=== PATIENT | female | born 1950 | race Caucasian/White ===

== ENCOUNTER 2019-05-02 14:04 | Outpatient (RCR) | payer MEDICARE, OTHER, SELFPAY | END 2019-05-19 23:59 | disposition home or self-care (01) | LOC: AOT 14:04 | PROVIDERS: Family Provider Family Medicine; PCP Family Medicine; Referring Provider Orthopaedic Surgery; Visit Provider Orthopaedic Surgery | DX: M25.532 Pain in left wrist (principal) | CPT/HCPCS: 97110; 97166; 97530 ==

== ENCOUNTER 2019-05-20 06:00 | Outpatient (RCR) | payer MEDICARE, OTHER, SELFPAY | END 2019-06-01 23:00 | disposition home or self-care (01) | LOC: AOT 06:00 | PROVIDERS: Family Provider Family Medicine; PCP Family Medicine; Referring Provider Orthopaedic Surgery; Visit Provider Orthopaedic Surgery | DX: M25.532 Pain in left wrist (principal) | CPT/HCPCS: 97530 ==

== ENCOUNTER → 2019-12-24 09:59 | Outpatient (BNVA) | payer MEDICARE, OTHER, SELFPAY | PROVIDERS: Family Provider Family Medicine; PCP Family Medicine; Visit Provider Internal Medicine | DX: R53.83 Other fatigue (principal); Z79.899 Other long term (current) drug therapy; Z11.59 Encounter for screening for other viral diseases; Z11.1 Encounter for screening for respiratory tuberculosis; M32.9 Systemic lupus erythematosus, unspecified; R76.8 Other specified abnormal immunological findings in serum; D86.9 Sarcoidosis, unspecified; N18.9 Chronic kidney disease, unspecified; M25.50 Pain in unspecified joint | CPT/HCPCS: 36415; 99204 ==

== ENCOUNTER 2019-12-24 12:00 | Outpatient (CLI) | payer MEDICARE, OTHER, SELFPAY ==
--- NOTE | 2019-12-24 12:22 | XR_ITS ---
WS: [id number] Right elbow, 2 views, 12/24/2019 Clinical Data: elbow pain Comparison: None. Findings: No fractures or dislocations are seen. The radial head is normal. The soft tissues are unremarkable. No bone destruction or erosion is present. There is no periarticular demineralization or calcificatio n seen. XR/XR elbow RT 2V [id number] Impression: Negative right elbow.
--- NOTE | 2019-12-24 12:22 | XR_ITS ---
WS: [id number] Right hand, 2 views, 12/24/2019 Clinical Data: hand pain Comparison: None. Findings: No fractures or dislocations are seen. The soft tissues are unremarkable. The joint space s are normal Mild periarticular demineralization of the IP joints is present. XR/XR hand RT 2V [id number] Impression: Mild periarticular demineralization of the IP joints.
--- NOTE | 2019-12-24 12:22 | XR_ITS ---
WS: [id number] Left hand, 2 views, 12/24/2019 Clinical Data: hand pain Comparison: None. Findings: No fractures or dislocations are seen. The soft tissues are unremarkable. The joint spaces are normal Mild periarticular demineralization of the IP joints is noted. XR/XR hand LT 2V [id number] Impression: Mild periarticular demineralization of the IP joints.
== END 2019-12-24 12:01 | disposition home or self-care (01) ==
LOC: RADWPI 12:07
PROVIDERS: Family Provider Family Medicine; PCP Family Medicine; Visit Provider Internal Medicine
DX: M25.521 Pain in right elbow (principal); M79.642 Pain in left hand; M79.641 Pain in right hand; M81.0 Age-related osteoporosis without current pathological fracture; R76.8 Other specified abnormal immunological findings in serum; D86.9 Sarcoidosis, unspecified
CPT/HCPCS: 73070; 73120; 80053; 81003; 82306; 82550; 82955; 83540; 84550; 85025; 86140; 86431; 86480; 86704; 86803; 86812; 87340

== ENCOUNTER → 2020-02-28 10:46 | Outpatient (BNVA) | payer MEDICARE, OTHER, SELFPAY | PROVIDERS: Family Provider Family Medicine; PCP Family Medicine; Visit Provider Internal Medicine | DX: R76.8 Other specified abnormal immunological findings in serum (principal); M06.9 Rheumatoid arthritis, unspecified; M32.9 Systemic lupus erythematosus, unspecified; N18.9 Chronic kidney disease, unspecified | CPT/HCPCS: 99214 ==

== ENCOUNTER 2020-03-07 13:59 | Outpatient (CLI) | payer MEDICARE, OTHER, SELFPAY ==
--- NOTE | 2020-03-07 14:03 | US_ITS ---
WS: [id number] RENAL ULTRASOUND REASON FOR EXAM: CHRONIC KIDNEY DZ, STAGE 3 TECHNIQUE: Grayscale and Doppler ultrasound examination of the kidneys. FINDINGS: Right kidney: Right kidney measures 9.7 cm x 4.9 cm x 5.0 cm. Large amount of sinus fibrolipomatosis. No mass, calculus, or hydronephrosis. Left kidney: Left kidney measures 9.9 cm x 4.4 cm x 6.2 cm. Large amount of sinus fibrolipomatosis. N o mass, calculus, or hydronephrosis. No mass or calculus is seen in the urinary bladder. US/US renal BI* [id number] IMPRESSION: Small kidneys with significant renal parenchymal loss.
== END 2020-03-07 14:00 | disposition home or self-care (01) ==
PROVIDERS: PCP Family Medicine; Visit Provider Internal Medicine Nephrology
DX: N18.31 Chronic kidney disease, stage 3a (principal)
CPT/HCPCS: 76770

== ENCOUNTER → 2020-05-21 12:40 | Outpatient (BNVA) | payer MEDICARE, OTHER, SELFPAY | PROVIDERS: PCP Family Medicine; Visit Provider Internal Medicine | DX: M06.9 Rheumatoid arthritis, unspecified (principal); N18.9 Chronic kidney disease, unspecified; R76.8 Other specified abnormal immunological findings in serum | CPT/HCPCS: 99214 ==

== ENCOUNTER 2020-07-01 09:06 | Outpatient (CLI) | payer MEDICARE, OTHER, SELFPAY ==
--- NOTE | 2020-07-01 09:12 | MM_ITS ---
WS: [id number] BILATERAL DIGITAL DIAGNOSTIC MAMMOGRAM MAMMOGRAPHY WITH CAD CLINICAL INFORMATION: BREAST LESION HISTORY: COMPARISON: None. TECHNIQUE: Bilateral CC, MLO, and ML views. FINDINGS: Scattered fibroglandular densities bilaterally. Palpable marker inner left breast. No mammographic ab normalities in this area. Ultrasound is pending. Vascular calcification. A few punctate calcifications. Right breast is unremarkable. ULTRASOUND BREAST LEFT TECHNIQUE: Ultrasound left breast focused area of concern. CLINICAL INFORMATION: BREAST LESION COMPARISON: None. FINDINGS: Ultrasound left breast at the 9 to 10:00 position 6 cm from the nipple in the area of concern. Normal underlying breast tissue. No cystic or solid lesions. No lesions to target for biopsy. Recommend ret urn to annual screening mammography. MM/[place] [id number] IMPRESSION: BI-RADS: 2-Benign FOLLOW UP: 1 Year Follow-up Recommend return to annual screening mammography.
--- NOTE | 2020-07-01 10:07 | US_ITS ---
WS: [id number] BILATERAL DIGITAL DIAGNOSTIC MAMMOGRAM MAMMOGRAPHY WITH CAD CLINICAL INFORMATION: BREAST LESION HISTORY: COMPARISON: None. TECHNIQUE: Bilateral CC, MLO, and ML views. FINDINGS: Scattered fibroglandular densities bilaterally. Palpable marker inner left breast. No mammographic ab normalities in this area. Ultrasound is pending. Vascular calcification. A few punctate calcifications. Right breast is unremarkable. ULTRASOUND BREAST LEFT TECHNIQUE: Ultrasound left breast focused area of concern. CLINICAL INFORMATION: BREAST LESION COMPARISON: None. FINDINGS: Ultrasound left breast at the 9 to 10:00 position 6 cm from the nipple in the area of concern. Normal underlying breast tissue. No cystic or solid lesions. No lesions to target for biopsy. Recommend ret urn to annual screening mammography. US/US breast LT limited* [id number] IMPRESSION: BI-RADS: 2-Benign FOLLOW UP: 1 Year Follow-up Recommend return to annual screening mammography.
== END 2020-07-01 09:07 | disposition home or self-care (01) ==
LOC: RADSHAW 09:09
PROVIDERS: PCP Family Medicine; Visit Provider Family Medicine
DX: N64.89 Other specified disorders of breast (principal)
CPT/HCPCS: 76642; 77066

== ENCOUNTER 2020-08-21 09:14 | Outpatient (CLI) | payer MEDICARE, OTHER, SELFPAY ==
--- NOTE | 2020-08-21 09:24 | USCV_ITS ---
Rebecca Olivera Age: 69 Gender: F : 1950 Exam Date: 08/21/2020 09:47 Ordering Phys: Chip Savage MD Technologist: Ann Rabago Exam Location: [facility] [place] Indication: Systolic heart murmur BP: 150 / 64 HR: 69 Rhythm: Sinus Technical Quality: Suboptimal MEASUREMENTS (Male / Female) Normal Values 2D ECHO LV Diastolic Diameter PLAX 4.8 cm 4.2 - 5.9 / 3.9 - 5.3 cm LV Systolic Diameter PLAX 3.8 cm LV Chamber Size 3.7 cm IVS Diastolic Thickness 1.2 cm 0.6 - 1.0 / 0.6 - 0.9 cm IVS Systolic Thickness 1.7 cm LVPW Diastolic Thickness 1.1 cm 0.6 - 1.0 / 0.6 - 0.9 cm LVPW Systolic Thickness 1.3 cm RV Chamber Size 2.8 cm LVOT Diameter 2.1 cm LV Ejection Fraction 2D Teich 40.6 % LV Ejection Fraction MOD 2C 49.9 % LV Ejection Fraction 2C AL 49.2 % LA Diameter 3.1 cm LA Width 3.3 cm LA Height 5.4 cm RA Width 2.7 cm RA Height 5.1 cm Aorta at Sinotubular Diameter 2.6 cm M-MODE LV Diastolic Diameter MM 5.9 cm 4.2 - 5.9 / 3.9 - 5.3 cm LV Systolic Diameter MM 4.1 cm LV Ejection Fraction MM Teich 58.4 % IVS Diastolic Thickness MM 1.1 cm 0.6 - 1.0 / 0.6 - 0.9 cm IVS Systolic Thickness MM 1.6 cm LVPW Diastolic Thickness MM 1.2 cm 0.6 - 1.0 / 0.6 - 0.9 cm LVPW Systolic Thickness MM 1.7 cm RV Diastolic Diameter MM 1.3 cm Aortic Annulus Diameter 3.1 cm LA Ao Ratio MM 1.2 MV E Point Septal Separation 0.7 cm DOPPLER AV Peak Velocity 176.0 cm/s LVOT Peak Velocity 93.0 cm/s AV Area Cont Eq vti 2.3 cm squared AV Area Cont Eq pk 1.8 cm squared MV Area PHT 3.9 cm squared Mitral E to A Ratio 1.1 MV E' Velocity 60.0 cm/s Mitral E to MV E' Ratio 10.6 Mitral E to LV E' Lateral Ratio 10.2 Mitral E to LV E' Septal Ratio 11.2 TR Peak Velocity 209.0 cm/s TR Peak Gradient 17.5 mmHg TV Peak E Velocity 62.0 cm/s Right Atrial Pressure 3.0 mmHg Pulmonary Artery Systolic Pressu 20.5 mmHg PV Peak Velocity 80.0 cm/s RV Acceleration Time 0.1 s RV Ejection Time 0.3 s RV AcT/ET 0.2 FINDINGS Left Ventricle Normal left ventricular cavity size. Normal left ventricular systolic function. No regional wall motion abnormalities. Left ventricular ejection fraction is estimated at 58 %. Grade I/IV diastolic dysfunction (abnormal relaxation filling pattern), normal to mildly elevated filling pressures. Right Ventricle The right ventricle is normal in size and function. Right Atrium The right atrium is normal in size. Left Atrium The left atrium is normal in size. Mitral Valve Moderately thickened mitral valve. No mitral valve stenosis. Mild mitral valve regurgitation. Aortic Valve Moderate aortic valve calcification. Mild aortic valve stenosis, mean gradient 7.4 mmHg, CHRIS 2.3 cm squared. Trace aortic valve regurgitation. Tricuspid Valve Structurally normal tricuspid valve without significant stenosis or regurgitation. Pulmonary artery systolic pressure is normal. Pulmonic Valve Structurally normal pulmonic valve without significant stenosis. There is no pulmonic regurgitation. Pericardium Normal pericardium without effusion. Aorta Normal ascending aorta dimension. CONCLUSIONS 1-Normal left ventricular cavity size. Normal left ventricular systolic function. No regional wall motion abnormalities. Left ventricular ejection fraction is estimated at 58 %. Grade I/IV diastolic dysfunction (abnormal relaxation filling pattern), normal to mildly elevated filling pressures. 2-Moderately thickened mitral valve. No mitral valve stenosis. Mild mitral valve regurgitation. 3-Moderate aortic valve calcification. Mild aortic valve stenosis, mean gradient 7.4 mmHg, CHRIS 2.3 cm squared. Trace aortic valve regurgitation. 4-There is no pericardial effusion. 5-Pulmonary artery systolic pressure is within normal limits. 6-Right atrial pressure is around 5 mm of mercury. 7-When compared to the prior echocardiogram dated 26 April 2017 there appeared to be no significant difference Nell Yates MD (Electronically Signed) Final Date: 22 August 2020 21:59 S
== END 2020-08-21 09:15 | disposition home or self-care (01) ==
LOC: RAD 09:17
PROVIDERS: PCP Family Medicine; Visit Provider Family Medicine
DX: R01.1 Cardiac murmur, unspecified (principal); I08.0 Rheumatic disorders of both mitral and aortic valves
CPT/HCPCS: 93306

== ENCOUNTER → 2020-11-20 13:27 | Outpatient (BNVA) | payer MEDICARE, OTHER, SELFPAY | PROVIDERS: PCP Family Medicine; Visit Provider Internal Medicine | DX: N18.9 Chronic kidney disease, unspecified (principal); R76.8 Other specified abnormal immunological findings in serum; Z79.899 Other long term (current) drug therapy | CPT/HCPCS: 36415; 80053; 85025; 85651; 86140 ==

== ENCOUNTER → 2020-11-25 12:44 | Outpatient (BNVA) | payer MEDICARE, OTHER, SELFPAY | PROVIDERS: PCP Family Medicine; Visit Provider Internal Medicine | DX: R76.8 Other specified abnormal immunological findings in serum (principal); N18.9 Chronic kidney disease, unspecified; R21 Rash and other nonspecific skin eruption; M25.569 Pain in unspecified knee | CPT/HCPCS: 99214 ==

== ENCOUNTER 2020-12-09 16:19 | Inpatient (IN) | payer MEDICARE, OTHER, SELFPAY ==
[2020-12-09] VITALS (11 sets, daily range): BP systolic 114–147; BP diastolic 75–89; PULSE 79–96; RESP 16–24; TEMP 36.9–37.1; O2SAT 86–95
--- NOTE | 2020-12-09 16:46 | XRR_ITS ---
PROCEDURE INFORMATION: Exam: XR Chest Exam date and time: 12/09/2020 4:46 PM Age: 70 years old Clinical indication: Shortness of breath; Additional info: Dyspnea TECHNIQUE: Imaging protocol: XR of the chest. Views: 1 view. COMPARISON: CR Chest 2 views* [id number] 04/28/2018 5:03 AM FINDINGS: Lungs: There is patchy ill-defined opacity in the lower lungs bilaterally. Pleural spaces: There is no pleural effusion or pneumothorax. Heart/Mediastinum: There is mild enlargement of the cardiac silhouette. Bones/joints: Bones are unremarkable. XR/XR chest 1V portable [id number] IMPRESSION: Bilateral lower lung opacities suggest infection or pulmonary edema.
--- NOTE | 2020-12-09 16:46 | ECG_ITS ---
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 Measurements Intervals [place] Rate: 84 P: 37 ND: 175 QRS: 20 QRSD: 90 T: 29 QT: 388 QTc: 459 Interpretive Statements SINUS RHYTHM WITH OCCASIONAL SUPRAVENTRICULAR PREMATURE COMPLEXES Compared to ECG 04/25/2018 21:21:16 No significant changes Electronically Signed On 12-10-2020 23:25:56 CDT by Alina Campos M.D. [email or web address]
--- NOTE | 2020-12-09 16:55 | ED_ITS ---
HPI - SOB/Dyspnea General: Chief Complaint: Shortness of Breath/Dyspnea Stated Complaint: LOW 02 Time Seen by Provider: 12/09/20 16:44 History of Present Illness: HPI Narrative: 70-year-old female with a history of asthma presents with 2 to 3 days of worsening wheezing and cough. Cough is nonproductive she denies any fever no diarrhea no nausea sets of some mild myalgias. She was placed on a prednisone taper by her primary care doc she has been using albuterol nebs per last one was earlier this morning. She has had myalgias as well as low-grade fever. MD elicited complaint: shortness of breath and cough Pertinent past history: asthma Onset (ago): day(s) Severity: moderate Exacerbating factors: exertion, movement and coughing Relieving factors: oxygen and rest Known history of: asthma Associated symptoms: Reports chest congestion and cough; Deny abdominal pain, chest pain, diaphoresis, dizziness, extremity pain, fever(s), hemoptysis, lightheadedness, myalgias, nausea, orthopnea, palpitations, paresthesias, polydipsia, polyuria, rash, sense of impending doom, syncope or vomiting Treatment prior to arrival: none Review of Systems Const: Denies: fever(s) or diaphoresis Card: Denies: chest pain, palpitations, lightheadedness, syncope or orthopnea Resp: Reports: chest congestion; Denies: hemoptysis GI: Denies: abdominal pain, nausea or vomiting Musc: Denies: extremity pain Neuro: Denies: dizziness Endo: Denies: polyuria or polydipsia PFS ED PFSH: Medical History (Updated 12/11/20 @ 06:29 by Gerry House DO) Arthritis CKD (chronic kidney disease) Gout Hypertension Hypothyroidism Lupus Surgical History H/O abdominal surgery (~2004) H/O tubal ligation (~1971) Hx of bilateral oophorectomy (~2003) Hx of eye surgery (~2014) Hx of hysterectomy (~1983) Family History Grandfather CAD (coronary artery disease) Social History Smoking and tobacco status: never smoked Alcohol intake: never History of recent travel: No Physical Exam Const: COMMON NORMALS: no acute distress GENERAL APPEARANCE: cooperative and comfortable ORIENTATION/CONSCIOUSNESS: Yes awake, Yes oriented to person, Yes oriented to place and Yes oriented to time Resp: AUSCULTATION: crackles and wheezes Cardio: COMMON NORMALS: regular rate, regular rhythm and No murmurs present (Cardio) RATE: regular rate RHYTHM: regular rhythm GI: COMMON NORMALS: Soft to palpation and No hepatosplenomegaly present AUSCULTATION: Yes normoactive bowel sounds PALPATION: Yes Soft to palpation, No Tenderness to palpation present (GI), No Guarding due to palpation present (GI) and Yes No hepatosplenomegaly present Extremity: COMMON NORMALS: normal to inspection, capillary refill normal, no clubbing, cyanosis or edema, no calf tenderness and no pedal edema Neuro: SENSORIUM/ORIENTATION: Yes oriented to person, Yes oriented to place and Yes oriented to time Skin: COMMON NORMALS: no rashes or lesions noted GENERAL SKIN EXAM: no rashes or lesions noted Course Vital Signs: Vital signs: Vital Signs Temperature 97.5 F L 12/11/20 04:00 Pulse Rate 74 12/11/20 04:00 Respiratory Rate 15 12/11/20 04:00 Blood Pressure 126/55 12/11/20 04:00 Pulse Oximetry 93 12/11/20 04:00 MDM - SOB/Dyspnea MDM Narrative: Medical decision making narrative: Labs, EKG and imaging reviewed as on the chart.. Patient has Covid pneumonitis complicated by her asthma. Her oxygen needs are not significant however given her age and progress of her symptoms as well as her underlying asthma and her physical exam at this time which demonstrates significant expiratory wheezes I am concerned about progression of the disease process in her and I think she will require further supportive care. Discussed with hospitalist will admit to the hospital. Lab Data: Labs: Lab Results 12/09/20 12/09/20 12/09/20 16:50 16:50 16:50 WBC 5.1 10^3/uL 10^3/ uL (4.0-10.0) RBC 3.88 10^6/uL L 10 ^6/uL (4.1-5.3) Hgb 11.7 g/dL g/dL (11.5-15.3) Hct 35.6 % L % (37.0-47.0) MCV 91.8 fl fl (81-99) MCH 30.2 pg pg (28.0-34.0) MCHC 32.9 g/dL g/dL (30.0-36.0) RDW 15.4 % H % (12.1-15.1) Plt Count 207 10^3/cmm 10^3 /cmm (130-400) MPV 9.9 fL fL (7.4-10.4) Neut % (Auto) 81.1 % % Lymph % (Auto) 12.0 % % [place] % (Auto) 6.1 % % Eos % (Auto) 0.0 % % Baso % (Auto) 0.4 % % Neut # (Auto) 4.14 10^3/uL 10^3 /uL (1.8-7.7) Lymph # (Auto) 0.6 10^3/uL L 10^ 3/uL (0.8-4.8) [place] # (Auto) 0.3 10^3/uL 10^3/ uL (0.2-0.9) Eos # (Auto) 0.0 10^3/uL 10^3/ uL (0.0-0.8) Baso # (Auto) 0.0 10^3/uL 10^3/ uL (0.0-0.1) Nucleated RBC % (a uto) 0 % % Nucleated RBCs # 0.0 /100WBC /100W BC D-Dimer 0.95 ug/mIFEU H u g/mIFEU (0-0.59) Specimen Type Sample Site ABG pH ABG pCO2 ABG pO2 ABG HCO3 ABG Base Excess Jacques Test Hematocrit O2 Delivery Device O2 Liters/Min FiO2 Software Maintenance Engineer ID Sodium 140 mmol/L mmol/L (136-145) Potassium 4.3 mmol/L mmol/L (3.5-5.1) Chloride 100 mmol/L mmol/L (98-107) Carbon Dioxide 28 mmol/L mmol/L (22-29) Anion Gap 16.3 (5-19) BUN 22 mg/dL mg/dL (8-23) Creatinine 1.4 mg/dL H mg/dL (0.5-0.9) GFR Calculation Not Reportable Glucose 119 mg/dL H mg/dL (65-115) Calculated Osmolal ity 294 mOsm/kg mOsm/ kg (285-295) Lactic Acid Calcium 8.1 mg/dL L mg/dL (8.5-10.5) Total Bilirubin 0.3 mg/dL mg/dL (0.15-1.2) AST 18 U/L U/L (0-32) ALT 17 U/L U/L (0-33) Alkaline Phosphata se 98 IU/L IU/L (35-105) Troponin T Baselin e C-Reactive Protein 42.4 mg/L H mg/L (0.0-4.9) Total Protein 6.9 g/dL g/dL (6.6-8.7) Albumin 3.7 g/dL g/dL (3.5-5.2) Globulin 3.2 g/dL g/dL (1.3-4.6) Nasal/Oral COVID-1 9 PCR SARS-CoV-2 Ag (Rap id) 12/09/20 12/09/20 12/09/20 16:50 16:50 17:00 WBC RBC Hgb Hct MCV MCH MCHC RDW Plt Count MPV Neut % (Auto) Lymph % (Auto) [place] % (Auto) Eos % (Auto) Baso % (Auto) Neut # (Auto) Lymph # (Auto) [place] # (Auto) Eos # (Auto) Baso # (Auto) Nucleated RBC % (a uto) Nucleated RBCs # D-Dimer Specimen Type Sample Site ABG pH ABG pCO2 ABG pO2 ABG HCO3 ABG Base Excess Jacques Test Hematocrit O2 Delivery Device O2 Liters/Min FiO2 Software Maintenance Engineer ID Sodium Potassium Chloride Carbon Dioxide Anion Gap BUN Creatinine GFR Calculation Glucose Calculated Osmolal ity Lactic Acid 0.7 mmol/L mmol/L (0.5-2.2) Calcium Total Bilirubin AST ALT Alkaline Phosphata se Troponin T Baselin e 17 ng/L H ng/L (0-10) C-Reactive Protein Total Protein Albumin Globulin Nasal/Oral COVID-1 9 PCR SARS-CoV-2 Ag (Rap id) Positive H (Negative) 12/09/20 12/09/20 17:00 17:15 WBC RBC Hgb Hct MCV MCH MCHC RDW Plt Count MPV Neut % (Auto) Lymph % (Auto) [place] % (Auto) Eos % (Auto) Baso % (Auto) Neut # (Auto) Lymph # (Auto) [place] # (Auto) Eos # (Auto) Baso # (Auto) Nucleated RBC % (a uto) Nucleated RBCs # D-Dimer Specimen Type Arterial Sample Site Brachial, left ABG pH 7.45 (7.35-7.45) ABG pCO2 40.9 mmHg mmHg (35-45) ABG pO2 72.7 mmHg L mmHg (80.0-100.0) ABG HCO3 28.6 mmol/L H mmo l/L (22-26) ABG Base Excess 4.3 mmol/L H mmol /L (-2.0-2.0) Jacques Test N/a Hematocrit 35.4 % L % (37-47) O2 Delivery Device Nc O2 Liters/Min 3.0 % % FiO2 32.0 % % Software Maintenance Engineer ID Ed Sodium Potassium Chloride Carbon Dioxide Anion Gap BUN Creatinine GFR Calculation Glucose Calculated Osmolal ity Lactic Acid Calcium Total Bilirubin AST ALT Alkaline Phosphata se Troponin T Baselin e C-Reactive Protein Total Protein Albumin Globulin Nasal/Oral COVID-1 9 PCR Detected H SARS-CoV-2 Ag (Rap id) Discharge Plan Discharge Admit Provider: Kee Dewitt Clinical Impression: Pneumonia due to COVID-19 virus, Asthma exacerbation, FOUZIA (acute kidney injury) Condition: Stable Coding Level of Care Code ED Fusion Operator for Chg Fwd Exam Detailed
[2020-12-09 17:07] LABS: Basophils % 0.4 %; Nucleated Red Blood Cells % 0 %; White Blood Count 5.1 10^3/uL (4.0-10.0)
[2020-12-09 17:09] LABS: Hematocrit 35.6 % (37.0-47.0); Hemoglobin 11.7 g/dL (11.5-15.3); Lymphocytes # 0.6 10^3/uL (0.8-4.8); Mean Corpuscular HGB Conc 32.9 g/dL (30.0-36.0); Mean Corpuscular Hemoglobin 30.2 pg (28.0-34.0); Mean Corpuscular Volume 91.8 fl (81-99); Mean Platelet Volume 9.9 fL (7.4-10.4); Monocytes # 0.3 10^3/uL (0.2-0.9); Monocytes % 6.1 %; Neutrophils # 4.14 10^3/uL (1.8-7.7); Neutrophils % 81.1 %; Platelet Count 207 10^3/cmm (130-400); Red Blood Count 3.88 10^6/uL (4.1-5.3); Red Cell Distribution Width 15.4 % (12.1-15.1)
[2020-12-09] MEDS: dexamethasone 10 mg/mL INJ 6 MG IVP (17:19)
[2020-12-09] MEDS: terbutaline 1 mg/mL INJ 0.25 MG SUBCUT (17:19)
[2020-12-09 17:23] LABS: D Dimer 0.95 ug/mIFEU (0-0.59)
[2020-12-09 17:25] LABS: ABG PCO2 40.9 mmHg (35-45); ABG PH Result 7.45 (7.35-7.45); Arterial Blood Gas Hematocrit 35.4 % (37-47); Base Excess ABG 4.3 mmol/L (-2.0-2.0); Blood Gas Operator Identificat ED; Blood Gas Sample Site Brachial, left; Blood Gas Sample Type Arterial; HCO3 ABG 28.6 mmol/L (22-26); Oxygen Device NC; PO2 ABG 72.7 mmHg (80.0-100.0)
[2020-12-09 17:28] LABS: SARS Covid-2 Antigen Positive (Negative)
[2020-12-09 17:34] LABS: Lactic Sepsis W/Reflex 0.7 mmol/L (0.5-2.2)
[2020-12-09 17:35] LABS: Alanine Aminotransferase 17 U/L (0-33); Albumin Level 3.7 g/dL (3.5-5.2); Alkaline Phosphatase 98 IU/L (35-105); Anion Gap 16.3 (5-19); Aspartate Amino Transferase 18 U/L (0-32); Blood Urea Nitrogen 22 mg/dL (8-23); C Reactive Protein 42.4 mg/L (0.0-4.9); Calcium 8.1 mg/dL (8.5-10.5); Carbon Dioxide 28 mmol/L (22-29); Chloride 100 mmol/L (98-107); Globulin 3.2 g/dL (1.3-4.6); Glucose 119 mg/dL (65-115); Osmolality Calculated 294 mOsm/kg (285-295); Potassium 4.3 mmol/L (3.5-5.1); Sodium 140 mmol/L (136-145); Total Bilirubin 0.3 mg/dL (0.15-1.2); Total Protein 6.9 g/dL (6.6-8.7)
--- NOTE | 2020-12-09 19:03 | PM.HP ---
Providers/Chief Complaint Admitting Physician: Kee Dewitt MD Primary Care Provider: Chip Savage MD Chief Complaint: LOW 02 History of Present Illness Rebecca Olivera is a 70 year old female with a past medical history of moderate asthma, no history of ICU admissions, intubation, no history of exacerbation in the last year, her medical screener is in [place], history of mixed connective tissue disease on hydroxychloroquine, chronic kidney disease, gout, lupus, hypertension, insomnia, who presents to [facility] due to 3-week history of wheezing and shortness of breath. Patient tells me that she was recently up in [place] seeing her medical screener, she was having wheezing, shortness of breath, intermittent fevers, nonproductive cough, she thought she was having her regular asthma exacerbation, so she was given a long prednisone taper, no steroids. However she is finished the prednisone stay for acute and continues to have active wheezing, shortness of breath, intermittent fevers. She has not received the Covid vaccination. Denies a cardiovascular history. Denies history of smoking. Denies history of strokes. No history of diabetes. In the emergency room, she was found to have an asthma exacerbation, COVID-19 positive, hospitalist team was called for admission. During my examination is actively wheezing, airway sound tight, she has not received a breathing treatment, she is on 4 L, saturating in the high 90s, she is sitting forward, slightly tripod breathing, no intracostal no substernal retractions, does have nasal flaring, no evidence of respiratory distress, able to speakhalf sentences. Review of Systems Const: Denies: fever(s), chills, fatigue or malaise Eyes: Denies: change in vision or blurry vision ENMT: Denies: nasal congestion Card: Denies: chest pain, palpitations, irregular heart rhythm or lightheadedness Resp: Reports: dyspnea, non-productive cough and wheezing; Denies: productive cough GI: Denies: abdominal pain, nausea, vomiting, hematemesis, diarrhea, constipation, hematochezia or melena : Denies: flank pain, dysuria or urinary frequency Musc: Denies: neck pain or back pain Skin/Breast: Denies: rash Neuro: Denies: headache(s), dizziness or vertigo Medications/Allergies Home Medications Medication Instructions Recorded Confirmed Last Taken Type albuterol sulfate 90 mcg/actuation 1 inh INHALATION ONCE 03/29/19 11/25/20 Unknown History breath activated powder inhaler atorvastatin 20 mg tablet 20 mg PO ONCE 03/29/19 11/25/20 Unknown History azelastine 0.05 % eye drops 1 drop OPHTHALMIC (EYE) BID 03/29/19 11/25/20 Unknown History azelastine 137 mcg (0.1 %) nasal 1 spray INTRANASAL BID 03/29/19 11/25/20 Unknown History spray aerosol beclomethasone dipropionate 40 1 inh INHALATION BID 03/29/19 11/25/20 Unknown History mcg/actuation HFA breath activated aerosol cetirizine 10 mg capsule PO 03/29/19 11/25/20 Unknown History diltiazem HCl 180 mg 180 mg PO QAM 03/29/19 11/25/20 Unknown History capsule,extended release 24 hr fluticasone propionate 50 1 spray INTRANASAL BID 03/29/19 11/25/20 Unknown History mcg/actuation nasal spray,suspension furosemide 20 mg tablet 10 mg PO QAM 03/29/19 11/25/20 Unknown History omeprazole 20 mg capsule,delayed 20 mg PO BID 03/29/19 11/25/20 Unknown History release albuterol sulfate 90 mcg/actuation 2 puff INHALATION Q6H PRN 12/24/19 11/25/20 Unknown History aerosol inhaler allopurinol 100 mg tablet 100 mg PO DAILY 12/24/19 11/25/20 Unknown History calcium carbonate 600 mg (1,500 cap PO 12/24/19 11/25/20 Unknown History mg)-vitamin D3 500 unit capsule cyclobenzaprine 5 mg tablet 5 mg PO DAILY PRN tab 12/24/19 11/25/20 Unknown History diltiazem HCl 240 mg capsule,24 240 mg PO DAILY 12/24/19 11/25/20 Unknown History hr,extended release gabapentin 100 mg capsule 100 mg PO TID 12/24/19 11/25/20 Unknown History ipratropium bromide 21 mcg (0.03 2 spray INTRANASAL BID 12/24/19 11/25/20 Unknown History %) nasal spray levothyroxine 112 mcg tablet 112 mcg PO DAILY 12/24/19 11/25/20 Unknown History losartan 50 mg tablet 50 mg PO DAILY 12/24/19 11/25/20 Unknown History meloxicam 7.5 mg tablet 7.5 mg PO DAILY 12/24/19 11/25/20 Unknown History ropinirole 1 mg tablet 1 mg PO DAILY 12/24/19 11/25/20 Unknown History tiotropium bromide 18 mcg capsule 1 cap INHALATION DAILY 12/24/19 11/25/20 Unknown History with inhalation device tramadol 50 mg tablet 50 mg PO BID PRN 12/24/19 11/25/20 Unknown History triamcinolone acetonide 0.1 % 1 applic TOPICAL TID 12/24/19 11/25/20 Unknown History topical cream zolpidem 10 mg tablet 10 mg PO DAILY tab 12/24/19 11/25/20 Unknown History ascorbate calcium (vitamin C) 500 500 mg PO DAILY 11/25/20 11/25/20 Unknown History mg tablet bepotastine besilate 1.5 % eye 1 drp OPHTHALMIC (EYE) BID 11/25/20 11/25/20 Unknown History drops ferrous sulfate 325 mg (65 mg 325 mg PO DAILY 11/25/20 11/25/20 Unknown History iron) tablet bqbznapbngm-djh-hsbhviuu-vit cap PO 11/25/20 11/25/20 Unknown History C-Mn-hrb21 500 mg-333 mg-5 mg capsule montelukast 10 mg tablet 10 mg PO DAILY 11/25/20 11/25/20 Unknown History multivit with min-folic 1 tab PO DAILY 11/25/20 11/25/20 Unknown History acid-lutein 400 mcg-250 mcg chewable tablet nbafqpdo-wzt-WF 200 mcg-vit K 15 2 tab PO DAILY 11/25/20 11/25/20 Unknown History mcg-lycope 150 lht-vbaoss-eadn tablet multivitamin with minerals 1 tab PO DAILY 11/25/20 11/25/20 Unknown History neomycin-polymyxin B-dexameth eye drp OPHTHALMIC (EYE) 11/25/20 11/25/20 Unknown History drops,suspension nystatin 100,000 unit/gram topical 1 applic TOPICAL DAILY 11/25/20 11/25/20 Unknown History powder olopatadine 0.7 % eye drops 1 drp OPHTHALMIC (EYE) DAILY 11/25/20 11/25/20 Unknown History potassium chloride 10 mEq 10 meq PO DAILY 11/25/20 11/25/20 Unknown History capsule,extended release urea 40 % topical cream 1 applic TOPICAL BID 11/25/20 11/25/20 Unknown History vitamin B complex 1 tab PO DAILY 11/25/20 11/25/20 Unknown History hydroxychloroquine 200 mg tablet 200 mg PO BID #180 tab 12/09/20 Unknown Rx Allergies Allergy/AdvReac Type Severity Reaction Status Date / Time No Known Allergies Allergy Verified 11/25/20 13:28 PFSH Acute PFSH: Medical History (Updated 12/09/20 @ 19:14 by Kee Dewitt MD) Arthritis CKD (chronic kidney disease) Gout Hypertension Hypothyroidism Lupus Surgical History H/O abdominal surgery (~2004) H/O tubal ligation (~1971) Hx of bilateral oophorectomy (~2003) Hx of eye surgery (~2014) Hx of hysterectomy (~1983) Family History Grandfather CAD (coronary artery disease) Social History Smoking and tobacco status: never smoked Alcohol intake: never History of recent travel: No Vitals/I&O/Wt Last Vital Signs Temp 98.7 F 12/09/20 16:29 Pulse 79 12/09/20 18:26 Resp 22 H 12/09/20 18:26 BP 121/84 12/09/20 18:26 Pulse Ox 95 12/09/20 18:26 Weight last 48 hrs Weight 136.078 kg Physical Exam Const: COMMON NORMALS: no acute distress and patient oriented x3 HENMT: HEAD & SCALP: normocephalic Eye: COMMON NORMALS: Equal, round and reactive pupils present and EOMs intact bilaterally GENERAL EYE: appearance normal, both eyes and all related structures PUPIL: Yes Equal, round and reactive pupils present Neck/C-Spine: COMMON NORMALS: full ROM THYROID: Thyroid normal Lymph: LYMPHATIC: no lymphadenopathy noted Resp: COMMON NORMALS: normal respiratory effort, No retractions and No use of accessory muscles EFFORT & INSPECTION: Yes symmetric chest movement, Yes tachypneic, No retractions, No segmental paradoxical chest wall movement and Yes audible wheezes AUSCULTATION: wheezes OTHER: slight tripod breathing Cardio: COMMON NORMALS: regular rate, regular rhythm, S1 normal heart sound present, S2 normal heart sound present, No gallops present (Cardio), No clicks present (Cardio) and No murmurs present (Cardio) RATE: regular rate RHYTHM: regular rhythm HEART SOUNDS: S1 normal heart sound present and S2 normal heart sound present GI: COMMON NORMALS: Normal to inspection, nondistended, normoactive bowel sounds present, Soft to palpation, non-tender and No hepatosplenomegaly present Extremity: COMMON NORMALS: full ROM and no pedal edema Neuro: COMMON NORMALS: patient oriented x3, CN's II-XII intact bilaterally, moves all extremities and no focal motor deficits Psych: COMMON NORMALS: mental status grossly normal, Normal thought process present and cooperative THOUGHT PROCESS: Normal thought process present Data : 12/09/20 16:50 12/09/20 16:50 Micro: Microbiology 12/09/20 18:43 Blood Culture - Preliminary Blood SPECIMEN COLLECTED 12/09/20 17:00 Blood Culture - Preliminary Blood SPECIMEN COLLECTED A&P Assessment and plan (1) Pneumonia due to COVID-19 virus: -Asthma exacerbation secondary COVID-19 pneumonia -Currently with audible wheezing, tachypneic, can speak half sentences, slightly tripod breathing, has slight evidence of respiratory distress Plan: -Start Solu-Medrol 40 every 6 hours -DuoNebs every 4 hours -Budesonide every 12 hours -Vancomycin, cefepime -Vitamin C, zinc, vitamin D - incentive spirometer, flutter valve -Remdesivir -We will give 1 dose of magnesium -Given elevated BMI, she is a high risk of intubation in the next 2448 hrs. -We will consider Actemra based on clinical progress -Patient tells me she wants chest compressions, but is unsure if she wants intubation, for now I told her I will note that she is a full code, until I get a answer from her CKD, creatinine 1.4, continue to monitor Mixed connective tissue disease, hold hydroxychloroquine given risk of QT prolongation with remdesivir Status: Acute (2) Asthma: Status: Acute (3) Anti-BUSINESS SERVICES OFFICER antibodies present: Status: Acute (4) CKD (chronic kidney disease): Status: Acute (5) MARCELLO positive: Status: Acute (6) Asthma exacerbation: Status: Acute (7) FOUZIA (acute kidney injury): Status: Acute Attestations Medical Necessity Statement*: Patient requires hospitalization due to asthma exacerbation sec to COVID-19, inpatient greater than 2 midnights Coding Level of Care Code Acute Health And Wellness Advisor for g [facility] Diagnoses Pneumonia due to COVID-19 virus U07.1; J12.82 Asthma J45.909 Anti-BUSINESS SERVICES OFFICER antibodies present R76.8 CKD (chronic kidney disease) N18.9 MARCELLO positive R76.8 Asthma exacerbation J45.901 FOUZIA (acute kidney injury) N17.9
[2020-12-09] MEDS: ipratropium-albuterol 3 mL Neb INHALATION ×3 (19:23→23:45)
--- NOTE | 2020-12-09 19:24 | ECG_ITS ---
[facility] Test Date: 2020-12-09 Pat Name: Rebecca Olivera Department: Room: 269 Gender: Female Insurance Counselor: : 1950 Requested By: Kee Dewitt Order Number: [id number] Dalton MD: Alina Campos M.D. Measurements Intervals [place] Rate: 78 P: 57 PA: 181 QRS: 25 QRSD: 88 T: 45 QT: 386 QTc: 441 Interpretive Statements SINUS RHYTHM NONSPECIFIC T-WAVE ABNORMALITY Compared to ECG 12/09/2020 17:28:20 T-wave abnormality now present Electronically Signed On 12-10-2020 23:26:05 CDT by Alina Campos M.D. [id number]
--- NOTE | 2020-12-09 19:30 | PC.NURSE ---
Attempted to call report At 1900 this nurse attempted to contact the [facility] 2N floor and was informed that a call back in a few minutes would be needed as they were unable to take report. At 1929 this nurse attempted to call report once more and was informed that the nurse was unable to be located and would be contact the ED for report once located.
[2020-12-09 19:43] LABS: Troponin(5th) Baseline 17 ng/L (0-10)
[2020-12-09 21:41] LABS: Troponin 5 2HR 14.83 ng/L (0-10)
[2020-12-09 21:45] LABS: Troponin 5 2HR Delta -2.17 ABS# (0-10)
[2020-12-09] MEDS: remdesivir 200 MG in sodium chloride 0.9% (100 ml) 60 ML 100 MG IV (22:35)
[2020-12-09] MEDS: zolpidem 5 mg Tablet 10 MG PO (22:36)
[2020-12-09] MEDS: enoxaparin 40 mg/0.4 mL Syringe SUBCUT (22:36)
[2020-12-09] MEDS: gabapentin 100 mg Capsule PO (22:37)
[2020-12-09] MEDS: TRAMadol 50 mg Tablet PO (22:51)
--- NOTE | 2020-12-09 23:09 | PC.PHAR ---
Pharmacokinetic dosing service Date: 12/09/20 Time: 2299 Objective: Patient: Rebecca Olivera Floor: 269-1 Age: 70 yo Serum creatinine: 1.4 mg/dL Height: 61.0 Inches Weight (kg): 136.078 Diagnosis: Relevant medical/social history: Cultures and sensitivities: Other labs: Assessment: IBW (kg): 47.80 Dosing wt(kg): 83.1 Estimated Creatinine clearance (ml/min): 27.4 CRCL method: Cockcroft and Gault using ibw(default). Drug selected: Vancomycin Loading dose (mg): 0 Vd (liters): 74.8 (factor used: 0.9 L/kg) Rafael (hr-1): 0.027 Half life (hrs): 25.67 Recommended dose: 1500 mg Interval: 36 hrs Infusion time (hrs): 1.5 Predicted peak (mcg/mL): 31.6 Predicted trough (mcg/mL): 12.45 Adjusted body weight was selected for vancomycin dosing. To switch back, select the total body weight option above. Renal function is stable [ ] /unstable [ ] Recommendations: Give Vancomycin 1500 mg q 36 hrs with an expected Cpeak of 31.6 mcg/ml and an expected Ctrough of 12.45 mcg/ml Renal dosing of other antibiotics (review renal dosing of other medications and list guidelines here): Thank you for the consult, will continue to follow. Signature: Maria L Be[facility]
[2020-12-09] MEDS: cefepime 2,000 MG in sodium chloride 0.9% (plus) 50 ML 100 MG IV (23:21)
[2020-12-10] VITALS (14 sets, daily range): BP systolic 110–166; BP diastolic 62–91; PULSE 62–80; RESP 16–20; TEMP 36.4–37.1; O2SAT 94–98
--- NOTE | 2020-12-10 01:24 | ECG_ITS ---
[facility] Test Date: 2020-12-10 Pat Name: Rebecca Olivera Department: Room: 269 Gender: Female Certified Histologic Technician: : 1950 Requested By: Kee Dewitt Order Number: [id number] Dalton MD: Alina Campos M.D. Measurements Intervals [place] Rate: 65 P: 57 MI: 184 QRS: 44 QRSD: 94 T: 43 QT: 413 QTc: 432 Interpretive Statements SINUS RHYTHM NONSPECIFIC T-WAVE ABNORMALITY Compared to ECG 12/09/2020 22:00:07 No significant changes Electronically Signed On 12-10-2020 23:47:54 CDT by Alina Campos M.D. [email or web address] county memorial hospitalTiltan [email or web address]/[id number]
[2020-12-10 01:40] LABS: Hematocrit 31.3 % (37.0-47.0); Hemoglobin 10.3 g/dL (11.5-15.3); Lymphocytes # 0.4 10^3/uL (0.8-4.8); Lymphocytes % 9.6 %; Mean Corpuscular HGB Conc 32.9 g/dL (30.0-36.0); Mean Corpuscular Hemoglobin 30.7 pg (28.0-34.0); Mean Corpuscular Volume 93.4 fl (81-99); Mean Platelet Volume 9.3 fL (7.4-10.4); Monocytes # 0.1 10^3/uL (0.2-0.9); Neutrophils # 3.71 10^3/uL (1.8-7.7); Neutrophils % 86.9 %; Nucleated Red Blood Cells % 0 %; Platelet Count 179 10^3/cmm (130-400); Red Blood Count 3.35 10^6/uL (4.1-5.3); Red Cell Distribution Width 15.4 % (12.1-15.1); White Blood Count 4.3 10^3/uL (4.0-10.0)
[2020-12-10 02:12] LABS: Alanine Aminotransferase 15 U/L (0-33); Albumin Level 3.4 g/dL (3.5-5.2); Alkaline Phosphatase 80 IU/L (35-105); Anion Gap 16.2 (5-19); Aspartate Amino Transferase 17 U/L (0-32); Blood Urea Nitrogen 30 mg/dL (8-23); Calcium 7.7 mg/dL (8.5-10.5); Carbon Dioxide 26 mmol/L (22-29); Chloride 97 mmol/L (98-107); Globulin 2.8 g/dL (1.3-4.6); Glucose 199 mg/dL (65-115); Magnesium 2.2 mg/dL (1.7-2.3); Osmolality Calculated 292 mOsm/kg (285-295); Phosphorus 4.5 mg/dL (2.5-4.5); Potassium 4.2 mmol/L (3.5-5.1); Sodium 135 mmol/L (136-145); Thyroid Stimulating Hormone 2.03 uIU/mL (0.27-4.20); Total Bilirubin 0.2 mg/dL (0.15-1.2); Total Protein 6.2 g/dL (6.6-8.7)
[2020-12-10 02:14] LABS: NT Pro B Type Natriuretic Pept 1821 pg/mL (0-125); Procalcitonin 0.07 ng/mL (0-0.5); Troponin 5 6HR Delta -2.23 ng/L (0-12)
[2020-12-10] MEDS: magnesium sulfate premix 2 GM/50 ML PIGGYBACK IV (02:23)
[2020-12-10 02:25] LABS: Chol HDL Ratio 1.91 mg/dL (0.0-4.40); Cholesterol 107 mg/dL (0-200); HDL Cholesterol 56 mg/dL (60-100); LDL Cholesterol Calculated 41 mg/dL (50-129); LDL HDL Ratio 0.73 RATIO (0.00-3.22); Triglycerides 52 mg/dL (0-150)
[2020-12-10] MEDS: ipratropium-albuterol 3 mL Neb INHALATION ×6 (03:15→23:24)
[2020-12-10] MEDS: vancomycin 1,500 MG/300 ML PIGGYBACK 200 MG IV (03:23)
[2020-12-10] MEDS: zinc gluconate 50 mg Tablet PO (08:17)
[2020-12-10] MEDS: ascorbic acid 500 mg Tablet PO ×2 (08:17→17:03)
[2020-12-10] MEDS: pantoprazole DR 40 mg Tablet PO ×2 (08:17→17:03)
[2020-12-10] MEDS: cholecalciferol (vitamin D3) 1,000 unit Tablet 1000 UNIT PO (08:17)
[2020-12-10] MEDS: levothyroxine 112 mcg Tablet PO (08:23)
[2020-12-10] MEDS: docusate sodium 100 mg Capsule PO ×2 (08:23→17:03)
[2020-12-10] MEDS: losartan 50 mg Tablet PO (08:23)
[2020-12-10] MEDS: montelukast sodium 10 mg Tablet PO (08:23)
[2020-12-10] MEDS: ferrous sulfate EC 325 mg Tablet PO (08:23)
[2020-12-10] MEDS: ropinirole 1 mg Tablet PO (08:23)
[2020-12-10] MEDS: gabapentin 100 mg Capsule PO ×3 (08:23→20:33)
[2020-12-10] MEDS: TRAMadol 50 mg Tablet PO ×2 (09:55→20:33)
--- NOTE | 2020-12-10 10:26 | PC.PHAR ---
PT STATES SHE TAKES CARE OF HER OWN MEDICATIONS-PT STATES SHE TAKES THE MEDICATIONS ENTERED-PT STATES SHE IS ON THE 3 TABS A DAY DOSE ON THE PREDNISONE-PT STATES SHE STOP TAKING HER IRON LAST WEEK-NOTES ARE MADE IN SOME OF THE PHARMACY COMMENTS
[2020-12-10] MEDS: cefepime 2,000 MG in sodium chloride 0.9% (plus) 50 ML 100 MG IV ×2 (10:34→23:33)
[2020-12-10 14:01] LABS: Coronavirus Test Green County Detected
--- NOTE | 2020-12-10 15:35 | P.PN_ITS ---
Subjective Subjective: Interval history: Patient was seen this morning, her wheezing has improved, but continues to have expiratory wheezing, she feels a lot better, less shortness of breath with exertion, no nausea, no vomiting, no chest pain, is on 4.5 L, no fevers overnight, I clarified her CODE STATUS again, she still wants chest compressions, but she has not made a decision about intubation, again I clarified with her that for now she will be kept a full code until she makes her decision which can be done at any time Vitals/I&O/Wt Last Vital Signs Temp 98.0 F 12/10/20 15:15 Pulse 80 12/10/20 15:30 Resp 18 12/10/20 15:30 BP 166/91 12/10/20 15:15 Pulse Ox 97 12/10/20 15:30 12/10/20 12/10/20 12/10/20 06:59 14:59 22:59 Intake Total 580 / 580 530 / 530 Balance 580 / 580 530 / 530 Weight last 48 hrs Weight 136.078 kg Physical Exam Const: COMMON NORMALS: no acute distress and patient oriented x3 Neck/C-Spine: COMMON NORMALS: no JVD Resp: COMMON NORMALS: normal respiratory effort, No retractions and No use of accessory muscles AUSCULTATION: wheezes Cardio: COMMON NORMALS: no JVD, regular rate, regular rhythm, S1 normal heart sound present and S2 normal heart sound present RATE: regular rate RHYTHM: regular rhythm HEART SOUNDS: S1 normal heart sound present and S2 normal heart sound present GI: COMMON NORMALS: Normal to inspection, nondistended, normoactive bowel sounds present, Soft to palpation, non-tender, No hepatosplenomegaly present, no masses and no bruits PALPATION: Yes Soft to palpation and Yes No hepatosplenomegaly present Extremity: COMMON NORMALS: capillary refill normal, no clubbing, cyanosis or edema and no calf tenderness NARRATIVE EXTREMITY EXAM: Nonpitting edema Neuro: COMMON NORMALS: patient oriented x3 Psych: COMMON NORMALS: mental status grossly normal Data : 12/10/20 01:33 12/10/20 01:33 Micro: Microbiology 12/09/20 18:43 Blood Culture - Preliminary Blood SPECIMEN COLLECTED 12/09/20 17:00 Blood Culture - Preliminary Blood SPECIMEN COLLECTED A&P Assessment and plan (1) Pneumonia due to COVID-19 virus: -Asthma exacerbation secondary COVID-19 pneumonia -Currently with expiratory wheezing, can speak full sentences, no evidence of respiratory distress Plan: -Start Solu-Medrol 40 every 6 hours -DuoNebs every 4 hours -Budesonide every 12 hours -Vancomycin, cefepime -Vitamin C, zinc, vitamin D - incentive spirometer, flutter valve -Remdesivir -Given elevated BMI, she is a high risk of intubation in the next 48 hrs. -We will consider Actemra based on clinical progress -Follow blood cultures, sputum cultures, urine bacterial antigens -Patient tells me she wants chest compressions, but is unsure if she wants intubation, is still undecided, for now I told her I will note that she is a full code, until I get a answer from her -Lovenox for DVT prophylaxis Elevated BNP, with nonpitting edema, will do 1 trial of 40 mg of Lasix Elevated blood sugar, 199, A1c, monitor blood sugars closely CKD, creatinine 1.3, continue to monitor Non-ST elevation DC, no clinically significant troponin, no significant delta troponin, no chest pain complaints, no acute ST-T wave changes, likely from acute respiratory failure as above Mixed connective tissue disease, hold hydroxychloroquine given risk of QT prolongation with remdesivir Status: Acute (2) Asthma: Status: Acute (3) Anti-FURNACE CHECKER antibodies present: Status: Acute (4) CKD (chronic kidney disease): Status: Acute (5) MARCELLO positive: Status: Acute (6) Asthma exacerbation: Status: Acute (7) FOUZIA (acute kidney injury): Status: Acute Attestations Medical Necessity Statement*: Requires hospitalization due to pneumonia secondary COVID-19, with asthma exacerbation Coding Level of Care Code Acute Pipe Bending Machine Operator for [facility] Diagnoses Pneumonia due to COVID-19 virus U07.1; J12.82 Asthma J45.909 Anti-FURNACE CHECKER antibodies present R76.8 CKD (chronic kidney disease) N18.9 MARCELLO positive R76.8 Asthma exacerbation J45.901 FOUZIA (acute kidney injury) N17.9
[2020-12-10] MEDS: FUROsemide 10 mg/mL SDV 4mL 40 MG IVP (15:55)
[2020-12-10 16:19] LABS: Estmated Average Glucose 123; Hemoglobin A1C 5.9 % (4.0-6.0)
[2020-12-10 16:31] LABS: Glucose Point of Care 209 mg/dL (70-110)
[2020-12-10] MEDS: remdesivir 100 MG in sodium chloride 0.9% (100 ml) 80 ML IV (17:03)
[2020-12-10] MEDS: dilTIAZem ER (24HR) 180 mg Capsule PO (20:32)
[2020-12-10] MEDS: zolpidem 5 mg Tablet 10 MG PO (20:33)
[2020-12-10] MEDS: enoxaparin 40 mg/0.4 mL Syringe SUBCUT (20:34)
[2020-12-10 21:22] LABS: Glucose Point of Care 173 mg/dL (70-110)
[2020-12-11] VITALS (16 sets, daily range): BP systolic 107–166; BP diastolic 55–87; PULSE 64–82; RESP 15–24; TEMP 35.9–36.9; O2SAT 93–97
[2020-12-11 03:20] LABS: Basophils % 0.1 %; Hematocrit 36.2 % (37.0-47.0); Hemoglobin 11.6 g/dL (11.5-15.3); Lymphocytes # 0.8 10^3/uL (0.8-4.8); Lymphocytes % 7.6 %; Mean Corpuscular Hemoglobin 30.4 pg (28.0-34.0); Mean Corpuscular Volume 94.8 fl (81-99); Mean Platelet Volume 9.9 fL (7.4-10.4); Monocytes # 0.3 10^3/uL (0.2-0.9); Monocytes % 2.9 %; Neutrophils # 9.21 10^3/uL (1.8-7.7); Neutrophils % 88.8 %; Nucleated Red Blood Cells % 0 %; Platelet Count 236 10^3/cmm (130-400); Red Blood Count 3.82 10^6/uL (4.1-5.3); Red Cell Distribution Width 15.2 % (12.1-15.1); White Blood Count 10.4 10^3/uL (4.0-10.0)
[2020-12-11] MEDS: ipratropium-albuterol 3 mL Neb INHALATION ×5 (03:22→21:45)
[2020-12-11 03:42] LABS: Alanine Aminotransferase 18 U/L (0-33); Albumin Level 3.5 g/dL (3.5-5.2); Alkaline Phosphatase 85 IU/L (35-105); Anion Gap 17.7 (5-19); Aspartate Amino Transferase 24 U/L (0-32); Blood Urea Nitrogen 34 mg/dL (8-23); Calcium 8.4 mg/dL (8.5-10.5); Carbon Dioxide 24 mmol/L (22-29); Chloride 100 mmol/L (98-107); Globulin 3.8 g/dL (1.3-4.6); Glucose 190 mg/dL (65-115); Magnesium 2.6 mg/dL (1.7-2.3); Osmolality Calculated 299 mOsm/kg (285-295); Phosphorus 4.5 mg/dL (2.5-4.5); Potassium 3.7 mmol/L (3.5-5.1); Sodium 138 mmol/L (136-145); Total Bilirubin 0.2 mg/dL (0.15-1.2); Total Protein 7.3 g/dL (6.6-8.7)
[2020-12-11 03:48] LABS: Procalcitonin 0.08 ng/mL (0-0.5)
[2020-12-11 06:37] LABS: Glucose Point of Care 225 mg/dL (70-110)
[2020-12-11] MEDS: pantoprazole DR 40 mg Tablet PO ×2 (08:30→17:39)
[2020-12-11] MEDS: docusate sodium 100 mg Capsule PO ×2 (08:30→17:39)
[2020-12-11] MEDS: ropinirole 1 mg Tablet PO ×2 (08:30→23:14)
[2020-12-11] MEDS: montelukast sodium 10 mg Tablet PO (08:30)
[2020-12-11] MEDS: levothyroxine 112 mcg Tablet PO (08:30)
[2020-12-11] MEDS: losartan 50 mg Tablet PO (08:30)
[2020-12-11] MEDS: ascorbic acid 500 mg Tablet PO ×2 (08:30→17:39)
[2020-12-11] MEDS: ferrous sulfate EC 325 mg Tablet PO (08:30)
[2020-12-11] MEDS: cholecalciferol (vitamin D3) 1,000 unit Tablet 1000 UNIT PO (08:30)
[2020-12-11] MEDS: zinc gluconate 50 mg Tablet PO (08:30)
[2020-12-11] MEDS: TRAMadol 50 mg Tablet PO ×2 (08:32→20:41)
[2020-12-11] MEDS: gabapentin 100 mg Capsule PO ×3 (08:32→20:21)
[2020-12-11] MEDS: cefepime 2,000 MG in sodium chloride 0.9% (plus) 50 ML 100 MG IV ×2 (10:14→22:42)
[2020-12-11] MEDS: vancomycin 1,500 MG/300 ML PIGGYBACK 200 MG IV (11:08)
[2020-12-11 12:05] LABS: Glucose Point of Care 185 mg/dL (70-110)
--- NOTE | 2020-12-11 17:04 | P.PN_ITS ---
Subjective Subjective: Interval history: Patient was seen this morning, she still having wheezing, but her oxygen requirements have decreased to 3 L, she is ambulating without significant symptomatology, no nausea, no vomiting, no chest pain, palpitations Vitals/I&O/Wt Last Vital Signs Temp 96.6 F L 12/11/20 15:29 Pulse 67 12/11/20 16:26 Resp 18 12/11/20 16:17 BP 145/85 12/11/20 15:29 Pulse Ox 96 12/11/20 16:17 12/11/20 12/11/20 12/11/20 06:59 14:59 22:59 Intake Total 530 / 1620 830 / 830 Balance 530 / 1620 830 / 830 Physical Exam Const: COMMON NORMALS: no acute distress and patient oriented x3 Resp: COMMON NORMALS: normal respiratory effort, No retractions and No use of accessory muscles AUSCULTATION: wheezes expiratory wheezes Cardio: COMMON NORMALS: regular rate, regular rhythm, S1 normal heart sound present and S2 normal heart sound present RATE: regular rate RHYTHM: regular rhythm HEART SOUNDS: S1 normal heart sound present and S2 normal heart sound present GI: COMMON NORMALS: Normal to inspection, nondistended, normoactive bowel sounds present, Soft to palpation and non-tender PALPATION: Yes Soft to palpation Extremity: COMMON NORMALS: no pedal edema Neuro: COMMON NORMALS: patient oriented x3 Psych: COMMON NORMALS: mental status grossly normal Data : 12/11/20 02:45 12/11/20 02:45 Micro: Microbiology 12/09/20 18:36 Gram Stain - Final Sputum - Expectorated Sputum Sputum Culture - Preliminary 12/09/20 18:43 Blood Culture - Preliminary Blood NEGATIVE TO DATE 12/09/20 17:00 Blood Culture - Preliminary Blood NEGATIVE TO DATE 12/10/20 04:30 MRSA Culture - Final Nose A&P Assessment and plan (1) Pneumonia due to COVID-19 virus: -Asthma exacerbation secondary COVID-19 pneumonia -Currently with expiratory wheezing persists, can speak full sentences, no sly dence of respiratory distress Plan: -Continue Solu-Medrol 40 every 6 hours -DuoNebs every 4 hours -Budesonide every 12 hours -Vancomycin, cefepime -Vitamin C, zinc, vitamin D - incentive spirometer, flutter valve -Remdesivir -We will consider Actemra based on clinical progress -Follow blood cultures, sputum cultures, urine bacterial antigens -Patient tells me she wants chest compressions, but is unsure if she wants intubation, is still undecided, for now I told her I will note that she is a full code, until I get a answer from her -Lovenox for DVT prophylaxis Elevated BNP, with nonpitting edema, monitor for now Elevated blood sugar, 199, A1c 5.9, monitor blood sugars closely CKD, creatinine 1.4, continue to monitor Non-ST elevation MD, no clinically significant troponin, no significant delta troponin, no chest pain complaints, no acute ST-T wave changes, likely from acute respiratory failure as above Mixed connective tissue disease, hold hydroxychloroquine given risk of QT prolongation with remdesivir Status: Acute (2) Asthma: Status: Acute (3) Anti-EXCHANGE ARCHITECT antibodies present: Status: Acute (4) CKD (chronic kidney disease): Status: Acute (5) MARCELLO positive: Status: Acute (6) Asthma exacerbation: Status: Acute (7) FOUZIA (acute kidney injury): Status: Acute Attestations Medical Necessity Statement*: Requires hospitalization for asthma exacerbation, pneumonia secondary COVID-19 Coding Level of Care Code Acute Counterintelligence Specialist for [facility] Diagnoses Pneumonia due to COVID-19 virus U07.1; J12.82 Asthma J45.909 Anti-EXCHANGE ARCHITECT antibodies present R76.8 CKD (chronic kidney disease) N18.9 MARCELLO positive R76.8 Asthma exacerbation J45.901 FOUZIA (acute kidney injury) N17.9
[2020-12-11 17:12] LABS: Glucose Point of Care 216 mg/dL (70-110)
[2020-12-11] MEDS: remdesivir 100 MG in sodium chloride 0.9% (100 ml) 80 ML IV (17:39)
[2020-12-11] MEDS: zolpidem 5 mg Tablet 10 MG PO (20:21)
[2020-12-11] MEDS: dilTIAZem ER (24HR) 180 mg Capsule PO (20:21)
[2020-12-11] MEDS: enoxaparin 40 mg/0.4 mL Syringe SUBCUT (20:31)
[2020-12-11 20:49] LABS: Glucose Point of Care 167 mg/dL (70-110)
[2020-12-12] VITALS (19 sets, daily range): BP systolic 100–144; BP diastolic 61–83; PULSE 67–82; RESP 16–24; TEMP 36.4–37.1; O2SAT 92–95
[2020-12-12] MEDS: ipratropium-albuterol 3 mL Neb INHALATION ×7 (00:19→21:14)
[2020-12-12 05:33] LABS: Hematocrit 31.7 % (37.0-47.0); Hemoglobin 10.2 g/dL (11.5-15.3); Lymphocytes # 0.7 10^3/uL (0.8-4.8); Lymphocytes % 7.2 %; Mean Corpuscular HGB Conc 32.2 g/dL (30.0-36.0); Mean Corpuscular Volume 93.2 fl (81-99); Mean Platelet Volume 10.2 fL (7.4-10.4); Monocytes # 0.3 10^3/uL (0.2-0.9); Monocytes % 3.5 %; Neutrophils # 8.07 10^3/uL (1.8-7.7); Neutrophils % 88.4 %; Nucleated Red Blood Cells % 0 %; Platelet Count 240 10^3/cmm (130-400); Red Cell Distribution Width 15.3 % (12.1-15.1); White Blood Count 9.1 10^3/uL (4.0-10.0)
[2020-12-12 05:59] LABS: Alanine Aminotransferase 14 U/L (0-33); Albumin Level 3.1 g/dL (3.5-5.2); Alkaline Phosphatase 67 IU/L (35-105); Anion Gap 13.8 (5-19); Aspartate Amino Transferase 21 U/L (0-32); Blood Urea Nitrogen 32 mg/dL (8-23); Calcium 8.1 mg/dL (8.5-10.5); Carbon Dioxide 24 mmol/L (22-29); Chloride 103 mmol/L (98-107); Globulin 2.9 g/dL (1.3-4.6); Glucose 273 mg/dL (65-115); Magnesium 2.4 mg/dL (1.7-2.3); Osmolality Calculated 301 mOsm/kg (285-295); Phosphorus 3.1 mg/dL (2.5-4.5); Potassium 3.8 mmol/L (3.5-5.1); Sodium 137 mmol/L (136-145); Total Bilirubin 0.2 mg/dL (0.15-1.2)
[2020-12-12 06:04] LABS: Procalcitonin 0.06 ng/mL (0-0.5)
[2020-12-12 06:42] LABS: Glucose Point of Care 262 mg/dL (70-110)
[2020-12-12] MEDS: levothyroxine 112 mcg Tablet PO (07:37)
[2020-12-12] MEDS: TRAMadol 50 mg Tablet PO ×2 (07:37→20:06)
[2020-12-12] MEDS: docusate sodium 100 mg Capsule PO ×2 (07:37→16:35)
[2020-12-12] MEDS: gabapentin 100 mg Capsule PO ×3 (07:37→20:06)
[2020-12-12] MEDS: zinc gluconate 50 mg Tablet PO (07:38)
[2020-12-12] MEDS: pantoprazole DR 40 mg Tablet PO ×2 (07:38→16:35)
[2020-12-12] MEDS: ascorbic acid 500 mg Tablet PO ×2 (07:38→16:35)
[2020-12-12] MEDS: ferrous sulfate EC 325 mg Tablet PO (07:38)
[2020-12-12] MEDS: montelukast sodium 10 mg Tablet PO (07:39)
[2020-12-12] MEDS: cholecalciferol (vitamin D3) 1,000 unit Tablet 1000 UNIT PO (07:39)
[2020-12-12] MEDS: losartan 50 mg Tablet PO (07:39)
[2020-12-12 09:03] LABS: ABG PCO2 39.9 mmHg (35-45); ABG PH Result 7.39 (7.35-7.45); Alveolar-Arterial Oxygen Gradi 13.9 mmHg (5-10); Arterial Blood Gas Hematocrit 36.9 % (37-47); Base Excess ABG -0.9 mmol/L (-2.0-2.0); Blood Gas Allen Test Pos; Blood Gas Operator Identificat MONRO; Blood Gas Sample Site Radial, right; Blood Gas Sample Type Arterial; Carboxyhemoglobin 0.4 %THgb (0.4-20.1); HCO3 ABG 24.1 mmol/L (22-26); Ionized Calcium Level - ABG 1.2 mmol/L (1.1-1.4); Methemoglobin 0.7 % (0.4-1.5); Oxygen Device NC; PO2 ABG 72.7 mmHg (80.0-100.0); Potassium Level - ABG 4.1 mmol/L (3.5-5.0)
--- NOTE | 2020-12-12 09:39 | PC.NUTR ---
Nutrition note: Pt reports allergy to fish, and also states she cannot eat nuts to this RD. Will add to dietary information. Recommend add to allergies in EMR as well.
[2020-12-12] MEDS: budesonide 0.5 mg/2 mL Neb INHALATION ×2 (10:14→21:14)
[2020-12-12] MEDS: cefepime 2,000 MG in sodium chloride 0.9% (plus) 50 ML 100 MG IV ×2 (10:24→22:02)
--- NOTE | 2020-12-12 10:47 | PM.PN ---
Subjective Subjective: Interval history: Patient was seen this morning she still actively wheezing, she tells me that when she got up to use the bathroom she felt quite short of breath, she is still on 3 L, no chest pain, no palpitations, she is asking if theophylline is an option for her Vitals/I&O/Wt Last Vital Signs Temp 98.8 F 12/12/20 08:00 Pulse 77 12/12/20 10:15 Resp 24 H 12/12/20 10:08 BP 128/77 12/12/20 08:00 Pulse Ox 92 12/12/20 10:08 12/11/20 12/12/20 12/12/20 22:59 06:59 14:59 Intake Total 320 / 1150 940 / 2090 Output Total 400 / 400 Balance 320 / 1150 540 / 1690 Physical Exam Const: COMMON NORMALS: no acute distress and patient oriented x3 Resp: COMMON NORMALS: normal respiratory effort, No retractions and No use of accessory muscles AUSCULTATION: wheezes Cardio: COMMON NORMALS: regular rate, regular rhythm, S1 normal heart sound present and S2 normal heart sound present RATE: regular rate RHYTHM: regular rhythm HEART SOUNDS: S1 normal heart sound present and S2 normal heart sound present GI: COMMON NORMALS: Normal to inspection, nondistended, normoactive bowel sounds present, Soft to palpation and non-tender PALPATION: Yes Soft to palpation Extremity: COMMON NORMALS: no pedal edema Neuro: COMMON NORMALS: patient oriented x3 Psych: COMMON NORMALS: mental status grossly normal Data : 12/12/20 04:59 12/12/20 04:59 Micro: Microbiology 12/09/20 18:36 Gram Stain - Final Sputum - Expectorated Sputum Sputum Culture - Final A&P Assessment and plan (1) Pneumonia due to COVID-19 virus: -Asthma exacerbation secondary COVID-19 pneumonia -Currently with expiratory wheezing persists, can speak full sentences, no evidence of respiratory distress, did have episode of shortness of breath with Plan: -Continue Solu-Medrol 40 every 8 hours -DuoNebs every 4 hours -Budesonide every 12 hours -Cefepime, discontinue vancomycin as MRSA nares negative -Vitamin C, zinc, vitamin D - incentive spirometer, flutter valve -Remdesivir -We will consider Actemra based on clinical progress -Follow blood cultures, sputum cultures, urine bacterial antigens -Patient tells me she wants chest compressions, but is unsure if she wants intubation, is still undecided, for now I told her I will note that she is a full code, until I get a answer from her -Lovenox for DVT prophylaxis Elevated BNP, with nonpitting edema, given Lasix Elevated blood sugar, 199, A1c 5.9, monitor blood sugars closely CKD, creatinine 1.4, continue to monitor Non-ST elevation HI, no clinically significant troponin, no significant delta troponin, no chest pain complaints, no acute ST-T wave changes, likely from acute respiratory failure as above Mixed connective tissue disease, hold hydroxychloroquine given risk of QT prolongation with remdesivir Status: Acute (2) Asthma: Status: Acute (3) Anti-PARACHUTIST/COMBATANT DIVER QUALIFIED antibodies present: Status: Acute (4) CKD (chronic kidney disease): Status: Acute (5) MARCELLO positive: Status: Acute (6) Asthma exacerbation: Status: Acute (7) FOUZIA (acute kidney injury): Status: Acute Attestations Medical Necessity Statement*: Patient course hospitalization due to asthma exacerbation, secondary COVID-19,, COVID-19 pneumonia Coding Level of Care Code Acute [facility] Diagnoses Pneumonia due to COVID-19 virus U07.1; J12.82 Asthma J45.909 Anti-PARACHUTIST/COMBATANT DIVER QUALIFIED antibodies present R76.8 CKD (chronic kidney disease) N18.9 MARCELLO positive R76.8 Asthma exacerbation J45.901 FOUZIA (acute kidney injury) N17.9
--- NOTE | 2020-12-12 10:59 | P.CONIM_ITS ---
Providers/Reason For Consult Consulting Physician/Specialty*: Gigi Bermeo MD/Pulmonary Critical Care Reason for Consult*: Asthma exacerbation patient with COVID-19 pneumonia Requesting Physician: Kee Dewitt MD Attending Physician: Kee Dewitt MD Primary Care Provider: Chip Savage MD History of Present Illness History of Present Illness Rebecca Olivera is a 70 year old female with PMH asthma (no history of ICU admissions, intubations, no history of exacerbation in last 1 year), next connective tissue disease and lupus on hydroxychloroquine, CKD, gout, hypertension presented to [facility] due to 3-week history of wheezing and shortness of breath. Patient reported seeing her victim witness administrator in [place] recently and was given a tapering dose of steroids. However her symptoms did not improve and still has wheezing, shortness of breath with intermittent fevers. She has extensive history of allergies to several grasses food products and anaphylactic reaction to some of the triggers. And that is the reason she never took Covid vaccination. She denied any history of smoking. In the emergency room she was found to have asthma exacerbation, COVID-19 test positive saturating 95% on 4 L. She was admitted to medical floor. Pulmonary critical care consult requested for persistent wheezing and this episode of exacerbation since admission on 12/09/2020. -Patient seen at bedside saturating 95% on 3 L nasal cannula -Able to complete sentences and have meaningful conversation with intact mentation -Did not appear to be in respiratory distress but has persistent wheeze -Reported it has never been so bad; and states he uses ProAir, albuterol inhaler, Qvar inhaler, Advair inhaler and takes Singulair -Other labs and imaging reviewed Review of Systems General: Reports: 10 or more systems reviewed and unremarkable except in HPI and below Meds/Allergies Home Medications and Allergies Home Medications Medication Instructions Recorded Confirmed Last Taken Type azelastine 137 mcg (0.1 %) nasal 1 spray INTRANASAL BID 03/29/19 12/10/20 Unknown History spray aerosol fluticasone propionate 50 1 spray INTRANASAL BID 03/29/19 12/10/20 Unknown History mcg/actuation nasal spray,suspension omeprazole 20 mg capsule,delayed 20 mg PO BEDTIME 03/29/19 12/10/20 Unknown History release albuterol sulfate 90 mcg/actuation 2 puff INHALATION Q6H PRN 12/24/19 12/10/20 Unknown History aerosol inhaler allopurinol 100 mg tablet 100 mg PO QAM 12/24/19 12/10/20 12/09/20 History cyclobenzaprine 5 mg tablet 5 mg PO . DIRECTED PRN tab 12/24/19 12/10/20 Unknown History diltiazem HCl 240 mg capsule,24 240 mg PO QAM 12/24/19 12/10/20 12/09/20 History hr,extended release gabapentin 100 mg capsule See Rx Instructions .ROUTE .COMPLEX 12/24/19 12/10/20 Unknown History ipratropium bromide 21 mcg (0.03 2 spray INTRANASAL BID 12/24/19 12/10/20 Unknown History %) nasal spray levothyroxine 112 mcg tablet 112 mcg PO QAM 12/24/19 12/10/20 12/09/20 History losartan 50 mg tablet 50 mg PO DAILY 12/24/19 12/10/20 Unknown History ropinirole 1 mg tablet 1 mg PO BEDTIME 12/24/19 12/10/20 Unknown History tiotropium bromide 18 mcg capsule 1 cap INHALATION DAILY 12/24/19 12/10/20 Unknown History with inhalation device tramadol 50 mg tablet 50 mg PO BID 12/24/19 12/10/20 Unknown History triamcinolone acetonide 0.1 % 1 applic TOPICAL TID 12/24/19 12/10/20 Unknown History topical cream zolpidem 10 mg tablet 10 mg PO BEDTIME PRN tab 12/24/19 12/10/20 Unknown History bepotastine besilate 1.5 % eye 1 drp OPHTHALMIC (EYE) BID PRN 11/25/20 12/10/20 Unknown History drops ferrous sulfate 325 mg (65 mg 325 mg PO DAILY 11/25/20 12/10/20 Unknown History iron) tablet dmjbchpfsmq-rqz-dczzwyka-vit 2 cap PO DAILY 11/25/20 12/10/20 Unknown History C-Mn-hrb21 500 mg-333 mg-5 mg capsule montelukast 10 mg tablet 10 mg PO BEDTIME 11/25/20 12/10/20 Unknown History ewwqrlmh-cth-CZ 200 mcg-vit K 15 2 tab PO DAILY 11/25/20 12/10/20 Unknown History mcg-lycope 150 uov-qnbkcf-chzl tablet multivitamin with minerals 1 tab PO DAILY 11/25/20 12/10/20 Unknown History neomycin-polymyxin B-dexameth eye 1 drp OPHTHALMIC (EYE) . 11/25/20 12/10/20 Unknown History drops,suspension DIRECTED PRN potassium chloride 10 mEq 10 meq PO BID 11/25/20 12/10/20 Unknown History capsule,extended release hydroxychloroquine 200 mg tablet 200 mg PO BID #180 tab 12/09/20 12/10/20 Unknown Rx albuterol sulfate 2.5 mg INHALATION Q6H PRN 12/10/20 12/10/20 Unknown History atorvastatin 40 mg PO DAILY 12/10/20 12/10/20 12/09/20 History beclomethasone dipropionate [Qvar 1 inh INHALATION BID 12/10/20 12/10/20 Unknown History RediHaler] cetirizine [Zyrtec] 10 mg PO DAILY 12/10/20 12/10/20 Unknown History diltiazem HCl [Tiadylt ER] 180 mg PO BEDTIME 12/10/20 12/10/20 Unknown History erythromycin 1 applic OPHTHALMIC (EYE) BEDTIME 12/10/20 12/10/20 Unknown History furosemide 40 mg PO BID 12/10/20 12/10/20 Unknown History prednisone See Rx Instructions .ROUTE .COMPLEX 12/10/20 12/10/20 12/09/20 History 3 TABS triamcinolone acetonide 1 applic TOPICAL DAILY 12/10/20 12/10/20 Unknown History Allergies Allergy/AdvReac Type Severity Reaction Status Date / Time No Known Allergies Allergy Verified 12/10/20 10:26 Current Medications Current Medications Generic Name Dose Route Start Last Admin Trade Name Freq PRN Reason Stop Dose Admin Albuterol/Ipratropium 3 ml 12/09/20 20:00 12/12/20 09:23 Ipratropium-Albuterol 3 Ml Neb INHALATION 3 ml Q4H.RESPIRATORY FERNANDA Administration Albuterol/Ipratropium 3 ml 12/09/20 20:49 12/12/20 10:14 Ipratropium-Albuterol 3 Ml Neb INHALATION 3 ml Q6H PRN Administration SHORTNESS OF BREATH Ascorbic Acid 500 mg 12/10/20 09:00 12/12/20 07:38 Ascorbic Acid 500 Mg Tablet PO 500 mg BID FERNANDA Administration Budesonide 0.5 mg 12/12/20 09:10 12/12/20 10:14 Budesonide 0.5 Mg/2 Ml Neb INHALATION 0.5 mg BID.RESPIRATORY FERNANDA Administration Diltiazem HCl 180 mg 12/10/20 21:00 12/11/20 20:21 Diltiazem Er (24hr) 180 Mg Capsule PO 180 mg BEDTIME FERNANDA Administration Docusate Sodium 100 mg 12/10/20 09:00 12/12/20 07:37 Docusate Sodium 100 Mg Capsule PO 100 mg BID FERNANDA Administration Enoxaparin Sodium 40 mg 12/09/20 21:30 12/11/20 20:31 Enoxaparin 40 Mg/0.4 Ml Syringe SUBCUT 40 mg Q24H FERNANDA Administration Ferrous Sulfate 325 mg 12/10/20 09:00 12/12/20 07:38 Ferrous Sulfate Ec 325 Mg Tablet PO 325 mg DAILY FERNANDA Administration Gabapentin 100 mg 12/09/20 21:00 12/12/20 07:37 Gabapentin 100 Mg Capsule PO 100 mg TID FERNANDA Administration Cefepime HCl 2,000 mg/ Sodium 50 mls @ 100 mls/hr 12/09/20 22:00 12/12/20 10:57 Chloride IV Infused Q12H FERNANDA Infusion Protocol Remdesivir 100 mg/ Sodium 80 mls @ 100 mls/hr 12/10/20 18:00 12/11/20 18:40 Chloride IV 12/13/20 18:47 Infused Q24H FERNANDA Infusion Levothyroxine Sodium 112 mcg 12/10/20 09:00 12/12/20 07:37 Levothyroxine 112 Mcg Tablet PO 112 mcg DAILY FERNANDA Administration Losartan Potassium 50 mg 12/10/20 09:00 12/12/20 07:39 Losartan 50 Mg Tablet PO 50 mg DAILY FERNANDA Administration Montelukast Sodium 10 mg 12/10/20 09:00 12/12/20 07:39 Montelukast Sodium 10 Mg Tablet PO 10 mg DAILY FERNANDA Administration Pantoprazole Sodium 40 mg 12/10/20 09:00 12/12/20 07:[address] 40 Mg Tablet PO 40 mg BID FERNANDA Administration Ropinirole HCl 1 mg 12/11/20 22:45 12/11/20 23:14 Ropinirole 1 Mg Tablet PO 1 mg BEDTIME FERNANDA Administration Tramadol HCl 50 mg 12/09/20 20:49 12/12/20 07:37 Tramadol 50 Mg Tablet PO 50 mg BID PRN Administration PAIN Vitamin D 1,000 unit 12/10/20 09:00 12/12/20 07:39 Cholecalciferol (Vitamin D3) 1,000 Unit Tablet PO 1,000 unit DAILY FERNANDA Administration Zinc Gluconate 50 mg 12/10/20 09:00 12/12/20 07:38 Zinc Gluconate 50 Mg Tablet PO 50 mg DAILY FERNANDA Administration Zolpidem Tartrate 10 mg 12/09/20 21:00 12/11/20 20:21 Zolpidem 5 Mg Tablet PO 10 mg BEDTIME FERNANDA Administration PFSH Acute PFSH: Medical History (Updated 12/13/20 @ 10:39 by Gigi Bermeo MD) Arthritis CKD (chronic kidney disease) Gout Hypertension Hypothyroidism Lupus Surgical History H/O abdominal surgery (~2004) H/O tubal ligation (~1971) Hx of bilateral oophorectomy (~2003) Hx of eye surgery (~2014) Hx of hysterectomy (~1983) Family History Grandfather CAD (coronary artery disease) Social History Smoking and tobacco status: never smoked Alcohol intake: never History of recent travel: No Vitals/I&O/Wt Last Vital Signs Temp 98.8 F 12/12/20 08:00 Pulse 77 12/12/20 10:15 Resp 24 H 12/12/20 10:08 BP 128/77 12/12/20 08:00 Pulse Ox 92 12/12/20 10:08 12/11/20 12/12/20 12/12/20 22:59 06:59 14:59 Intake Total 320 / 1150 940 / 2090 50 / 50 Output Total 400 / 400 Balance 320 / 1150 540 / 1690 50 / 50 Physical Exam Narrative: EXAM NARRATIVE: General: alert, NAD HEENT: conj clear, EOMI, PERRL, mmm, Neck: supple, no meningismus Heme: no cervical LAP Pulmonary: Bilateral air entry bilateral diffuse wheeze, no subcostal or intercostal retractions noted Cardiovascular: rrr, nl s1s2, no mrg Abdomen: soft, nt, nd, no r/g, bs+ Extremities: pulses +, no edema, no c/c : no CVA tenderness Skin: intact, no rash MSK: no back or neck pain Neurologic: grossly intact Data Labs: Other Labs: Laboratory Results WBC 9.1 10^3/uL (4.0- 10.0) 12/12/20 04:59 RBC 3.40 10^6/uL (4.1 -5.3) L 12/12/20 04:59 Hgb 10.2 g/dL (11.5-1 5.3) L 12/12/20 04:59 Hct 31.7 % (37.0-47.0 ) L 12/12/20 04:59 MCV 93.2 fl (81-99) 12/12/20 04:59 MCH 30.0 pg (28.0-34. 0) 12/12/20 04:59 MCHC 32.2 g/dL (30.0-3 6.0) 12/12/20 04:59 RDW 15.3 % (12.1-15.1 ) H 12/12/20 04:59 Plt Count 240 10^3/cmm (130 -400) 12/12/20 04:59 MPV 10.2 fL (7.4-10.4 ) 12/12/20 04:59 Neut % (Auto) 88.4 % 12/12/20 04:59 Lymph % (Auto) 7.2 % 12/12/20 04:59 [place]igo % (Auto) 3.5 % 12/12/20 04:59 Eos % (Auto) 0.0 % 12/12/20 04:59 Baso % (Auto) 0.0 % 12/12/20 04:59 Neut # (Auto) 8.07 10^3/uL (1.8 -7.7) H 12/12/20 04:59 Lymph # (Auto) 0.7 10^3/uL (0.8- 4.8) L 12/12/20 04:59 [place]igo # (Auto) 0.3 10^3/uL (0.2- 0.9) 12/12/20 04:59 Eos # (Auto) 0.0 10^3/uL (0.0- 0.8) 12/12/20 04:59 Baso # (Auto) 0.0 10^3/uL (0.0- 0.1) 12/12/20 04:59 Nucleated RBC % (a uto) 0 % 12/12/20 04:59 Nucleated RBCs # 0.0 /100WBC 12/12/20 04:59 D-Dimer 0.95 ug/mIFEU (0- 0.59) H 12/09/20 16:50 Specimen Type Arterial 12/12/20 08:55 Sample Site Radial, right 12/12/20 08:55 ABG pH 7.39 (7.35-7.45) 12/12/20 08:55 ABG pCO2 39.9 mmHg (35-45) 12/12/20 08:55 ABG pO2 72.7 mmHg (80.0-1 00.0) L 12/12/20 08:55 ABG HCO3 24.1 mmol/L (22-2 6) 12/12/20 08:55 ABG O2 Saturation 95.0 12/12/20 08:55 ABG Base Excess -0.9 mmol/L (-2.0 -2.0) 12/12/20 08:55 Jacques Test Pos 12/12/20 08:55 A-a O2 Gradient 13.9 mmHg (5-10) H 12/12/20 08:55 Hematocrit 36.9 % (37-47) L 12/12/20 08:55 Hgb O2 Saturation 94.0 % (95-100) L 12/12/20 08:55 Carboxyhemoglobin 0.4 %THgb (0.4-20 .1) 12/12/20 08:55 Methemoglobin 0.7 % (0.4-1.5) 12/12/20 08:55 Total Hemoglobin 12.0 g/dL (12-16) 12/12/20 08:55 Sodium 141.0 mmol/L (131 -143) 12/12/20 08:55 Potassium 4.1 mmol/L (3.5-5 .0) 12/12/20 08:55 Glucose 206.0 mg/dL (70-1 15) H 12/12/20 08:55 Ionized Calcium 1.2 mmol/L (1.1-1 .4) 12/12/20 08:55 O2 Delivery Device Nc 12/12/20 08:55 O2 Liters/Min 3.0 % 12/12/20 08:55 FiO2 32.0 % 12/12/20 08:55 Bonded Strand Operator ID Veronique 12/12/20 08:55 Sodium 137 mmol/L (136-1 45) 12/12/20 04:59 Potassium 3.8 mmol/L (3.5-5 .1) 12/12/20 04:59 Chloride 103 mmol/L (98-10 7) 12/12/20 04:59 Carbon Dioxide 24 mmol/L (22-29) 12/12/20 04:59 Anion Gap 13.8 (5-19) 12/12/20 04:59 BUN 32 mg/dL (8-23) H 12/12/20 04:59 Creatinine 1.2 mg/dL (0.5-0. 9) H 12/12/20 04:59 GFR Calculation Not Reportable 12/12/20 04:59 Glucose 273 mg/dL (65-115 ) H 12/12/20 04:59 POC Glucose 207 mg/dL (70-110 ) H 12/12/20 20:58 Estimat Average Gl ucose 123 12/10/20 01:33 Hemoglobin A1c 5.9 % (4.0-6.0) 12/10/20 01:33 Calculated Osmolal ity 301 mOsm/kg (285- 295) H 12/12/20 04:59 Lactic Acid 0.7 mmol/L (0.5-2 .2) 12/09/20 16:50 Calcium 8.1 mg/dL (8.5-10 .5) L 12/12/20 04:59 Phosphorus 3.1 mg/dL (2.5-4. 5) 12/12/20 04:59 Magnesium 2.4 mg/dL (1.7-2. 3) H 12/12/20 04:59 Total Bilirubin 0.2 mg/dL (0.15-1 .2) 12/12/20 04:59 AST 21 U/L (0-32) 12/12/20 04:59 ALT 14 U/L (0-33) 12/12/20 04:59 Alkaline Phosphata se 67 IU/L (35-105) 12/12/20 04:59 Troponin T Baselin e 17 ng/L (0-10) H 12/09/20 16:50 Troponin T 120 Min qagan tayag[place] 14.83 ng/L (0-10) H 12/09/20 21:16 Delta Troponin T -2.17 ABS# (0-10) L 12/09/20 21:16 Troponin T Hi Sens 6Hr 12.60 ng/L (0-10) H 12/10/20 01:33 Troponin T Hi Sens 6Hr Delta -2.23 ng/L (0-12) L 12/10/20 01:33 C-Reactive Protein 42.4 mg/L (0.0-4. 9) H 12/09/20 16:50 NT-Pro-B Natriuret Pep 1821 pg/mL (0-125 ) H 12/10/20 01:33 Total Protein 6.0 g/dL (6.6-8.7 ) L 12/12/20 04:59 Albumin 3.1 g/dL (3.5-5.2 ) L 12/12/20 04:59 Globulin 2.9 g/dL (1.3-4.6 ) 12/12/20 04:59 Triglycerides 52 mg/dL (0-150) 12/10/20 01:33 Cholesterol 107 mg/dL (0-200) 12/10/20 01:33 LDL Cholesterol, C alc 41 mg/dL (50-129) L 12/10/20 01:33 HDL Cholesterol 56 mg/dL (60-100) L 12/10/20 01:33 LDL/HDL Ratio 0.73 RATIO (0.00- 3.22) 12/10/20 01:33 Cholesterol/HDL Ra ricardo 1.91 mg/dL (0.0-4 .40) 12/10/20 01:33 Procalcitonin 0.06 ng/mL (0-0.5 ) 12/12/20 04:59 TSH 2.03 uIU/mL (0.27 -4.20) 12/10/20 01:33 Nasal/Oral COVID-1 9 PCR Detected H 12/09/20 17:00 SARS-CoV-2 Ag (Rap id) Positive (Negati ve) H 12/09/20 17:00 Impressions Chest X-Ray 12/09/20 16:46 IMPRESSION: Bilateral lower lung opacities suggest infection or pulmonary edema. Micro: Micro: Microbiology 12/09/20 18:36 Gram Stain - Final Sputum - Expector ated Sputum Sputum Culture - F inal A&P Assessment and plan (1) Asthma exacerbation: Status: Acute Qualifiers: Asthma severity: severe Asthma persistence: persistent Qualified Code(s): J45.51 - Severe persistent asthma with (acute) exacerbation (2) Pneumonia due to COVID-19 virus: Status: Acute (3) MCTD (mixed connective tissue disease): Status: Acute (4) OFUZIA (acute kidney injury): Status: Acute (5) CKD (chronic kidney disease): Status: Acute Qualifiers: Chronic kidney disease stage: unspecified stage Qualified Code(s): N18.9 - Chronic kidney disease, unspecified (6) Lupus: Status: Acute (7) Hypothyroidism: Status: Acute Qualifiers: Hypothyroidism type: unspecified Qualified Code(s): E03.9 - Hypothyroidism, unspecified #COVID-19 + 12/09/2020 #Asthma exacerbation in patient with history of asthma #Reported allergies to several environmental triggers including grasses, animals, foods #History of MCTD and lupus-on hydroxychloroquine #FOUZIA on CKD #Hypothyroidism -Examination reveals significant diffuse wheeze-but patient is able to communicate without difficulty and is not using her accessory muscles -Maintaining saturations greater than 93% on 3 L nasal cannula -Continue Solu-Medrol 40 every 8 and taper based on clinical response -Continue DuoNeb nebulization every 4 hours and Pulmicort twice daily and Singulair 10 mg daily -Recommended to give IV magnesium sulfate -MRSA nares negative-discontinue vancomycin; Also discontinue cefepime and start on Levaquin QTC is normal or doxycycline -Continue incentive spirometer and flutter valve -Continue remdesivir 5-day protocol -If patient were to clinically deteriorate with increasing CRP-can give 1 dose Actemra -BNP 1943, please obtain echo-Lasix 40 mg as needed to keep fluid balance net negative - Cardizem 180 p.o. at bedtime/losartan 50 mg p.o. daily -Start Precedex if patient is anxious -Continue Lovenox for DVT prophylaxis -Creatinine 1.1 patient with CKD-continue to monitor NICKI and electrolytes closely -Moderately controlled sugars secondary to steroids, A1c 5.9-monitor blood sugars closely -Levothyroxine 112 MCG p.o. daily for hypothyroidism -Hypothermic -Continue regular diet - GI prophylaxis on PPI -Currently full code' -Patient indecisive about intubation -Patient needs continuous IV steroid, scheduled nebulizations for few more days to recover from asthma triggered by COVID-19 pneumonia, she looks like a slow responder. Meanwhile please make sure patient is not fluid overloaded and obtain a CV echo to assess her LV function and cardiac monitoring. Also patient is at risk for rapid clinical deterioration given her advanced age and multiple comorbidities-needs close respiratory monitoring and possible intubation. Medical condition updated to the patient. Recommendations conveyed to hospitalist, RN, RT taking care of the patient Consult Attestations Medical Necessity Statement: Severe asthma exacerbation currently on IV steroids, scheduled nebulizations and COVID-19 +3 L nasal cannula saturating 93% Time Spent in Patient Care: Greater than 35 minutes (>than 50% of time spent in counselling and/or direct pt care on unit) . Critical Care Time: The high probability of a clinically significant, sudden or life threatening deterioration of the patient's [pulmonary, cardiac, endocrine] system(s) required my full and direct attention, intervention and personal management. The critical care time is as shown. This time is in addition to time spent performing any reported procedures but includes the following: [x] Data and vital sign review and interpretation [x] Patient assessment, examination and intervention [x] Documentation [x] Medication orders and management Critical Care Time (min): 45 Coding Level of Care Code New Pt Acute Director Of Automation for Chg Fwd Patient Type New History Comprehensive Exam Comprehensive Medical Decision Making High Complexity Diagnoses Asthma exacerbation J45.51 Asthma severity: severe Asthma persistence: persistent Pneumonia due to COVID-19 virus U07.1; J12.82 MCTD (mixed connective tissue disease) M35.1 FOUZIA (acute kidney injury) N17.9 CKD (chronic kidney disease) N18.9 Chronic kidney disease stage: unspecified stage Lupus M32.9 Hypothyroidism E03.9 Hypothyroidism type: unspecified Time Spent (min) 45
[2020-12-12 12:13] LABS: Glucose Point of Care 199 mg/dL (70-110)
--- NOTE | 2020-12-12 14:24 | PC.CHAP ---
Pastoral Care Encounter/Spiritual Assessment Type of Contact [] Declined metal furniture repairer visit [] Patient/Family/Request visit [] Outpatient visit [xx] Follow-up visit [] Physician referral [] Code/Alert [] Routine visit [] Staff referral [] Actively dying [] Patient sleeping [] Family support [] [] Out of room [] Palliative care [] [] Receiving care in room [] Pre-surgical visit [] Trauma [] Long length of stay [] ICU visit [xx] Other: ISOLATION Relational/Emotional Strength [] Patient feels connected with others/family/visitors/staff [] Distress [] Loneliness/isolation [] Abandonment Spirituality of Patient [] Person of Namita [] Attends Congregational of their Namita [] Believes in Prayer [] Reads Bible or Sabianism materials [] There are Spiritual issues to be addressed [employer] Interventions [] Prayer [] Active listening [] Non-anxious presence [] Spiritual/emotional support [] Crisis/trauma care [] Spiritual counseling [] Bereavement support [] Provided bereavement packet [] Provided Bible/devotional materials [] Provided toy/stuffed animal, coloring book to patient or family member [] Provided Communion [] Anointing/Lancing [] Salvation [] Completed spiritual assessment [] Other: Impact on Illness or Injury [] Angry [] Fearful [] Anxious [] Often cries [] Exhaustion [] Unable to work [] Unable to attend yazidi [] Unable to walk/stand [] Unable to read [] Unable to drive [] Unable to eat/drink [] Unable to sleep [] Unable to be with family [] Patient intubated [] Other: Summary Patient has been placed in isolation Time spent with patient
--- NOTE | 2020-12-12 15:21 | PC.SOCIAL ---
IMM Update Page 2 IMM updated and reviewed. Initialed, timed and dated and copy placed in chart.
[2020-12-12] MEDS: magnesium sulfate premix 2 GM/50 ML PIGGYBACK IV (15:23)
[2020-12-12] MEDS: remdesivir 100 MG in sodium chloride 0.9% (100 ml) 80 ML IV (16:36)
[2020-12-12 17:41] LABS: Glucose Point of Care 235 mg/dL (70-110)
[2020-12-12] MEDS: zolpidem 5 mg Tablet 10 MG PO (20:06)
[2020-12-12] MEDS: ropinirole 1 mg Tablet PO (20:07)
[2020-12-12] MEDS: enoxaparin 40 mg/0.4 mL Syringe SUBCUT (20:07)
[2020-12-12] MEDS: dilTIAZem ER (24HR) 180 mg Capsule PO (20:07)
[2020-12-12 21:10] LABS: Glucose Point of Care 207 mg/dL (70-110)
[2020-12-12 23:11] LABS: Vancomycin Trough 9.4 ug/mL (10-15)
[2020-12-13] VITALS (21 sets, daily range): BP systolic 131–149; BP diastolic 67–82; PULSE 75–88; RESP 16–24; TEMP 36.6–37.1; O2SAT 92–95
[2020-12-13] MEDS: ipratropium-albuterol 3 mL Neb INHALATION ×7 (00:35→23:43)
[2020-12-13 06:26] LABS: Glucose Point of Care 260 mg/dL (70-110)
[2020-12-13 06:29] LABS: Hematocrit 33.3 % (37.0-47.0); Hemoglobin 10.5 g/dL (11.5-15.3); Lymphocytes # 0.7 10^3/uL (0.8-4.8); Lymphocytes % 9.2 %; Mean Corpuscular HGB Conc 31.5 g/dL (30.0-36.0); Mean Corpuscular Hemoglobin 29.7 pg (28.0-34.0); Mean Corpuscular Volume 94.1 fl (81-99); Mean Platelet Volume 10.1 fL (7.4-10.4); Monocytes # 0.4 10^3/uL (0.2-0.9); Monocytes % 5.4 %; Neutrophils # 6.09 10^3/uL (1.8-7.7); Neutrophils % 83.6 %; Nucleated Red Blood Cells % 0 %; Platelet Count 273 10^3/cmm (130-400); Red Blood Count 3.54 10^6/uL (4.1-5.3); Red Cell Distribution Width 15.4 % (12.1-15.1); White Blood Count 7.3 10^3/uL (4.0-10.0)
[2020-12-13 06:52] LABS: Procalcitonin 0.05 ng/mL (0-0.5)
[2020-12-13 06:57] LABS: Alanine Aminotransferase 16 U/L (0-33); Albumin Level 3.3 g/dL (3.5-5.2); Alkaline Phosphatase 67 IU/L (35-105); Anion Gap 10.6 (5-19); Aspartate Amino Transferase 20 U/L (0-32); Blood Urea Nitrogen 32 mg/dL (8-23); C Reactive Protein 16.1 mg/L (0.0-4.9); Calcium 8.2 mg/dL (8.5-10.5); Carbon Dioxide 26 mmol/L (22-29); Chloride 102 mmol/L (98-107); Globulin 2.4 g/dL (1.3-4.6); Glucose 270 mg/dL (65-115); Magnesium 2.8 mg/dL (1.7-2.3); NT Pro B Type Natriuretic Pept 1943 pg/mL (0-125); Osmolality Calculated 294 mOsm/kg (285-295); Phosphorus 2.9 mg/dL (2.5-4.5); Potassium 4.6 mmol/L (3.5-5.1); Sodium 134 mmol/L (136-145); Total Bilirubin 0.2 mg/dL (0.15-1.2); Total Protein 5.7 g/dL (6.6-8.7)
--- NOTE | 2020-12-13 07:00 | XRR_ITS ---
PROCEDURE INFORMATION: Exam: XR Chest Exam date and time: 12/13/2020 7:00 AM Age: 70 years old Clinical indication: Shortness of breath; Additional info: SOB TECHNIQUE: Imaging protocol: XR of the chest. Views: 1 view. COMPARISON: CR (CHEST, ) 12/09/2020 5:02 PM FINDINGS: Lungs: Bilateral interstitial pulmonary infiltrates have become more prominent than on previous study which are consistent with worsening interstitial viral pneumonia. Pleural spaces: Unremarkable. No pleural effusion. No pneumothorax. Heart/Mediastinum: Unremarkable. No cardiomegaly. Bones/joints: Unremarkable. XR/XR chest 1V portable [id number] IMPRESSION: Worsening bilateral interstitial pneumonia.
[2020-12-13] MEDS: budesonide 0.5 mg/2 mL Neb INHALATION ×2 (08:02→19:54)
[2020-12-13] MEDS: pantoprazole DR 40 mg Tablet PO ×2 (08:44→17:08)
[2020-12-13] MEDS: gabapentin 100 mg Capsule PO ×3 (08:45→20:39)
[2020-12-13] MEDS: ferrous sulfate EC 325 mg Tablet PO (08:45)
[2020-12-13] MEDS: zinc gluconate 50 mg Tablet PO (08:45)
[2020-12-13] MEDS: levothyroxine 112 mcg Tablet PO (08:45)
[2020-12-13] MEDS: cholecalciferol (vitamin D3) 1,000 unit Tablet 1000 UNIT PO (08:45)
[2020-12-13] MEDS: montelukast sodium 10 mg Tablet PO (08:45)
[2020-12-13] MEDS: docusate sodium 100 mg Capsule PO ×2 (08:45→17:08)
[2020-12-13] MEDS: ascorbic acid 500 mg Tablet PO ×2 (08:45→17:08)
[2020-12-13] MEDS: losartan 50 mg Tablet PO (08:53)
[2020-12-13] MEDS: TRAMadol 50 mg Tablet PO ×2 (10:04→20:40)
[2020-12-13] MEDS: cefepime 2,000 MG in sodium chloride 0.9% (plus) 50 ML 100 MG IV (10:08)
[2020-12-13 11:20] LABS: Glucose Point of Care 253 mg/dL (70-110)
--- NOTE | 2020-12-13 11:41 | USCV_ITS ---
Joselin Rebecca Age: 70 Gender: F : 1950 Exam Date: 12/13/2020 13:05 Ordering Phys: Kee Dewitt MD Technologist: Ann Rabago Exam Location: [facility] – [place] Indication: SOB BP: 142 / 67 HR: 84 Rhythm: Sinus Technical Quality: Technically difficult study MEASUREMENTS (Male / Female) Normal Values 2D ECHO LV Diastolic Diameter PLAX 4.8 cm 4.2 - 5.9 / 3.9 - 5.3 cm LV Systolic Diameter PLAX 3.4 cm LV Chamber Size 4.8 cm IVS Diastolic Thickness 1.4 cm 0.6 - 1.0 / 0.6 - 0.9 cm IVS Systolic Thickness 1.8 cm LVPW Diastolic Thickness 1.0 cm 0.6 - 1.0 / 0.6 - 0.9 cm LVPW Systolic Thickness 1.5 cm RV Chamber Size 3.0 cm LVOT Diameter 2.0 cm LV Ejection Fraction 2D Teich 58.2 % LV Ejection Fraction MOD 2C 53.9 % LV Ejection Fraction 2C AL 59.0 % LA Diameter 3.5 cm LA Width 3.1 cm LA Height 5.6 cm RA Width 2.6 cm RA Height 4.2 cm Aorta at Sinotubular Diameter 2.6 cm M-MODE LV Diastolic Diameter MM 5.8 cm 4.2 - 5.9 / 3.9 - 5.3 cm LV Systolic Diameter MM 4.2 cm LV Ejection Fraction MM Teich 52.5 % IVS Diastolic Thickness MM 1.3 cm 0.6 - 1.0 / 0.6 - 0.9 cm IVS Systolic Thickness MM 1.6 cm LVPW Diastolic Thickness MM 1.4 cm 0.6 - 1.0 / 0.6 - 0.9 cm LVPW Systolic Thickness MM 1.8 cm RV Diastolic Diameter MM 0.8 cm Aortic Annulus Diameter 3.0 cm LA Ao Ratio MM 1.3 MV E Point Septal Separation 1.1 cm DOPPLER AV Peak Velocity 252.0 cm/s LVOT Peak Velocity 108.0 cm/s AV Area Cont Eq vti 1.6 cm squared AV Area Cont Eq pk 1.4 cm squared MV Area PHT 3.9 cm squared Mitral E to A Ratio 0.9 MV E' Velocity 70.4 cm/s Mitral E to MV E' Ratio 10.0 Mitral E to LV E' Lateral Ratio 9.9 Mitral E to LV E' Septal Ratio 10.3 TR Peak Velocity 190.3 cm/s TR Peak Gradient 14.5 mmHg Right Atrial Pressure 3.0 mmHg Pulmonary Artery Systolic Pressu 17.5 mmHg FINDINGS Left Ventricle Normal left ventricular size. LV systolic function is normal with EF of 55-60%. No regional wall motion abnormalities. Grade 1 diastolic dysfunction. Right Ventricle The right ventricle is normal in size and function. Right Atrium The right atrium is normal in size. Left Atrium The left atrium is normal in size. Mitral Valve Structurally normal mitral valve without significant stenosis or prolapse. There is trace mitral regurgitation. Aortic Valve Not well visualized. Mild aortic stenosis is noted with mean gradient across the valve of 12mmHg and aortic valve area 1.6 cm squared. There is no aortic regurgitation. Tricuspid Valve Structurally normal tricuspid valve without significant stenosis or regurgitation. Insufficient TR jet to calculate RVSP. Pulmonic Valve Structurally normal pulmonic valve without significant stenosis. There is no pulmonic regurgitation. Pericardium Normal pericardium without effusion. Aorta Normal ascending aorta dimension. CONCLUSIONS LV systolic function is normal with EF 55 to 60%. Grade 1 diastolic dysfunction. Trace mitral regurgitation. Mild aortic stenosis is noted with mean gradient across the valve of 12 mmHg and aortic valve area of 1.6 cm squared. Compared to echocardiogram from 09/17/2020, no significant changes are seen. Luciano Jensen MD (Electronically Signed) Final Date: 14 December 2020 11:35 S
[2020-12-13] MEDS: FUROsemide 10 mg/mL SDV 2mL 20 MG IVP (11:58)
--- NOTE | 2020-12-13 13:39 | P.PN_ITS ---
Subjective Subjective: Interval history: Patient was seen this morning, her wheezing has improved, but persist to some degree, she tells me that she does have shortness of breath with exertion but she feels that she is getting better overall, she is really worried about her , he continues to have fever and feels weak, he is at home by himself also has Covid, and they don't have any family or friends nearby, [place], but he continually checks up on her Vitals/I&O/Wt Last Vital Signs Temp 98.0 F 12/13/20 11:46 Pulse 80 12/13/20 11:46 Resp 24 H 12/13/20 11:46 BP 140/82 12/13/20 11:46 Pulse Ox 94 12/13/20 11:46 12/12/20 12/13/20 12/13/20 22:59 06:59 14:59 Intake Total 540 / 950 600 / 1550 290 / 290 Balance 540 / 950 600 / 1550 290 / 290 Physical Exam Const: COMMON NORMALS: no acute distress and patient oriented x3 Resp: COMMON NORMALS: normal respiratory effort, No retractions and No use of accessory muscles AUSCULTATION: wheezes expiratory wheezes Cardio: COMMON NORMALS: regular rate, regular rhythm, S1 normal heart sound present and S2 normal heart sound present RATE: regular rate RHYTHM: regular rhythm HEART SOUNDS: S1 normal heart sound present and S2 normal heart sound present GI: COMMON NORMALS: Normal to inspection, nondistended, normoactive bowel sounds present, Soft to palpation and No hepatosplenomegaly present PALPATION: Yes Soft to palpation and Yes No hepatosplenomegaly present Extremity: COMMON NORMALS: no pedal edema NARRATIVE EXTREMITY EXAM: Nonpitting edema Neuro: COMMON NORMALS: patient oriented x3 Psych: COMMON NORMALS: mental status grossly normal Data : 12/13/20 05:52 12/13/20 05:52 Micro: Microbiology 12/09/20 18:36 Gram Stain - Final Sputum - Expectorated Sputum Sputum Culture - Final A&P Assessment and plan (1) Pneumonia due to COVID-19 virus: -Asthma exacerbation secondary COVID-19 pneumonia -Currently with expiratory wheezing persists, can speak full sentences, no evidence of respiratory distress, did have episode of shortness of breath with Plan: -Continue Solu-Medrol 40 every 8 hours -DuoNebs every 4 hours -Budesonide every 12 hours -De-escalate to doxycycline -Vitamin C, zinc, vitamin D - incentive spirometer, flutter valve -Remdesivir -Did not clinically respond to doses of mag sulfate -Elevated BNP, will do a trial of Lasix, cardiac echo -We will consider Actemra based on clinical progress -Follow blood cultures, sputum cultures, urine bacterial antigens -Full code -Lovenox for DVT prophylaxis Elevated blood sugar, A1c 5.9, monitor blood sugars closely CKD, creatinine 1.1, continue to monitor Non-ST elevation [place], no clinically significant troponin, no significant delta troponin, no chest pain complaints, no acute ST-T wave changes, likely from acute respiratory failure as above Mixed connective tissue disease, hold hydroxychloroquine given risk of QT prolongation with remdesivir Status: Acute (2) Asthma: Status: Acute (3) Anti-PERSONAL LINES ADVISOR antibodies present: Status: Acute (4) CKD (chronic kidney disease): Status: Acute Qualifiers: Chronic kidney disease stage: unspecified stage Qualified Code(s): N18.9 - Chronic kidney disease, unspecified (5) MARCELLO positive: Status: Acute (6) Asthma exacerbation: Status: Acute Qualifiers: Asthma persistence: persistent Asthma severity: severe Qualified Code(s): J45.51 - Severe persistent asthma with (acute) exacerbation (7) FOUZIA (acute kidney injury): Status: Acute Attestations Medical Necessity Statement*: Patient requires hospitalization due to pneumonia secondary COVID-19, asthma exacerbation Coding Level of Care Code 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
[2020-12-13] MEDS: doxycycline 100 mg Tablet PO (17:08)
[2020-12-13] MEDS: acetaminophen 325 mg Tablet 650 MG PO (17:08)
[2020-12-13] MEDS: remdesivir 100 MG in sodium chloride 0.9% (100 ml) 80 ML IV (18:19)
--- NOTE | 2020-12-13 18:23 | PC.NURSE ---
Shift Note Frequent safety and comfort rounds continue. Orders and/or nursing care completed as indicated. Patient monitored for response to intervention and treatment(s). Patient sat up in chair during each meal today. Patient is currently resting comfortably in bed. Will continue to monitor.
[2020-12-13] MEDS: ropinirole 1 mg Tablet PO (20:39)
[2020-12-13] MEDS: zolpidem 5 mg Tablet 10 MG PO (20:39)
[2020-12-13] MEDS: dilTIAZem ER (24HR) 180 mg Capsule PO (20:39)
[2020-12-13] MEDS: enoxaparin 40 mg/0.4 mL Syringe SUBCUT (20:40)
[2020-12-13 20:46] LABS: Glucose Point of Care 353 mg/dL (70-110)
[2020-12-14] VITALS (17 sets, daily range): BP systolic 127–150; BP diastolic 55–83; PULSE 74–96; RESP 17–23; TEMP 36.5–36.8; O2SAT 90–96
[2020-12-14] MEDS: ipratropium-albuterol 3 mL Neb INHALATION ×5 (03:17→20:10)
[2020-12-14 06:05] LABS: Basophils % 0.2 %; Hematocrit 32.6 % (37.0-47.0); Hemoglobin 10.4 g/dL (11.5-15.3); Lymphocytes # 0.7 10^3/uL (0.8-4.8); Lymphocytes % 10.5 %; Mean Corpuscular HGB Conc 31.9 g/dL (30.0-36.0); Mean Corpuscular Hemoglobin 29.7 pg (28.0-34.0); Mean Corpuscular Volume 93.1 fl (81-99); Mean Platelet Volume 10.1 fL (7.4-10.4); Monocytes # 0.4 10^3/uL (0.2-0.9); Monocytes % 5.9 %; Neutrophils # 5.11 10^3/uL (1.8-7.7); Neutrophils % 78.6 %; Nucleated Red Blood Cells % 0 %; Platelet Count 290 10^3/cmm (130-400); Red Cell Distribution Width 15.7 % (12.1-15.1); White Blood Count 6.5 10^3/uL (4.0-10.0)
[2020-12-14 06:31] LABS: Alanine Aminotransferase 20 U/L (0-33); Albumin Level 3.2 g/dL (3.5-5.2); Alkaline Phosphatase 69 IU/L (35-105); Anion Gap 14.1 (5-19); Aspartate Amino Transferase 17 U/L (0-32); Blood Urea Nitrogen 29 mg/dL (8-23); C Reactive Protein 10.6 mg/L (0.0-4.9); Calcium 8.3 mg/dL (8.5-10.5); Carbon Dioxide 25 mmol/L (22-29); Chloride 105 mmol/L (98-107); Globulin 2.8 g/dL (1.3-4.6); Glucose 274 mg/dL (65-115); Magnesium 2.5 mg/dL (1.7-2.3); Osmolality Calculated 306 mOsm/kg (285-295); Phosphorus 2.6 mg/dL (2.5-4.5); Potassium 4.1 mmol/L (3.5-5.1); Sodium 140 mmol/L (136-145); Total Bilirubin 0.2 mg/dL (0.15-1.2)
[2020-12-14 06:33] LABS: Glucose Point of Care 257 mg/dL (70-110)
[2020-12-14 06:37] LABS: NT Pro B Type Natriuretic Pept 3131 pg/mL (0-125); Procalcitonin 0.05 ng/mL (0-0.5)
[2020-12-14] MEDS: budesonide 0.5 mg/2 mL Neb INHALATION ×2 (08:08→20:10)
[2020-12-14] MEDS: pantoprazole DR 40 mg Tablet PO ×2 (08:59→17:33)
[2020-12-14] MEDS: ferrous sulfate EC 325 mg Tablet PO (08:59)
[2020-12-14] MEDS: ascorbic acid 500 mg Tablet PO ×2 (08:59→17:33)
[2020-12-14] MEDS: levothyroxine 112 mcg Tablet PO (08:59)
[2020-12-14] MEDS: losartan 50 mg Tablet PO (08:59)
[2020-12-14] MEDS: zinc gluconate 50 mg Tablet PO (08:59)
[2020-12-14] MEDS: docusate sodium 100 mg Capsule PO ×2 (08:59→17:33)
[2020-12-14] MEDS: cholecalciferol (vitamin D3) 1,000 unit Tablet 1000 UNIT PO (08:59)
[2020-12-14] MEDS: doxycycline 100 mg Tablet PO ×2 (08:59→17:33)
[2020-12-14] MEDS: gabapentin 100 mg Capsule PO ×3 (08:59→20:55)
[2020-12-14] MEDS: montelukast sodium 10 mg Tablet PO (08:59)
[2020-12-14] MEDS: TRAMadol 50 mg Tablet PO ×2 (09:04→22:02)
[2020-12-14] MEDS: FUROsemide 10 mg/mL SDV 2mL 20 MG IVP (09:35)
--- NOTE | 2020-12-14 09:52 | PC.SOCIAL ---
IMM Update Page 2 IMM updated and reviewed. Initialed, timed and dated and copy placed in chart.
--- NOTE | 2020-12-14 11:49 | PM.PN ---
Subjective Subjective: Interval history: Patient was seen this morning, her wheezing has improved, but persists on expiration, afebrile overnight, no fevers, chills, no nausea, no vomiting, has some swelling in her legs Vitals/I&O/Wt Last Vital Signs Temp 97.9 F 12/14/20 08:20 Pulse 85 12/14/20 08:20 Resp 20 H 12/14/20 08:20 BP 136/78 12/14/20 08:59 Pulse Ox 93 12/14/20 08:20 12/13/20 12/14/20 12/14/20 22:59 06:59 14:59 Intake Total 560 / 850 Output Total 550 / 550 Balance 560 / 850 -550 / -550 Physical Exam Const: COMMON NORMALS: no acute distress and patient oriented x3 Resp: COMMON NORMALS: normal respiratory effort, No retractions and No use of accessory muscles AUSCULTATION: wheezes Cardio: COMMON NORMALS: regular rate, regular rhythm, S1 normal heart sound present and S2 normal heart sound present RATE: regular rate RHYTHM: regular rhythm HEART SOUNDS: S1 normal heart sound present and S2 normal heart sound present GI: COMMON NORMALS: Normal to inspection, nondistended, normoactive bowel sounds present, Soft to palpation and non-tender PALPATION: Yes Soft to palpation Extremity: NARRATIVE EXTREMITY EXAM: Bilateral 1+ pitting edema Neuro: COMMON NORMALS: patient oriented x3 Psych: COMMON NORMALS: mental status grossly normal Data : 12/14/20 05:21 12/14/20 05:21 A&P Assessment and plan (1) Pneumonia due to COVID-19 virus: -Asthma exacerbation secondary COVID-19 pneumonia -Currently with minimal expiratory wheezing, clinically improved Plan: -Continue Solu-Medrol 40 every 8 hours -DuoNebs every 4 hours -Budesonide every 12 hours -On doxycycline -Vitamin C, zinc, vitamin D - incentive spirometer, flutter valve -Remdesivir -Did not clinically respond to doses of mag sulfate -Elevated BNP, cardiac echocardiogram shows an EF of 55 to 60%, grade 1 diastolic dysfunction, mild aortic stenosis, will give 1 dose of Lasix -Follow blood cultures, sputum cultures, urine bacterial antigens, so far negative -Full code -Lovenox for DVT prophylaxis Elevated blood sugar, A1c 5.9, elevated blood sugars, start insulin sliding scale CKD, creatinine 1.0, continue to monitor Non-ST elevation [place], no clinically significant troponin, no significant delta troponin, no chest pain complaints, no acute ST-T wave changes, likely from acute respiratory failure as above Mixed connective tissue disease, hold hydroxychloroquine given risk of QT prolongation with remdesivir Status: Acute (2) Asthma: Status: Acute (3) Anti-HAIR SALON MANAGER antibodies present: Status: Acute (4) CKD (chronic kidney disease): Status: Acute Qualifiers: Chronic kidney disease stage: unspecified stage Qualified Code(s): N18.9 - Chronic kidney disease, unspecified (5) MARCELLO positive: Status: Acute (6) Asthma exacerbation: Status: Acute Qualifiers: Asthma persistence: persistent Asthma severity: severe Qualified Code(s): J45.51 - Severe persistent asthma with (acute) exacerbation (7) FOUZIA (acute kidney injury): Status: Acute Attestations Medical Necessity Statement*: Patient requires hospitalization due to asthma exacerbation, pneumonia secondary COVID-19, Coding Level of Care Code 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
[2020-12-14 12:24] LABS: Glucose Point of Care 260 mg/dL (70-110)
[2020-12-14 17:03] LABS: Glucose Point of Care 285 mg/dL (70-110)
[2020-12-14 20:26] LABS: Glucose Point of Care 198 mg/dL (70-110)
[2020-12-14] MEDS: enoxaparin 40 mg/0.4 mL Syringe SUBCUT (20:55)
[2020-12-14] MEDS: zolpidem 5 mg Tablet 10 MG PO (20:56)
[2020-12-14] MEDS: dilTIAZem ER (24HR) 180 mg Capsule PO (20:56)
[2020-12-14] MEDS: ropinirole 1 mg Tablet PO (20:56)
[2020-12-15] VITALS (18 sets, daily range): BP systolic 136–156; BP diastolic 73–84; PULSE 75–103; RESP 16–24; TEMP 36.6–36.9; O2SAT 89–93
[2020-12-15] MEDS: ipratropium-albuterol 3 mL Neb INHALATION ×6 (00:10→19:55)
[2020-12-15] MEDS: acetaminophen 325 mg Tablet 650 MG PO ×2 (03:05→21:03)
[2020-12-15 06:07] LABS: Basophils % 0.2 %; Hematocrit 33.2 % (37.0-47.0); Hemoglobin 10.7 g/dL (11.5-15.3); Lymphocytes # 0.7 10^3/uL (0.8-4.8); Lymphocytes % 7.1 %; Mean Corpuscular HGB Conc 32.2 g/dL (30.0-36.0); Mean Corpuscular Hemoglobin 29.8 pg (28.0-34.0); Mean Corpuscular Volume 92.5 fl (81-99); Mean Platelet Volume 10.1 fL (7.4-10.4); Monocytes # 0.4 10^3/uL (0.2-0.9); Monocytes % 3.7 %; Neutrophils # 8.47 10^3/uL (1.8-7.7); Neutrophils % 84.5 %; Nucleated Red Blood Cells % 0 %; Platelet Count 302 10^3/cmm (130-400); Red Blood Count 3.59 10^6/uL (4.1-5.3); Red Cell Distribution Width 15.4 % (12.1-15.1)
[2020-12-15 06:31] LABS: Alanine Aminotransferase 19 U/L (0-33); Albumin Level 3.2 g/dL (3.5-5.2); Alkaline Phosphatase 62 IU/L (35-105); Anion Gap 13.4 (5-19); Aspartate Amino Transferase 16 U/L (0-32); Blood Urea Nitrogen 29 mg/dL (8-23); C Reactive Protein 5.7 mg/L (0.0-4.9); Calcium 8.2 mg/dL (8.5-10.5); Carbon Dioxide 26 mmol/L (22-29); Chloride 104 mmol/L (98-107); Globulin 2.9 g/dL (1.3-4.6); Glucose 243 mg/dL (65-115); Magnesium 2.4 mg/dL (1.7-2.3); Osmolality Calculated 302 mOsm/kg (285-295); Phosphorus 2.6 mg/dL (2.5-4.5); Potassium 4.4 mmol/L (3.5-5.1); Sodium 139 mmol/L (136-145); Total Bilirubin 0.3 mg/dL (0.15-1.2); Total Protein 6.1 g/dL (6.6-8.7)
[2020-12-15 06:37] LABS: Glucose Point of Care 224 mg/dL (70-110)
[2020-12-15 06:41] LABS: NT Pro B Type Natriuretic Pept 3366 pg/mL (0-125); Procalcitonin 0.05 ng/mL (0-0.5)
[2020-12-15] MEDS: budesonide 0.5 mg/2 mL Neb INHALATION ×2 (07:45→19:55)
[2020-12-15] MEDS: gabapentin 100 mg Capsule PO ×3 (08:18→21:05)
[2020-12-15] MEDS: doxycycline 100 mg Tablet PO ×2 (08:18→18:24)
[2020-12-15] MEDS: ascorbic acid 500 mg Tablet PO ×2 (08:18→18:24)
[2020-12-15] MEDS: ferrous sulfate EC 325 mg Tablet PO (08:19)
[2020-12-15] MEDS: levothyroxine 112 mcg Tablet PO (08:19)
[2020-12-15] MEDS: zinc gluconate 50 mg Tablet PO (08:19)
[2020-12-15] MEDS: cholecalciferol (vitamin D3) 1,000 unit Tablet 1000 UNIT PO (08:19)
[2020-12-15] MEDS: pantoprazole DR 40 mg Tablet PO ×2 (08:19→18:24)
[2020-12-15] MEDS: montelukast sodium 10 mg Tablet PO (08:19)
[2020-12-15] MEDS: docusate sodium 100 mg Capsule PO ×2 (08:19→18:24)
[2020-12-15] MEDS: losartan 50 mg Tablet PO (08:19)
[2020-12-15] MEDS: TRAMadol 50 mg Tablet PO ×2 (08:27→21:22)
[2020-12-15 12:03] LABS: Glucose Point of Care 199 mg/dL (70-110)
--- NOTE | 2020-12-15 12:15 | PM.PN ---
Subjective Subjective: Interval history: Patient was seen this morning, her wheezing has improved, but persists on expiration, afebrile overnight, no fevers, chills, no nausea, no vomiting, has some swelling in her legs Vitals/I&O/Wt Last Vital Signs Temp 98.2 F 12/15/20 11:47 Pulse 86 12/15/20 11:47 Resp 17 12/15/20 11:47 BP 136/73 12/15/20 11:47 Pulse Ox 90 12/15/20 11:47 12/14/20 12/15/20 12/15/20 22:59 06:59 14:59 Intake Total 240 / 480 100 / 100 Output Total 300 / 850 Balance -60 / -370 100 / 100 Physical Exam Const: COMMON NORMALS: patient oriented x3 HENMT: COMMON NORMALS: normocephalic and atraumatic HEAD & SCALP: normocephalic and atraumatic Resp: OTHER: B/L Wheezing present in both lungs ventura Cardio: COMMON NORMALS: regular rate, regular rhythm, S1 normal heart sound present, S2 normal heart sound present, No gallops present (Cardio), No murmurs present (Cardio), No rub (Cardio) and Peripheral pulses 2+ throughout RATE: regular rate RHYTHM: regular rhythm HEART SOUNDS: S1 normal heart sound present and S2 normal heart sound present PERIPHERAL PULSES: Peripheral pulses 2+ throughout GI: COMMON NORMALS: Normal to inspection, nondistended, normoactive bowel sounds present, Soft to palpation, non-tender, No hepatosplenomegaly present and no masses AUSCULTATION: Yes normoactive bowel sounds PALPATION: Yes Soft to palpation and Yes No hepatosplenomegaly present RECTAL EXAM: deferred Extremity: COMMON NORMALS: no clubbing, cyanosis or edema and no pedal edema Neuro: COMMON NORMALS: patient oriented x3 Data : 12/15/20 05:44 12/15/20 05:44 Micro: Microbiology 12/09/20 18:43 Blood Culture - Final Blood NO GROWTH AFTER 5 DAYS 12/09/20 17:00 Blood Culture - Final Blood NO GROWTH AFTER 5 DAYS 12/14/20 11:08 Bacterial Antigens - Final Urine,Clean Catch A&P Assessment and plan (1) Pneumonia due to COVID-19 virus: -Asthma exacerbation secondary COVID-19 pneumonia -Currently with minimal expiratory wheezing, clinically improved Plan: -Continue Solu-Medrol 40 every 8 hours -DuoNebs every 4 hours -Budesonide every 12 hours -On doxycycline -Vitamin C, zinc, vitamin D - incentive spirometer, flutter valve -Remdesivir -Did not clinically respond to doses of mag sulfate -Elevated BNP, cardiac echocardiogram shows an EF of 55 to 60%, grade 1 diastolic dysfunction, mild aortic stenosis, will give 1 dose of Lasix -Follow blood cultures, sputum cultures, urine bacterial antigens, so far negative -Full code -Lovenox for DVT prophylaxis Elevated blood sugar, A1c 5.9, elevated blood sugars, start insulin sliding scale CKD, creatinine 1.0, continue to monitor Non-ST elevation [place], no clinically significant troponin, no significant delta troponin, no chest pain complaints, no acute ST-T wave changes, likely from acute respiratory failure as above Mixed connective tissue disease, hold hydroxychloroquine given risk of QT prolongation with remdesivir Status: Acute (2) Asthma: Status: Acute (3) Anti-SOFTWARE TEST ANALYST antibodies present: Status: Acute (4) CKD (chronic kidney disease): Status: Acute Qualifiers: Chronic kidney disease stage: unspecified stage Qualified Code(s): N18.9 - Chronic kidney disease, unspecified (5) MARCELLO positive: Status: Acute (6) Asthma exacerbation: Status: Acute Qualifiers: Asthma persistence: persistent Asthma severity: severe Qualified Code(s): J45.51 - Severe persistent asthma with (acute) exacerbation (7) FOUZIA (acute kidney injury): Status: Acute Attestations Medical Necessity Statement*: Patient needs to be in hospital for the management of PNA Coding Level of Care Code 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
[2020-12-15 16:56] LABS: Glucose Point of Care 247 mg/dL (70-110)
--- NOTE | 2020-12-15 19:10 | PC.NURSE ---
Report to Mike DUPREE at this time.
[2020-12-15] MEDS: zolpidem 5 mg Tablet 10 MG PO (21:02)
[2020-12-15] MEDS: enoxaparin 40 mg/0.4 mL Syringe SUBCUT (21:02)
[2020-12-15] MEDS: ropinirole 1 mg Tablet PO (21:03)
[2020-12-15] MEDS: dilTIAZem ER (24HR) 180 mg Capsule PO (21:03)
[2020-12-15 21:07] LABS: Glucose Point of Care 266 mg/dL (70-110)
[2020-12-16] VITALS (14 sets, daily range): BP systolic 124–151; BP diastolic 68–80; PULSE 81–101; RESP 16–26; TEMP 36.6–36.9; O2SAT 87–95
[2020-12-16] MEDS: ipratropium-albuterol 3 mL Neb INHALATION ×3 (03:29→11:47)
[2020-12-16 05:34] LABS: Basophils % 0.2 %; Hematocrit 32.7 % (37.0-47.0); Hemoglobin 10.4 g/dL (11.5-15.3); Lymphocytes # 0.6 10^3/uL (0.8-4.8); Lymphocytes % 7.7 %; Mean Corpuscular HGB Conc 31.8 g/dL (30.0-36.0); Mean Corpuscular Hemoglobin 29.9 pg (28.0-34.0); Mean Platelet Volume 10.2 fL (7.4-10.4); Monocytes # 0.4 10^3/uL (0.2-0.9); Monocytes % 4.5 %; Neutrophils # 6.68 10^3/uL (1.8-7.7); Neutrophils % 82.6 %; Nucleated Red Blood Cells % 0 %; Platelet Count 307 10^3/cmm (130-400); Red Blood Count 3.48 10^6/uL (4.1-5.3); Red Cell Distribution Width 15.9 % (12.1-15.1); White Blood Count 8.1 10^3/uL (4.0-10.0)
[2020-12-16 06:01] LABS: Anion Gap 13.7 (5-19); Blood Urea Nitrogen 31 mg/dL (8-23); Calcium 8.1 mg/dL (8.5-10.5); Carbon Dioxide 23 mmol/L (22-29); Chloride 105 mmol/L (98-107); Glucose 274 mg/dL (65-115); Osmolality Calculated 300 mOsm/kg (285-295); Potassium 4.7 mmol/L (3.5-5.1); Sodium 137 mmol/L (136-145)
[2020-12-16 06:42] LABS: Glucose Point of Care 270 mg/dL (70-110)
[2020-12-16] MEDS: budesonide 0.5 mg/2 mL Neb INHALATION (08:05)
[2020-12-16] MEDS: doxycycline 100 mg Tablet PO (09:08)
[2020-12-16] MEDS: cholecalciferol (vitamin D3) 1,000 unit Tablet 1000 UNIT PO (09:08)
[2020-12-16] MEDS: montelukast sodium 10 mg Tablet PO (09:08)
[2020-12-16] MEDS: losartan 50 mg Tablet PO (09:08)
[2020-12-16] MEDS: ascorbic acid 500 mg Tablet PO (09:08)
[2020-12-16] MEDS: levothyroxine 112 mcg Tablet PO (09:08)
[2020-12-16] MEDS: zinc gluconate 50 mg Tablet PO (09:08)
[2020-12-16] MEDS: docusate sodium 100 mg Capsule PO (09:09)
[2020-12-16] MEDS: gabapentin 100 mg Capsule PO (09:09)
[2020-12-16] MEDS: TRAMadol 50 mg Tablet PO (09:09)
[2020-12-16] MEDS: ferrous sulfate EC 325 mg Tablet PO (09:09)
[2020-12-16] MEDS: pantoprazole DR 40 mg Tablet PO (09:09)
--- NOTE | 2020-12-16 09:41 | PM.DCS ---
Discharge Providers Date of Admission: 12/09/20 17:55 Date of Discharge: December 16, 2020 Attending Provider at Admission: Kee Dewitt MD Attending Provider at Discharge: Stuart Srivastava MD Primary Care Provider: Chip Savage MD Diagnoses at Discharge Discharge Diagnosis (1) Pneumonia due to COVID-19 virus: Status: Acute (2) Asthma: Status: Acute (3) Anti-HISTOLOGY TECHNICIAN antibodies present: Status: Acute (4) CKD (chronic kidney disease): Status: Acute Qualifiers: Chronic kidney disease stage: unspecified stage Qualified Code(s): N18.9 - Chronic kidney disease, unspecified (5) MARCELLO positive: Status: Acute (6) Asthma exacerbation: Status: Acute Qualifiers: Asthma persistence: persistent Asthma severity: severe Qualified Code(s): J45.51 - Severe persistent asthma with (acute) exacerbation (7) FOUZIA (acute kidney injury): Status: Acute Reason for Visit Reason for Visit: LOW 02 Hospital Course Hospital Course 70 year old female with a past medical history of moderate asthma, no history of ICU admissions, intubation, no history of exacerbation in the last year, 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 Further work-up during the hospital stay revealed Covid pneumonia. She was kept on Covid protocol completed 5-day course of remdesivir, was on IV steroid, duo nebs, and other conservative respiratory support measures. She was also empirically kept on broad-spectrum antibiotic, blood cultures were negative, sputum culture negative, bacterial antigen panel was negative. She responded well to the above medical management, at the time of discharge she was requiring 5 L oxygen on ambulation. Patient was also managed for asthma exacerbation secondary to Covid patient was discharged on additional 7-days of prednisone 40 p.o. daily as she was still having some active wheezing. She will follow Dr. Bermeo as outpatient. Physical Exam Const: COMMON NORMALS: patient oriented x3 HENMT: COMMON NORMALS: normocephalic and atraumatic HEAD & SCALP: normocephalic and atraumatic Resp: OTHER: B/L Wheezing present in both lungs ventura Cardio: COMMON NORMALS: regular rate, regular rhythm, S1 normal heart sound present, S2 normal heart sound present, No gallops present (Cardio), No murmurs present (Cardio), No rub (Cardio) and Peripheral pulses 2+ throughout RATE: regular rate RHYTHM: regular rhythm HEART SOUNDS: S1 normal heart sound present and S2 normal heart sound present PERIPHERAL PULSES: Peripheral pulses 2+ throughout GI: COMMON NORMALS: Normal to inspection, nondistended, normoactive bowel sounds present, Soft to palpation, non-tender, No hepatosplenomegaly present and no masses AUSCULTATION: Yes normoactive bowel sounds PALPATION: Yes Soft to palpation and Yes No hepatosplenomegaly present RECTAL EXAM: deferred Extremity: COMMON NORMALS: no clubbing, cyanosis or edema and no pedal edema Neuro: COMMON NORMALS: patient oriented x3 Discharge Data Data Completed and Pending: Completed Studies During Hospitalization Category Date Time Status XR chest 1V cristopher ble [id number] Routine Exams 12/13/20 07:00 Completed XR chest 1V cristopher ble [id number] Stat Exams 12/09/20 16:46 Completed CV. echo complete * [id number] Routine Ultrasound 12/13/20 11:41 Completed Labs from last 24 hours 12/16/20 12/16/20 12/16/20 06:32 05:04 05:04 WBC 8.1 RBC 3.48 L Hgb 10.4 L Hct 32.7 L MCV 94.0 MCH 29.9 MCHC 31.8 RDW 15.9 H Plt Count 307 MPV 10.2 Neut % (Auto) 82.6 Lymph % (Auto) 7.7 Sanborn % (Auto) 4.5 Eos % (Auto) 0.0 Baso % (Auto) 0.2 Neut # (Auto) 6.68 Lymph # (Auto) 0.6 L Sanborn # (Auto) 0.4 Eos # (Auto) 0.0 Baso # (Auto) 0.0 Nucleated RBC % (a uto) 0 Nucleated RBCs # 0.0 Sodium 137 Potassium 4.7 Chloride 105 Carbon Dioxide 23 Anion Gap 13.7 BUN 31 H Creatinine 0.9 GFR Calculation Not Reportable Glucose 274 H POC Glucose 270 H Calculated Osmolal ity 300 H Calcium 8.1 L 12/15/20 12/15/20 12/15/20 20:59 16:50 11:43 WBC RBC Hgb Hct MCV MCH MCHC RDW Plt Count MPV Neut % (Auto) Lymph % (Auto) Sanborn % (Auto) Eos % (Auto) Baso % (Auto) Neut # (Auto) Lymph # (Auto) Sanborn # (Auto) Eos # (Auto) Baso # (Auto) Nucleated RBC % (a uto) Nucleated RBCs # Sodium Potassium Chloride Carbon Dioxide Anion Gap BUN Creatinine GFR Calculation Glucose POC Glucose 266 H 247 H 199 H Calculated Osmolal ity Calcium Vitals: Last Vital Signs Temp 98.4 F 12/16/20 08:00 Pulse 81 12/16/20 08:22 Resp 18 12/16/20 08:08 BP 151/77 12/16/20 09:08 Pulse Ox 90 12/16/20 08:08 Discharge Plan Discharge Patient Disposition: Home Condition: Stable Prescriptions: New prednisone 50 mg tablet 40 mg PO DAILY 7 Days Qty: 7 RF: 0 Continued omeprazole 20 mg capsule,delayed release(DR/EC) 20 mg PO BEDTIME RF: 0 azelastine 137 mcg (0.1 %) aerosol,spray 1 spray INTRANASAL BID RF: 0 fluticasone propionate [Flonase Allergy Relief] 50 mcg/actuation spray,suspension 1 spray INTRANASAL BID RF: 0 Spiriva with HandiHaler 18 mcg capsule, w/inhalation device 1 cap INHALATION DAILY RF: 0 albuterol sulfate [ProAir HFA] 90 mcg/actuation HFA aerosol inhaler 2 puff INHALATION Q6H PRN (Reason: Shortness Of Breath) RF: 0 ipratropium bromide 0.03 % spray,non-aerosol 2 spray INTRANASAL BID RF: 0 triamcinolone acetonide 0.1 % cream 1 applic TOPICAL TID RF: 0 diltiazem HCl 240 mg capsule,extended release 24 hr 240 mg PO QAM RF: 0 losartan 50 mg tablet 50 mg PO DAILY RF: 0 levothyroxine [Levoxyl] 112 mcg tablet 112 mcg PO QAM RF: 0 ropinirole 1 mg tablet 1 mg PO BEDTIME RF: 0 cyclobenzaprine 5 mg tablet 5 mg PO . DIRECTED PRN (Reason: Muscle Spasm) RF: 0 tramadol 50 mg tablet 50 mg PO BID RF: 0 gabapentin 100 mg capsule See Rx Instructions .ROUTE .COMPLEX RF: 0 zolpidem [Ambien] 10 mg tablet 10 mg PO BEDTIME PRN (Reason: Sleep) RF: 0 allopurinol 100 mg tablet 100 mg PO QAM RF: 0 yhkbwj-qmi-eumfgfgs-C-Mn-hrb21 500-333-5 mg capsule 2 cap PO DAILY RF: 0 multivitamin with minerals [Hair,Skin and Nails] Tablet 1 tab PO DAILY RF: 0 ferrous sulfate [iron] 325 mg (65 mg iron) tablet 325 mg PO DAILY RF: 0 montelukast [Singulair] 10 mg tablet 10 mg PO BEDTIME RF: 0 neomycin-polymyxin B-dexameth Drops,Suspension 1 drp ophthalmic (eye) . DIRECTED PRN (Reason: UNKNOWN) RF: 0 Ocuvite Eye Plus Multi 200-15-150 mcg tablet 2 tab PO DAILY RF: 0 bepotastine besilate [Bepreve] 1.5 % drops 1 drp ophthalmic (eye) BID PRN (Reason: UNKNOWN) RF: 0 potassium chloride 10 mEq capsule, extended release 10 meq PO BID RF: 0 hydroxychloroquine 200 mg tablet 200 mg PO BID Qty: 180 RF: 3 furosemide 40 mg tablet 40 mg PO BID RF: 0 atorvastatin 40 mg tablet 40 mg PO DAILY RF: 0 Tiadylt ER 180 mg capsule,extended release 24 hr 180 mg PO BEDTIME RF: 0 albuterol sulfate 2.5 mg /3 mL (0.083 %) solution for nebulization 2.5 mg inhalation Q6H PRN (Reason: Wheezing) RF: 0 Zyrtec 10 mg Tablet 10 mg PO DAILY RF: 0 erythromycin 5 mg/gram (0.5 %) ointment 1 applic ophthalmic (eye) BEDTIME RF: 0 triamcinolone acetonide 0.1 % ointment 1 applic TOPICAL DAILY RF: 0 Qvar RediHaler 80 mcg/actuation HFA aerosol breath activated 1 inh INHALATION BID RF: 0 Discontinued prednisone 10 mg tablet See Rx Instructions .ROUTE .COMPLEX RF: 0 Discharge Orders: Discharge Order (Routine); Ordered 12/16/20 Ordered By: Stuart Srivastava Other Ambulatory Orders: DME: Oxygen (Order) Location: None Selected Ordered By: Stuart Srivastava DME: Oxygen (Order) Location: None Selected Ordered By: Stuart Srivastava Referrals: [facility] [place]] Datar,Gigi Loyola MD [Physician] - 12/31/20 10:15 am hCip Savage MD [Primary Care Provider] - 12/30/20 12:30 pm Discharge Diet: Regular Discharge Activity: Resume usual activity Patient Instructions: Prednisone (By mouth), Hypoxia (GEN), Opioid Safety Discharge Attestations Time Spent in Discharge Care*: less than 30 min Specific Discharge Activities: educating patient, educating and/or supporting family/caregiver, discussing with pcp/other providers, discussing with family independence case manager/social workers/dc planners, documenting/other paperwork and evaluating patient/reviewing data Status at Discharge: Cognitive status at discharge: cognitively intact, Behavioral status at discharge: cooperative, Functional status at discharge: independent ambulation Overall status at discharge: patient is progressing back to baseline Quality Metrics Clinical Quality Measures During this hospital stay, did patient experience: None Coding Level of Care Code Acute Chg DC note Diagnoses Pneumonia due to COVID-19 virus U07.1; J12.82 Asthma J45.909 Anti-HISTOLOGY TECHNICIAN antibodies present R76.8 CKD (chronic kidney disease) N18.9 Chronic kidney disease stage: unspecified stage MARCELLO positive R76.8 Asthma exacerbation J45.51 Asthma persistence: persistent Asthma severity: severe FOUZIA (acute kidney injury) N17.9
--- NOTE | 2020-12-16 11:09 | PC.SOCIAL ---
IMM Updated Updated pt via phone on IMM. No questions voiced. Provided pt a copy. Initialed, dated, & timed copy in chart.
[2020-12-16 12:28] LABS: Glucose Point of Care 205 mg/dL (70-110)
--- NOTE | 2020-12-16 15:24 | PC.NURSE ---
IV removed at this time. Patient tolerated well. Patient is A&Ox3. Respirations even and non-labored on NC @ 2 liters. Reviewed patient's discharge with patient at this time. Patient verbalized understanding of discharge instructions including her medications and follow up appointments. Patient wheel chaired to the van to take her home. Patient has oxygen provided by HOME that was sent with her.
--- NOTE | 2020-12-17 11:10 | PC.SOCIAL ---
unable to call patient for discharge follow up call. number listed has a busy signal when chart writer attempts to dial. only number listed for contact.
== END 2020-12-16 15:15 | disposition home or self-care (01) | DRG 177 ==
LOC: ER 16:44 → MEDSURG 18:34
PROVIDERS: Admitting Provider Family Medicine; Emergency Provider Family Medicine; PCP Family Medicine; Visit Provider Internal Medicine
DX: U07.1 COVID-19 (principal); J12.82 Pneumonia due to coronavirus disease 2019; I21.4 Non-ST elevation (NSTEMI) myocardial infarction; J45.51 Severe persistent asthma with (acute) exacerbation; N17.9 Acute kidney failure, unspecified; Z68.43 Body mass index [BMI] 50.0-59.9, adult; M19.90 Unspecified osteoarthritis, unspecified site; N18.9 Chronic kidney disease, unspecified; I12.9 Hypertensive chronic kidney disease with stage 1 through stage 4 chronic kidney disease, or unspecified chronic kidney disease; M10.9 Gout, unspecified; E03.9 Hypothyroidism, unspecified; M32.9 Systemic lupus erythematosus, unspecified; Z79.51 Long term (current) use of inhaled steroids; Z79.891 Long term (current) use of opiate analgesic
CPT/HCPCS: 36415; 36416; 36600; 71045; 80048; 80051; 80053; 80061; 80202; 82330; 82803; 82805; 82962; 83036; 83605; 83735; 83880; 84100; 84145; 84443; 84484; 85025; 85378; 86140; 86403; 87040; 87070; 87205; 87426; 87635; 87641; 93005; 93306; 94640; 94664; 94762; 96372; 96374; 99285; J0692; J1100; J1650; J1815; J1940; J2920; J3105; J3370; J3475; J7611; J7626

== ENCOUNTER 2021-02-25 11:42 | Outpatient (CLI) | payer MEDICARE, OTHER, SELFPAY ==
[2021-02-25 12:15] LABS: Basophils # 0.1 10^3/uL (0.0-0.1); Basophils % 1.6 %; Eosinophils # 0.3 10^3/uL (0.0-0.8); Eosinophils % 7.5 %; Hematocrit 37.1 % (37.0-47.0); Hemoglobin 11.7 g/dL (11.5-15.3); Lymphocytes # 1.7 10^3/uL (0.8-4.8); Lymphocytes % 38.2 %; Mean Corpuscular HGB Conc 31.5 g/dL (30.0-36.0); Mean Corpuscular Hemoglobin 30.2 pg (28.0-34.0); Mean Corpuscular Volume 95.6 fl (81-99); Mean Platelet Volume 9.4 fL (7.4-10.4); Monocytes # 0.3 10^3/uL (0.2-0.9); Monocytes % 6.6 %; Neutrophils # 2.03 10^3/uL (1.8-7.7); Neutrophils % 46.1 %; Nucleated Red Blood Cells % 0 %; Platelet Count 325 10^3/cmm (130-400); Red Blood Count 3.88 10^6/uL (4.1-5.3); White Blood Count 4.4 10^3/uL (4.0-10.0)
[2021-02-26 17:41] LABS: Immunoglobulin E 681 kU/L (<OR=114)
== END 2021-02-25 11:43 | disposition home or self-care (01) ==
LOC: LAB 11:44
PROVIDERS: PCP Family Medicine; Visit Provider Internal Medicine Pulmonary Disease
DX: J45.41 Moderate persistent asthma with (acute) exacerbation (principal)
CPT/HCPCS: 82785; 85025

== ENCOUNTER 2021-03-06 06:00 | Outpatient (RCR) | payer MEDICARE, OTHER, SELFPAY | END 2021-03-20 23:59 | disposition home or self-care (01) | LOC: APT 06:00 | PROVIDERS: PCP Family Medicine; Referring Provider Family Medicine; Visit Provider Family Medicine | DX: R26.81 Unsteadiness on feet (principal) | CPT/HCPCS: 97110; 97162 ==

== ENCOUNTER 2021-03-21 06:00 | Outpatient (RCR) | payer MEDICARE, OTHER, SELFPAY | END 2021-04-20 23:59 | disposition home or self-care (01) | LOC: APT 06:00 | PROVIDERS: PCP Family Medicine; Referring Provider Family Medicine; Visit Provider Family Medicine | DX: R26.81 Unsteadiness on feet (principal) | CPT/HCPCS: 97110 ==

== ENCOUNTER 2021-04-21 06:00 | Outpatient (RCR) | payer MEDICARE, OTHER, SELFPAY | END 2021-05-18 23:59 | disposition home or self-care (01) | LOC: APT 06:00 | PROVIDERS: PCP Family Medicine; Referring Provider Family Medicine; Visit Provider Family Medicine | DX: R26.81 Unsteadiness on feet (principal) | CPT/HCPCS: 97110; 97164 ==

== ENCOUNTER → 2021-04-27 10:30 | Outpatient (BNVA) | payer MEDICARE, OTHER, SELFPAY | PROVIDERS: PCP Family Medicine; Visit Provider Internal Medicine Pulmonary Disease | DX: J45.909 Unspecified asthma, uncomplicated (principal); T78.40XA Allergy, unspecified, initial encounter | CPT/HCPCS: 87635 ==

== ENCOUNTER 2021-04-30 10:29 | Outpatient (CLI) | payer MEDICARE, OTHER, SELFPAY ==
--- NOTE | 2021-04-30 13:32 | PFTS_ITS ---
Date of Study:04/30/21 Date of Dictation: 04/30/2021 MECHANICS: Postbronchodilator forced vital capacity (FVC) is normal. Postbronchodilator forced expiratory volume in one second (FEV1) is moderately reduced 68 %. FEV1/FVC is reduced. -There is no significant bronchodilator response FLOW VOLUME LOOP: Scooping of expiratory limb suggestive of airway obstruction LUNG VOLUMES: Total lung capacity (TLC) is normal. Residual volume (RV) is normal. DIFFUSING CAPACITY FOR CARBON MONOXIDE: Normal . INTERPRETATION: The post bronchodilator spirometry consistent with moderate obstruction. There is no significant bronchodilator response. Lung volumes are normal. Normal gas transfer. Clinical correlation recommended. MTDD
== END 2021-04-30 10:30 | disposition home or self-care (01) ==
PROVIDERS: PCP Family Medicine; Visit Provider Internal Medicine Pulmonary Disease
DX: U09.9 Post COVID-19 condition, unspecified (principal)
CPT/HCPCS: 94060; 94726; 94729; J7611

== ENCOUNTER 2021-05-19 06:00 | Outpatient (RCR) | payer MEDICARE, OTHER, SELFPAY | END 2021-06-18 23:59 | disposition home or self-care (01) | LOC: APT 06:00 | PROVIDERS: PCP Family Medicine; Referring Provider Family Medicine; Visit Provider Family Medicine | DX: R26.81 Unsteadiness on feet (principal) | CPT/HCPCS: 97110 ==

== ENCOUNTER → 2021-05-28 10:47 | Outpatient (BNVA) | payer MEDICARE, OTHER, SELFPAY | PROVIDERS: PCP Family Medicine; Visit Provider Internal Medicine | DX: M19.90 Unspecified osteoarthritis, unspecified site (principal); R53.83 Other fatigue; Z79.899 Other long term (current) drug therapy; R76.8 Other specified abnormal immunological findings in serum | CPT/HCPCS: 99214 ==

== ENCOUNTER 2021-06-04 10:31 | Outpatient (CLI) | payer MEDICARE, OTHER, SELFPAY ==
[2021-06-04 11:11] LABS: Add Urine Microscopic? NO; Charge for UA Resulting for Rev
[2021-06-04 11:12] LABS: Erythrocyte Sedimentation Rate 20 mm/hr (0-15)
[2021-06-04 11:14] LABS: Basophils # 0.1 10^3/uL (0.0-0.1); Basophils % 1.7 %; Eosinophils # 0.3 10^3/uL (0.0-0.8); Eosinophils % 5.3 %; Hematocrit 38.1 % (37.0-47.0); Hemoglobin 11.8 g/dL (11.5-15.3); Lymphocytes # 1.3 10^3/uL (0.8-4.8); Lymphocytes % 27.5 %; Mean Corpuscular Hemoglobin 29.6 pg (28.0-34.0); Mean Corpuscular Volume 95.7 fl (81-99); Mean Platelet Volume 9.2 fL (7.4-10.4); Monocytes # 0.5 10^3/uL (0.2-0.9); Monocytes % 9.6 %; Neutrophils # 2.61 10^3/uL (1.8-7.7); Neutrophils % 55.7 %; Nucleated Red Blood Cells % 0 %; Platelet Count 278 10^3/cmm (130-400); Red Blood Count 3.98 10^6/uL (4.1-5.3); Red Cell Distribution Width 14.6 % (12.1-15.1); White Blood Count 4.7 10^3/uL (4.0-10.0)
[2021-06-04 11:29] LABS: Bilirubin Urine Neg (Negative); Blood Urine Neg (Negative); Glucose Urine UA Norm (Normal); Ketones Urine 1+ (Negative); Leukocyte Esterase Urine Negative (Negative); Nitrate Urine Negative (Negative); Protein Urine Neg (Negative); Specific Gravity, Urine 1.015 (1.005-1.030); Urine Appearance Clear (CLEAR); Urine Color Yellow (Yellow); Urobilinogen Urine Norm (Negative); pH Urine 7 (5-7)
[2021-06-04 12:04] LABS: Alanine Aminotransferase 16 U/L (0-33); Albumin Level 4.1 g/dL (3.5-5.2); Alkaline Phosphatase 88 IU/L (35-105); Anion Gap 13.2 (5-19); Aspartate Amino Transferase 21 U/L (0-32); Blood Urea Nitrogen 13 mg/dL (8-23); C Reactive Protein 4.2 mg/L (0.0-4.9); Calcium 9.6 mg/dL (8.5-10.5); Carbon Dioxide 29 mmol/L (22-29); Chloride 104 mmol/L (98-107); Free T4 Free Thyroxine 1.12 ng/dL (0.82-1.77); Globulin 2.6 g/dL (1.3-4.6); Glucose 104 mg/dL (65-115); Osmolality Calculated 294 mOsm/kg (285-295); Potassium 4.2 mmol/L (3.5-5.1); Sodium 142 mmol/L (136-145); T3 Free 2.4 PG/ML (2.0-4.4); Thyroid Stimulating Hormone 7.16 uIU/mL (0.27-4.20); Total Bilirubin 0.4 mg/dL (0.15-1.2); Total Protein 6.7 g/dL (6.6-8.7)
[2021-06-04 12:19] LABS: Ferritin 34 ng/mL (15-150); Iron 61 ug/dL (37-145)
[2021-06-04 12:36] LABS: Vitamin B12 967 pg/mL (232-1245)
== END 2021-06-04 10:32 | disposition home or self-care (01) ==
LOC: LAB 10:36
PROVIDERS: PCP Family Medicine; Visit Provider Internal Medicine
DX: E03.9 Hypothyroidism, unspecified (principal); J45.909 Unspecified asthma, uncomplicated; M19.90 Unspecified osteoarthritis, unspecified site; R53.83 Other fatigue; R76.8 Other specified abnormal immunological findings in serum; T78.40XA Allergy, unspecified, initial encounter; D64.9 Anemia, unspecified
CPT/HCPCS: 80053; 81003; 82607; 82728; 83540; 84439; 84443; 84481; 85025; 85651; 86140

== ENCOUNTER 2021-06-19 06:00 | Outpatient (RCR) | payer MEDICARE, OTHER, SELFPAY | END 2021-07-01 23:59 | disposition home or self-care (01) | LOC: APT 06:00 | PROVIDERS: PCP Family Medicine; Referring Provider Family Medicine; Visit Provider Family Medicine | DX: R26.81 Unsteadiness on feet (principal) | CPT/HCPCS: 97110 ==

== ENCOUNTER → 2021-07-20 10:10 | Outpatient (BNVA) | payer MEDICARE, OTHER, SELFPAY | PROVIDERS: PCP Family Medicine; Visit Provider Internal Medicine Pulmonary Disease | DX: J45.41 Moderate persistent asthma with (acute) exacerbation (principal); U09.9 Post COVID-19 condition, unspecified; M35.1 Other overlap syndromes; M32.9 Systemic lupus erythematosus, unspecified; I10 Essential (primary) hypertension; T78.40XA Allergy, unspecified, initial encounter | CPT/HCPCS: 99214 ==

== ENCOUNTER 2021-08-21 14:31 | Outpatient (CLI) | payer MEDICARE, OTHER, SELFPAY ==
[2021-08-21 15:04] LABS: Basophils # 0.1 10^3/uL (0.0-0.1); Basophils % 1.7 %; Eosinophils # 0.3 10^3/uL (0.0-0.8); Eosinophils % 8.1 %; Hematocrit 37.8 % (37.0-47.0); Hemoglobin 11.9 g/dL (11.5-15.3); Lymphocytes # 1.6 10^3/uL (0.8-4.8); Lymphocytes % 39.9 %; Mean Corpuscular HGB Conc 31.5 g/dL (30.0-36.0); Mean Corpuscular Hemoglobin 30.3 pg (28.0-34.0); Mean Corpuscular Volume 96.2 fl (81-99); Mean Platelet Volume 9.6 fL (7.4-10.4); Monocytes # 0.4 10^3/uL (0.2-0.9); Monocytes % 10.3 %; Neutrophils # 1.64 10^3/uL (1.8-7.7); Nucleated Red Blood Cells % 0 %; Platelet Count 282 10^3/cmm (130-400); Red Blood Count 3.93 10^6/uL (4.1-5.3); Red Cell Distribution Width 15.4 % (12.1-15.1); White Blood Count 4.1 10^3/uL (4.0-10.0)
[2021-08-21 15:19] LABS: Albumin Level 3.9 g/dL (3.5-5.2); Anion Gap 12.4 (5-19); Blood Urea Nitrogen 18 mg/dL (8-23); Calcium 8.7 mg/dL (8.5-10.5); Carbon Dioxide 30 mmol/L (22-29); Chloride 105 mmol/L (98-107); Glucose 97 mg/dL (65-115); Potassium 4.4 mmol/L (3.5-5.1); Sodium 143 mmol/L (136-145)
[2021-08-21 15:54] LABS: Calcium 8.6 mg/dL (8.5-10.5); Parathyroid Hormone 124.9 pg/mL (15-65)
[2021-08-21 16:28] LABS: Creatinine Urine, Random 136 mg/dL (28-217); Microalbum Creatinine Ratio Ur 7 mg/dL (0-20); Microalbumin Random Urine 1 ug/dL (0-20)
== END 2021-08-21 14:32 | disposition home or self-care (01) ==
PROVIDERS: PCP Family Medicine; Visit Provider Internal Medicine Nephrology
DX: N18.31 Chronic kidney disease, stage 3a (principal)
CPT/HCPCS: 80069; 82044; 82310; 83970; 85025

== ENCOUNTER 2021-09-16 10:06 | Outpatient (CLI) | payer MEDICARE, OTHER, SELFPAY ==
[2021-09-16 11:10] LABS: Anion Gap 12.8 (5-19); Blood Urea Nitrogen 19 mg/dL (8-23); Calcium 8.6 mg/dL (8.5-10.5); Carbon Dioxide 31 mmol/L (22-29); Chloride 101 mmol/L (98-107); Glucose 121 mg/dL (65-115); Osmolality Calculated 296 mOsm/kg (285-295); Potassium 3.8 mmol/L (3.5-5.1); Sodium 141 mmol/L (136-145)
== END 2021-09-16 10:07 | disposition home or self-care (01) ==
PROVIDERS: PCP Family Medicine; Visit Provider Registered Nurse
DX: N13.2 Hydronephrosis with renal and ureteral calculous obstruction (principal)
CPT/HCPCS: 80048

== ENCOUNTER → 2021-11-09 11:20 | Outpatient (BNVA) | payer MEDICARE, OTHER, SELFPAY | PROVIDERS: PCP Family Medicine; Visit Provider Family Medicine | DX: Z51.81 Encounter for therapeutic drug level monitoring (principal); R73.09 Other abnormal glucose; E03.9 Hypothyroidism, unspecified; E53.8 Deficiency of other specified B group vitamins; R53.83 Other fatigue; R76.8 Other specified abnormal immunological findings in serum; M19.90 Unspecified osteoarthritis, unspecified site; L84 Corns and callosities; Z79.899 Other long term (current) drug therapy; R60.9 Edema, unspecified; G62.9 Polyneuropathy, unspecified; M10.9 Gout, unspecified | CPT/HCPCS: 80053; 82607; 83036; 84439; 84443; 85025; 85651; 86140 ==

== ENCOUNTER → 2022-03-29 07:55 | Outpatient (BNVA) | payer MEDICARE, OTHER, SELFPAY | PROVIDERS: PCP Family Medicine; Visit Provider Student in an Organized Health Care Education/Training Program | DX: S82.402A Unspecified fracture of shaft of left fibula, initial encounter for closed fracture; S82.302A Unspecified fracture of lower end of left tibia, initial encounter for closed fracture; W01.0XXA Fall on same level from slipping, tripping and stumbling without subsequent striking against object, initial encounter | CPT/HCPCS: 73590 ==

== ENCOUNTER 2022-03-29 14:26 | Outpatient (CLI) | payer MEDICARE, OTHER, SELFPAY | END 2022-03-29 14:27 | disposition home or self-care (01) | LOC: SPT 14:27 | PROVIDERS: PCP Family Medicine; Visit Provider Student in an Organized Health Care Education/Training Program | DX: Z46.89 Encounter for fitting and adjustment of other specified devices (principal); S82.202D Unspecified fracture of shaft of left tibia, subsequent encounter for closed fracture with routine healing; S82.402D Unspecified fracture of shaft of left fibula, subsequent encounter for closed fracture with routine healing; X58.XXXD Exposure to other specified factors, subsequent encounter | CPT/HCPCS: 97760; 99204; L1902 ==

== ENCOUNTER 2022-04-12 06:00 | Outpatient (RCR) | payer MEDICARE, OTHER, SELFPAY | END 2022-04-20 23:59 | disposition home or self-care (01) | LOC: APT 06:00 | PROVIDERS: PCP Family Medicine; Visit Provider Student in an Organized Health Care Education/Training Program | DX: S82.202D Unspecified fracture of shaft of left tibia, subsequent encounter for closed fracture with routine healing (principal); X58.XXXD Exposure to other specified factors, subsequent encounter | CPT/HCPCS: 97110; 97163 ==

== ENCOUNTER → 2022-04-13 09:36 | Outpatient (BNVA) | payer MEDICARE, OTHER, SELFPAY | PROVIDERS: PCP Family Medicine; Visit Provider Internal Medicine | DX: M19.90 Unspecified osteoarthritis, unspecified site (principal); R76.8 Other specified abnormal immunological findings in serum | CPT/HCPCS: 80053; 85025; 85651; 86140 ==

== ENCOUNTER → 2022-04-15 14:29 | Outpatient (BNVA) | payer MEDICARE, OTHER, SELFPAY | PROVIDERS: PCP Family Medicine; Visit Provider Internal Medicine | DX: M19.90 Unspecified osteoarthritis, unspecified site (principal); R76.8 Other specified abnormal immunological findings in serum; J45.41 Moderate persistent asthma with (acute) exacerbation | CPT/HCPCS: 99214 ==

== ENCOUNTER → 2022-04-19 09:28 | Outpatient (BNVA) | payer MEDICARE, OTHER, SELFPAY | PROVIDERS: PCP Family Medicine; Visit Provider Student in an Organized Health Care Education/Training Program | DX: S82.302A Unspecified fracture of lower end of left tibia, initial encounter for closed fracture (principal); X58.XXXA Exposure to other specified factors, initial encounter | CPT/HCPCS: 73610; 99213 ==

== ENCOUNTER 2022-04-21 06:00 | Outpatient (RCR) | payer MEDICARE, OTHER, SELFPAY | END 2022-05-18 23:59 | disposition home or self-care (01) | LOC: APT 06:00 | PROVIDERS: PCP Family Medicine; Visit Provider Student in an Organized Health Care Education/Training Program | DX: S82.202S Unspecified fracture of shaft of left tibia, sequela (principal); X58.XXXS Exposure to other specified factors, sequela | CPT/HCPCS: 97110; 97112; 97530 ==

== ENCOUNTER 2022-05-04 15:38 | Outpatient (CLI) | payer MEDICARE, OTHER, SELFPAY ==
--- NOTE | 2022-05-04 16:36 | XRR_ITS ---
PROCEDURE INFORMATION: Exam: XR Left Wrist Exam date and time: 05/04/2022 4:43 PM Age: 71 years old Clinical indication: Pain and injury or trauma; Fall; Blunt trauma (contusions or hematomas); Left; Prior surgery; Patient HX: Neck, lt hip and lt wrist pain, PT fell 6 months ago; Additional info: Left wrist pain TECHNIQUE: Imaging protocol: Radiologic exam of the Left wrist. Views: 3 or more views. COMPARISON: CR XR wrist LT min 3V* [id number] 02/12/2019 10:31 AM FINDINGS: Bones/joints: Ulnar fixation hardware noted. Joint space narrowing with sclerosis of the radiocarpal joint. Minimal sclerosis of the radioulnar joint. Joint space narrowing at the 2nd carpometacarpal joint. No fracture identified. Soft tissues: Unremarkable. XR/XR wrist LT min 3V* [id number] IMPRESSION: No fracture identified.
--- NOTE | 2022-05-04 16:36 | XRR_ITS ---
PROCEDURE INFORMATION: Exam: XR Left Hip Exam date and time: 05/04/2022 4:43 PM Age: 71 years old Clinical indication: Pain and injury or trauma; Fall; Blunt trauma (contusions or hematomas); Hip pain; Left hip; Prior surgery; Surgery type: Left femur; Patient HX: Neck, lt hip and lt wrist pain, PT fell 6 months ago; Additional info: Left hip pain TECHNIQUE: Imaging protocol: Radiologic exam of the Left hip. Views: 2 or 3 views hip with pelvis when performed. COMPARISON: CT abdomen pelvis w con* [id number] 11/18/2016 10:07 AM FINDINGS: Bones/joints: The visualized pelvis is grossly intact. The hip joint maintains normal alignment. No proximal femoral fracture identified. Soft tissues: Unremarkable. XR/XR hip LT 2-3V wo/w pel* [id number] IMPRESSION: No fracture identified.
--- NOTE | 2022-05-04 16:36 | XRR_ITS ---
PROCEDURE INFORMATION: Exam: XR Cervical Spine Exam date and time: 05/04/2022 4:43 PM Age: 71 years old Clinical indication: Pain and injury or trauma; Fall; Blunt trauma; Neck pain; Patient HX: Neck, lt hip and lt wrist pain, PT fell 6 months ago TECHNIQUE: Imaging protocol: Radiologic exam of the cervical spine. Views: 4 or 5 views. COMPARISON: CR XR cervical spine min 6V [id number] 02/12/2019 10:31 AM FINDINGS: Bones/joints: The cervical spine demonstrates a straightened lordotic curvature. No spondylolisthesis identified. The vertebral bodies maintain normal height. C1 and C2 maintain normal alignment. The base of the odontoid is unremarkable. Multilevel loss of intervertebral disc height with endplate degenerative changes. Multilevel facet arthropathy. Soft tissues: Unremarkable. XR/XR cervical spine 4-5V [id number] IMPRESSION: 1. No vertebral body height loss or traumatic malalignment identified. 2. Multilevel degenerative changes noted in the spine.
== END 2022-05-04 15:39 | disposition home or self-care (01) ==
LOC: RAD 15:42
PROVIDERS: PCP Family Medicine; Visit Provider Family Medicine
DX: M54.2 Cervicalgia (principal); M25.532 Pain in left wrist; M25.552 Pain in left hip
CPT/HCPCS: 72050; 73110; 73502

== ENCOUNTER → 2022-05-14 10:43 | Outpatient (BNVA) | payer MEDICARE, OTHER, SELFPAY | PROVIDERS: PCP Family Medicine; Visit Provider Internal Medicine Pulmonary Disease | DX: J45.41 Moderate persistent asthma with (acute) exacerbation (principal); U09.9 Post COVID-19 condition, unspecified; M35.1 Other overlap syndromes; J82.83 Eosinophilic asthma; Z99.81 Dependence on supplemental oxygen; R76.8 Other specified abnormal immunological findings in serum | CPT/HCPCS: 99214 ==

== ENCOUNTER 2022-05-19 06:00 | Outpatient (RCR) | payer MEDICARE, OTHER, SELFPAY | END 2022-06-18 23:59 | disposition home or self-care (01) | LOC: APT 06:00 | PROVIDERS: PCP Family Medicine; Visit Provider Student in an Organized Health Care Education/Training Program | DX: S82.202D Unspecified fracture of shaft of left tibia, subsequent encounter for closed fracture with routine healing (principal); X58.XXXD Exposure to other specified factors, subsequent encounter | CPT/HCPCS: 97110; 97112; 97140; 97164; 97530 ==

== ENCOUNTER → 2022-06-07 09:23 | Outpatient (BNVA) | payer MEDICARE, OTHER, SELFPAY | PROVIDERS: PCP Family Medicine; Visit Provider Student in an Organized Health Care Education/Training Program | DX: S82.302A Unspecified fracture of lower end of left tibia, initial encounter for closed fracture (principal); X58.XXXA Exposure to other specified factors, initial encounter | CPT/HCPCS: 73610; 99213 ==

== ENCOUNTER 2022-06-09 06:00 | Outpatient (RCR) | payer MEDICARE, OTHER, SELFPAY | END 2022-06-18 23:59 | disposition home or self-care (01) | LOC: APT 06:00 | PROVIDERS: PCP Family Medicine; Visit Provider Family Medicine | DX: M25.552 Pain in left hip (principal) | CPT/HCPCS: 97110; 97161 ==

== ENCOUNTER 2022-06-19 06:00 | Outpatient (RCR) | payer MEDICARE, OTHER, SELFPAY | END 2022-07-18 23:59 | disposition home or self-care (01) | LOC: APT 06:00 | PROVIDERS: PCP Family Medicine; Visit Provider Student in an Organized Health Care Education/Training Program | DX: M25.552 Pain in left hip (principal) | CPT/HCPCS: 97110; 97112; 97530 ==

== ENCOUNTER 2022-06-19 06:00 | Outpatient (RCR) | payer MEDICARE, OTHER, SELFPAY | END 2022-07-18 23:59 | disposition home or self-care (01) | LOC: APT 06:00 | PROVIDERS: PCP Family Medicine; Visit Provider Family Medicine | DX: M25.552 Pain in left hip (principal) | CPT/HCPCS: 97110; 97112 ==

== ENCOUNTER → 2022-06-28 14:48 | Outpatient (BNVA) | payer MEDICARE, OTHER, SELFPAY | PROVIDERS: PCP Family Medicine; Visit Provider Internal Medicine | DX: R76.8 Other specified abnormal immunological findings in serum (principal); M19.90 Unspecified osteoarthritis, unspecified site; M79.89 Other specified soft tissue disorders; D86.9 Sarcoidosis, unspecified | CPT/HCPCS: 80069; 82043; 82306; 82310; 83970; 85025; 99214 ==

== ENCOUNTER 2022-07-19 06:00 | Outpatient (RCR) | payer MEDICARE, OTHER, SELFPAY | END 2022-08-18 23:59 | disposition home or self-care (01) | LOC: APT 06:00 | PROVIDERS: PCP Family Medicine; Visit Provider Family Medicine | DX: M25.552 Pain in left hip (principal) | CPT/HCPCS: 97110 ==

== ENCOUNTER 2022-08-19 06:00 | Outpatient (RCR) | payer MEDICARE, OTHER, SELFPAY | END 2022-09-17 23:59 | disposition home or self-care (01) | LOC: APT 06:00 | PROVIDERS: PCP Family Medicine; Visit Provider Family Medicine | DX: M25.552 Pain in left hip (principal) | CPT/HCPCS: 97110 ==

== ENCOUNTER 2022-08-26 12:03 | Outpatient (CLI) | payer MEDICARE, OTHER, SELFPAY ==
--- NOTE | 2022-08-26 12:19 | XR_ITS ---
WS: [id number] Chest 2 views, 08/26/2022 Clinical Data: Chest pain Comparison: Portable chest, 12/13/2020 Findings: No nodules, masses or effusions are seen. The heart is normal. The pulmonary vascularity is not increased. No pneumonia or pneumothorax is seen. The aortic arch and descending thoracic aorta s how calcification and tortuosity. There are calcified granulomas in both minoo. There is an old compre ssion fracture of T12. XR/XR chest 2V* [id number] Impression: Atherosclerosis
== END 2022-08-26 12:04 | disposition home or self-care (01) ==
PROVIDERS: PCP Family Medicine; Visit Provider Family Medicine
DX: R07.9 Chest pain, unspecified (principal); E03.9 Hypothyroidism, unspecified; Z51.81 Encounter for therapeutic drug level monitoring; R73.09 Other abnormal glucose; R51.9 Headache, unspecified; E55.9 Vitamin D deficiency, unspecified; I70.0 Atherosclerosis of aorta
CPT/HCPCS: 71046; 80053; 80061; 82306; 82550; 83036; 83735; 84439; 84443; 85025; 85651; 86140; 87086

== ENCOUNTER → 2022-09-09 09:31 | Outpatient (BNVA) | payer MEDICARE, OTHER, SELFPAY | PROVIDERS: PCP Family Medicine; Visit Provider Student in an Organized Health Care Education/Training Program | DX: S82.302A Unspecified fracture of lower end of left tibia, initial encounter for closed fracture (principal); X58.XXXA Exposure to other specified factors, initial encounter | CPT/HCPCS: 73610; 99213 ==

== ENCOUNTER → 2022-09-14 08:51 | Outpatient (BNVA) | payer MEDICARE, OTHER, SELFPAY | PROVIDERS: PCP Family Medicine; Visit Provider Nurse Practitioner Family | DX: M25.532 Pain in left wrist (principal); M19.032 Primary osteoarthritis, left wrist | CPT/HCPCS: 73110 ==

== ENCOUNTER 2022-09-20 07:41 | Outpatient (CLI) | payer MEDICARE, OTHER, SELFPAY ==
--- NOTE | 2022-09-20 | ECG_ITS ---
[facility] Test Date: 2022-09-20 Pat Name: Rebecca Olivera Department: Room: Gender: Female [employer]: : 1950 Requested By: Chip Antunez Order Number: [id number] Dalton MD: Alina Campos M.D. Interpretive Statements NAME OF STUDY: LEXISCAN SESTAMIBI STRESS TEST INDICATION: Chest Pain, PROCEDURE: At the baseline, the 68 EKG revealed normal sinus rhythm with some nonspecific T wave changes. The baseline heart was 68 bpm with a blood pressue of 93/39 mm of Hg Lexiscan was infused over a period of 20 seconds. A total of 0.4 milligrams of Lexiscan was infused. The stress phase was continued for a total of 5 minutes. Heart rate at the end of the stress phase was 77 bpm with a blood pressure 89/47 mm of Hg. The EKG at the peak infusion revealed no significant changes. Sestamibi was injected 20 seconds after the Lexiscan infusion. Heart rate at the end of the recovery phase was 75 bpm with a blood pressure of 97/44 mm of Hg. CONCLUSION: 1. No significant EKG changes with the LexiScan infusion 2. No LexiScan induced chest pain or cardiac arrhythmia 3. Normal blood pressure and heart rate response 4. Sestamibi/sestamibi perfusion scan pending; see separate report. Electronically Signed On 09-23-2022 17:45:29 CDT by Alina Campos M.D. [email or web address]
[2022-09-20 08:27] VITALS: BMI 49.1
--- NOTE | 2022-09-20 08:28 | NMCV_ITS ---
NM lb perf SPECT r/s* [id number] Rebecca Olivera Age: 71 Gender: F : 1950 Exam Date: 09/20/2022 08:28 Ordering Phys: Chip Savage MD Technologist: SANDER Padron Exam Location: [facility] Indications: Chest Pain STRESS TEST Please see separate stress test report in [facility] for full findings IMAGE PROTOCOL Rest/Stress 1 Lexiscan Day Radiopharmaceutical Dose (mCi) Administration Site Administered by Rest: Tc-99m 11.0 IV SANDER Malik Sestamibi Stress:Tc-99m 33.0 IV SANDER Padron Sestamibi Rest: 20-Sep-2022 60 Discovery 630 Stress: 20-Sep-2022 30 Discovery 630 0.4mg Lexiscan. 0.4mg Lexiscan. Images obtained in supine and prone position. SPECT RESULTS Technical Quality: Excellent Raw Data Analysis: Normal Image Corrections: No attenuation or motion correction applied Summed Stress Score: 0 Summed Rest Score: 7 Summed Difference Score: 0 PERFUSION FINDINGS Diarrhea of minimal to moderately decreased tracer uptake was noted in the mid and apical inferior, mid inferolateral, apical lateral and LV apex. No significant reversibility was noted in these regions. FUNCTIONAL RESULTS (calculated via Gated SPECT) Stress Image LV EF (%): 65 Stress EDV (mL):144 TID: 0.96 Stress ESV (mL):51 FUNCTIONAL FINDINGS: Segmental wall motion analysis revealing no gross wall motion normalities IMPRESSIONS 1. Myocardial perfusion imaging revealing moderate area of persistent decreased tracer uptake in the inferior and inferolateral regions suggesting myocardial scarring versus attenuation artifact 2. Normal LV ejection fraction 65%. 3. LV wall motion analysis revealing no gross wall motion abnormalities. 4. Normal LV volume. Comparison with the previous study is difficult because of the differences in technical quality Dr Alina Campos MD [facility] (Electronically Signed) Final Date: 20 September 2022 17:27 S
[2022-09-20] MEDS: regadenoson 0.4 Mg/5 ml Syringe IVP (09:45)
[2022-09-20 10:02] VITALS: BP 98/44; PULSE 75
== END 2022-09-20 07:42 | disposition home or self-care (01) ==
LOC: CDL 07:42
PROVIDERS: PCP Family Medicine; Visit Provider Family Medicine
DX: R07.9 Chest pain, unspecified (principal)
CPT/HCPCS: 36415; 78452; 93017; 96374; A9500; J2785

== ENCOUNTER 2022-10-04 06:00 | Outpatient (RCR) | payer MEDICARE, OTHER, SELFPAY | END 2022-10-18 23:59 | disposition home or self-care (01) | LOC: APT 06:00 | PROVIDERS: Visit Provider Nurse Practitioner Family | DX: R29.6 Repeated falls (principal) | CPT/HCPCS: 97110; 97112; 97162 ==

== ENCOUNTER 2022-10-19 06:00 | Outpatient (RCR) | payer MEDICARE, OTHER, SELFPAY | END 2022-11-18 23:59 | disposition home or self-care (01) | LOC: APT 06:00 | PROVIDERS: PCP Family Medicine; Visit Provider Nurse Practitioner Family | DX: R29.6 Repeated falls (principal) | CPT/HCPCS: 97110; 97112; 97530 ==

== ENCOUNTER → 2022-10-25 14:52 | Outpatient (BNVA) | payer MEDICARE, OTHER, SELFPAY | PROVIDERS: PCP Family Medicine; Visit Provider Internal Medicine | DX: R76.8 Other specified abnormal immunological findings in serum (principal); M19.90 Unspecified osteoarthritis, unspecified site; M79.89 Other specified soft tissue disorders; Z79.899 Other long term (current) drug therapy | CPT/HCPCS: 99214 ==

== ENCOUNTER → 2022-11-11 12:44 | Outpatient (BNVA) | payer MEDICARE, OTHER, SELFPAY | PROVIDERS: PCP Family Medicine; Visit Provider Internal Medicine Pulmonary Disease | DX: J45.41 Moderate persistent asthma with (acute) exacerbation (principal); U09.9 Post COVID-19 condition, unspecified; M35.1 Other overlap syndromes | CPT/HCPCS: 99214 ==

== ENCOUNTER 2022-11-19 06:00 | Outpatient (RCR) | payer MEDICARE, OTHER, SELFPAY | END 2022-11-24 23:59 | disposition home or self-care (01) | LOC: APT 06:00 | PROVIDERS: PCP Family Medicine; Visit Provider Nurse Practitioner Family | DX: R29.6 Repeated falls (principal) | CPT/HCPCS: 97110; 97530 ==

== ENCOUNTER 2022-12-01 09:05 | Outpatient (CLI) | payer MEDICARE, OTHER, SELFPAY ==
--- NOTE | 2022-12-01 09:30 | USCV_ITS ---
Rebecca Olivera Age: 72 Gender: F : 1950 Exam Date: 12/01/2022 09:13 Ordering Phys: Chip Savage MD Technologist: Hien [employer] Assistant Exam Location: [facility] [place] Indication: LEG PAIN AND SWELLING RIGHT LEFT Brachial 114.00 mmHg Brachial 108.00 mmHg Pressure (mmHg) Waveform Pressure (mmHg) Waveform 131.00 TERRAZZO LAYER 139.00 122.00 DPA 130.00 1.15 Ankle/Brachial Index 1.22 137.00 Pre-Exercise Toe Pressure 111.00 1.20 Pre-Exercise Toe/Brachial Index 0.97 FINDINGS Resting LUIS 1.15 on the right side and 1.22 on the left side. Resting TBI of 1.20 on the right side and 0.97 on the left CONCLUSIONS Normal resting ABIs and TBIs bilaterally No significant arterial obstruction, based on the above findings Dr Alina Campos MD [facility] (Electronically Signed) Final Date: 01 December 2022 10:03 S
== END 2022-12-01 09:06 | disposition home or self-care (01) ==
PROVIDERS: PCP Family Medicine; Visit Provider Family Medicine
DX: I73.9 Peripheral vascular disease, unspecified (principal); M79.605 Pain in left leg; M79.604 Pain in right leg; M79.89 Other specified soft tissue disorders
CPT/HCPCS: 93922

== ENCOUNTER 2022-12-08 09:24 | Outpatient (CLI) | payer MEDICARE, OTHER, SELFPAY ==
--- NOTE | 2022-12-08 10:15 | USCV_ITS ---
JoselinPhue Age: 72 Gender: F : 1950 Exam Date: 12/08/2022 10:27 Ordering Phys: Chip Savage MD Technologist: Hilaria Manzano [place]am Location[place] [facility] [place] Indication: SYSTOLIC MURMUR BP: / HR: 73 Rhythm: Sinus Technical Quality: Adequate MEASUREMENTS (Male / Female) Normal Values 2D ECHO LV Diastolic Diameter PLAX 4.6 cm 4.2 - 5.9 / 3.9 - 5.3 cm LV Systolic Diameter PLAX 3.4 cm LV Chamber Size 4.0 cm IVS Diastolic Thickness 1.2 cm 0.6 - 1.0 / 0.6 - 0.9 cm IVS Systolic Thickness 1.6 cm LVPW Diastolic Thickness 1.3 cm 0.6 - 1.0 / 0.6 - 0.9 cm LVPW Systolic Thickness 2.1 cm RV Chamber Size 4.0 cm LVOT Diameter 2.1 cm LV Ejection Fraction 2D Teich 51.6 % LV Ejection Fraction MOD 2C 47.2 % LV Ejection Fraction 2C AL 51.1 % LA Diameter 3.7 cm LA Width 2.9 cm LA Height 3.9 cm RA Width 3.7 cm RA Height 4.0 cm Aorta at Sinotubular Diameter 2.9 cm IVC Diameter 1.5 cm M-MODE Aortic Annulus Diameter 3.2 cm LA Ao Ratio MM 1.5 MV E Point Septal Separation 0.8 cm DOPPLER AV Peak Velocity 233.0 cm/s LVOT Peak Velocity 85.0 cm/s AV Area Cont Eq vti 1.1 cm squared AV Area Cont Eq pk 1.2 cm squared MV Area PHT 3.3 cm squared Mitral E to A Ratio 0.9 MV E' Velocity 50.5 cm/s Mitral E to MV E' Ratio 8.2 Mitral E to LV E' Lateral Ratio 7.6 Mitral E to LV E' Septal Ratio 8.9 TR Peak Velocity 179.8 cm/s TR Peak Gradient 12.9 mmHg TR Mean Velocity 160.5 cm/s TR Mean Gradient 10.9 mmHg TR Velocity Time Integral 64.8 cm TV Peak E Velocity 84.0 cm/s Right Atrial Pressure 3.0 mmHg Pulmonary Artery Systolic Pressu 15.9 mmHg RV Acceleration Time 0.2 s RV Ejection Time 0.4 s RV AcT/ET 0.6 FINDINGS Left Ventricle Left ventricle is normal in size. LV systolic function is normal with EF 50 to 55%. No regional wall motion abnormalities are seen. Right Ventricle Normal in size and function Right Atrium Normal in size Left Atrium Normal in size Mitral Valve Structurally normal mitral valve. Mild mitral regurgitation Aortic Valve Structurally normal aortic valve. Mild aortic stenosis with aortic valve area 1.2 cm2 and mean gradient of 12 mmHg. Tricuspid Valve Mild tricuspid regurgitation. Pulmonary artery systolic pressure is normal. Pulmonic Valve Not well visualized Pericardium Normal Aorta Normal in size IVC Appears to be normal CONCLUSIONS LV systolic function is normal with EF 50-55%. Mild mitral regurgitation. Mild aortic stenosis. Mild tricuspid regurgitation Compared to prior echocardiogram from 12/13/2020, no significant changes are seen Luciano Jensen MD (Electronically Signed) Final Date: 12 December 2022 14:00 S
== END 2022-12-08 09:25 | disposition home or self-care (01) ==
PROVIDERS: PCP Family Medicine; Visit Provider Family Medicine
DX: R01.1 Cardiac murmur, unspecified (principal); I34.0 Nonrheumatic mitral (valve) insufficiency; I35.0 Nonrheumatic aortic (valve) stenosis; I07.1 Rheumatic tricuspid insufficiency
CPT/HCPCS: 93306

== ENCOUNTER → 2022-12-15 15:59 | Outpatient (BNVA) | payer MEDICARE, OTHER, SELFPAY | PROVIDERS: PCP Family Medicine; Visit Provider Otolaryngology | DX: R49.9 Unspecified voice and resonance disorder (principal); T17.908A Unspecified foreign body in respiratory tract, part unspecified causing other injury, initial encounter; J38.7 Other diseases of larynx; E66.01 Morbid (severe) obesity due to excess calories; Z68.43 Body mass index [BMI] 50.0-59.9, adult; X58.XXXA Exposure to other specified factors, initial encounter | CPT/HCPCS: 31575; 99203; 99204 ==

== ENCOUNTER → 2022-12-16 11:20 | Outpatient (BNVA) | payer MEDICARE, OTHER, SELFPAY | PROVIDERS: PCP Family Medicine; Visit Provider Student in an Organized Health Care Education/Training Program | DX: S82.302D Unspecified fracture of lower end of left tibia, subsequent encounter for closed fracture with routine healing; X58.XXXD Exposure to other specified factors, subsequent encounter | CPT/HCPCS: 73610; 99213 ==

== ENCOUNTER 2023-01-05 13:10 | Outpatient (CLI) | payer MEDICARE, OTHER, SELFPAY ==
[2023-01-05 14:02] LABS: Basophils # 0.1 10^3/uL (0.0-0.1); Basophils % 0.9 %; Eosinophils % 0.4 %; Hematocrit 37.3 % (36-47); Lymphocytes # 1.3 10^3/uL (0.8-4.8); Lymphocytes % 18.9 %; Mean Corpuscular HGB Conc 32.7 g/dL (30-55); Mean Corpuscular Hemoglobin 31.9 pg (27-33); Mean Corpuscular Volume 97.6 fl (85-98); Mean Platelet Volume 10.2 fL (7.4-10.4); Monocytes # 0.6 10^3/uL (0.2-0.9); Monocytes % 8.3 %; Neutrophils # 5.01 10^3/uL (1.8-7.7); Neutrophils % 71.4 %; Nucleated Red Blood Cells % 0 %; Platelet Count 222 10^3/cmm (157-399); Red Blood Count 3.82 10^6/uL (3.85-5.65); Red Cell Distribution Width 14.9 % (12.1-15.1); White Blood Count 7.02 10^3/uL (3.29-11.43)
[2023-01-05 14:25] LABS: Creatinine Urine, Random 25 mg/dL (28-217); Microalbum Creatinine Ratio Ur 40 mg/dL (0-20); Microalbumin Random Urine 1 ug/dL (0-20)
[2023-01-05 14:35] LABS: Calcium 8.8 mg/dL (8.5-10.5); Parathyroid Hormone 149.4 pg/mL (15-65)
[2023-01-05 14:43] LABS: 25 Hydroxy Vitamin D 43 ng/mL (30-100); Albumin Level 3.8 g/dL (3.5-5.2); Anion Gap 14.1 (5-19); Blood Urea Nitrogen 20 mg/dL (8-23); Calcium 8.8 mg/dL (8.5-10.5); Carbon Dioxide 31 mmol/L (22-29); Chloride 101 mmol/L (98-107); Glucose 103 mg/dL (65-115); Potassium 4.1 mmol/L (3.5-5.1); Sodium 142 mmol/L (136-145)
== END 2023-01-05 13:11 | disposition home or self-care (01) ==
PROVIDERS: PCP Family Medicine; Visit Provider Internal Medicine
DX: N18.31 Chronic kidney disease, stage 3a (principal); Z79.899 Other long term (current) drug therapy
CPT/HCPCS: 36415; 80069; 82044; 82306; 82310; 83970; 85025

== ENCOUNTER 2023-01-20 14:43 | Outpatient (CLI) | payer MEDICARE, OTHER, SELFPAY ==
--- NOTE | 2023-01-20 14:50 | XRR_ITS ---
PROCEDURE INFORMATION: Exam: XR Left Hip Exam date and time: 01/20/2023 2:58 PM Age: 72 years old Clinical indication: Hip pain; Left hip; Additional info: Left hip pain TECHNIQUE: Imaging protocol: Radiologic exam of the left hip. Views: 2 or 3 views hip with pelvis when performed. COMPARISON: CR XR hip LT 2-3V wo/w pel* [id number] 05/04/2022 4:43 PM FINDINGS: Bones/joints: Unremarkable. No acute fracture. Soft tissues: Unremarkable. XR/XR hip LT 2-3V wo/w pel* [id number] IMPRESSION: No acute findings.
== END 2023-01-20 14:44 | disposition home or self-care (01) ==
LOC: RAD 14:45
PROVIDERS: PCP Family Medicine; Visit Provider Family Medicine
DX: M25.552 Pain in left hip (principal); E03.9 Hypothyroidism, unspecified; E53.8 Deficiency of other specified B group vitamins
CPT/HCPCS: 73502; 82607; 83036; 84439; 84443

== ENCOUNTER 2023-02-07 06:00 | Outpatient (RCR) | payer MEDICARE, OTHER, SELFPAY | END 2023-02-17 23:59 | disposition home or self-care (01) | LOC: APT 06:00 | PROVIDERS: Visit Provider Family Medicine | DX: M77.8 Other enthesopathies, not elsewhere classified (principal) | CPT/HCPCS: 97110; 97112; 97162; 97530 ==

== ENCOUNTER 2023-02-18 06:00 | Outpatient (RCR) | payer MEDICARE, OTHER, SELFPAY | END 2023-03-20 23:59 | disposition home or self-care (01) | LOC: APT 06:00 | PROVIDERS: PCP Family Medicine; Visit Provider Family Medicine | DX: M76.899 Other specified enthesopathies of unspecified lower limb, excluding foot (principal) | CPT/HCPCS: 97110; 97112; 97530 ==

== ENCOUNTER → 2023-02-21 13:09 | Outpatient (BNVA) | payer MEDICARE, OTHER, SELFPAY | PROVIDERS: PCP Family Medicine; Visit Provider Internal Medicine | DX: E03.9 Hypothyroidism, unspecified (principal); R76.8 Other specified abnormal immunological findings in serum; M19.90 Unspecified osteoarthritis, unspecified site; M79.89 Other specified soft tissue disorders; T78.40XA Allergy, unspecified, initial encounter | CPT/HCPCS: 99214 ==

== ENCOUNTER 2023-02-23 10:50 | Outpatient (CLI) | payer MEDICARE, OTHER, SELFPAY ==
--- NOTE | 2023-02-23 10:55 | MM_ITS ---
WS: [id number] Bilateral screening 3D tomosynthesis digital mammogram, 02/23/2023 Clinical Data: Z12.39 - Encounter for other screening for malignant neop... Comparison: 07/01/2020 Findings: The breast parenchymal pattern shows fat replacement. No spiculated masses or clustered calcification s are seen. There are no secondary signs of carcinoma. Impression: 1. Negative bilateral mammogram unchanged. 2. Recommend annual screening mammograms. MM/[place] [id number] BIRADS: 1-Negative FOLLOW UP: 1 Year Follow-up The CAD credit rating checker was used.
== END 2023-02-23 10:51 | disposition home or self-care (01) ==
LOC: RAD 10:51
PROVIDERS: PCP Family Medicine; Visit Provider Family Medicine
DX: Z12.31 Encounter for screening mammogram for malignant neoplasm of breast
CPT/HCPCS: 77063; 77067

== ENCOUNTER 2023-02-24 11:03 | Outpatient (CLI) | payer MEDICARE, OTHER, SELFPAY ==
--- NOTE | 2023-02-24 12:05 | XR_ITS ---
WS: [id number] Cervical spine, 4 views, 02/24/2023 Clinical Data: Cervical radiculopathy, neck pain Comparison: Cervical spine, 05/04/2022 Findings: No compression fractures are seen. There is disc space narrowing at C2-C3, C3-C4, C4-C5, C5 -C6, C6-C7 and C7-T1. There our anterior osteophytes from C3-C7. There are posterior osteophytes at m ost of these levels. There is multilevel facet joint arthritis. There is loss of the normal lordotic curvature. There is no prevertebral soft tissue swelling. The odontoid is unremarkable. The soft tiss ues of the neck and the lung apices are normal. Impression: Multilevel disc narrowing, osteoarthritis and facet joint arthritis
== END 2023-02-24 11:04 | disposition home or self-care (01) ==
PROVIDERS: PCP Family Medicine; Visit Provider Internal Medicine
DX: M47.892 Other spondylosis, cervical region (principal); M54.2 Cervicalgia
CPT/HCPCS: 72040

== ENCOUNTER 2023-03-18 10:33 | Outpatient (CLI) | payer MEDICARE, OTHER, SELFPAY ==
--- NOTE | 2023-03-18 10:39 | XRR_ITS ---
PROCEDURE INFORMATION: Exam: XR Right Clavicle, Complete Exam date and time: 03/18/2023 11:00 AM Age: 72 years old Clinical indication: Pain; Shoulder; Right; Additional info: Right shoulder pain TECHNIQUE: Imaging protocol: Radiologic exam of the right clavicle. Complete exam. Views: Any number of views. COMPARISON: [place] [id number] 03/18/2023 11:00 AM FINDINGS: Bones/joints: No fracture or malalignment. Soft tissues: No acute findings. XR/[place] [id number] IMPRESSION: No acute findings.
--- NOTE | 2023-03-18 10:39 | XRR_ITS ---
PROCEDURE INFORMATION: Exam: XR Right Ribs with PA Chest Exam date and time: 03/18/2023 11:00 AM Age: 72 years old Clinical indication: Other: Right rib pain TECHNIQUE: Imaging protocol: Radiologic exam of the right ribs with PA chest. Views: 3 views COMPARISON: CR XR chest 2V* [id number] 08/26/2022 12:25 PM FINDINGS: Lungs: No focal consolidation. Bibasilar atelectasis. Pleural spaces: No pleural effusion. No pneumothorax. Heart/Mediastinum: No cardiomegaly. Bones/joints: No displaced rib fractures. XR/XR ribs RT mn 3V w CXR1V [id number] IMPRESSION: No acute findings.
--- NOTE | 2023-03-18 10:39 | XRR_ITS ---
PROCEDURE INFORMATION: Exam: XR Right Foot Exam date and time: 03/18/2023 11:00 AM Age: 72 years old Clinical indication: Toe pain after fall TECHNIQUE: Imaging protocol: Radiologic exam of the right foot. Views: 3 or more views. COMPARISON: US CV ankle brachial index [id number] 12/01/2022 9:13 AM FINDINGS: Bones/joints: Apparent nondisplaced or minimally displaced fracture at the medial base of the great toe proximal phalanx. Soft tissues: Soft tissue swelling overlying. XR/XR foot RT min 3V* [id number] IMPRESSION: Fracture base of great toe proximal phalanx.
--- NOTE | 2023-03-18 10:39 | XRR_ITS ---
PROCEDURE INFORMATION: Exam: XR Right Humerus Exam date and time: 03/18/2023 11:00 AM Age: 72 years old Clinical indication: Pain; Lower or forearm and upper arm; Right; Additional info: Arm pain right TECHNIQUE: Imaging protocol: Radiologic exam of the right humerus. Views: 2 or more views. COMPARISON: [place] [id number] 03/18/2023 11:00 AM FINDINGS: Bones/joints: No fracture or dislocation. Mild degenerative changes Soft tissues: No acute findings. XR/[place] [id number] IMPRESSION: No acute findings.
--- NOTE | 2023-03-18 10:39 | XRR_ITS ---
PROCEDURE INFORMATION: Exam: XR Right Shoulder Exam date and time: 03/18/2023 11:00 AM Age: 72 years old Clinical indication: Pain; Shoulder; Right; Additional info: Right shoulder pain TECHNIQUE: Imaging protocol: Radiologic exam of the right shoulder. Views: 2 or more views. COMPARISON: [place] [id number] 03/18/2023 11:00 AM FINDINGS: Bones/joints: No fracture or dislocation. Mild degenerative changes. Soft tissues: No acute findings. XR/XR shoulder RT min 2V* [id number] IMPRESSION: No acute findings.
== END 2023-03-18 10:34 | disposition home or self-care (01) ==
LOC: RAD 10:36
PROVIDERS: PCP Family Medicine; Visit Provider Family Medicine
DX: S92.411A Displaced fracture of proximal phalanx of right great toe, initial encounter for closed fracture (principal); W19.XXXA Unspecified fall, initial encounter; M25.511 Pain in right shoulder; M79.601 Pain in right arm; R07.81 Pleurodynia
CPT/HCPCS: 71101; 73000; 73030; 73060; 73630

== ENCOUNTER → 2023-04-12 12:53 | Outpatient (BNVA) | payer MEDICARE, OTHER, SELFPAY | PROVIDERS: PCP Family Medicine; Visit Provider Podiatrist Foot & Ankle Surgery | DX: S92.414A Nondisplaced fracture of proximal phalanx of right great toe, initial encounter for closed fracture; W19.XXXA Unspecified fall, initial encounter | CPT/HCPCS: 28490; 73630; 99204 ==

== ENCOUNTER → 2023-04-14 12:04 | Outpatient (BNVA) | payer MEDICARE, OTHER, SELFPAY | PROVIDERS: PCP Family Medicine; Referring Provider Family Medicine; Visit Provider Anesthesiology Pain Medicine | DX: M54.12 Radiculopathy, cervical region (principal); M25.511 Pain in right shoulder; M50.90 Cervical disc disorder, unspecified, unspecified cervical region | CPT/HCPCS: 73030; 99204 ==

== ENCOUNTER → 2023-04-18 13:52 | Outpatient (BNVA) | payer MEDICARE, OTHER, SELFPAY | PROVIDERS: PCP Family Medicine; Visit Provider Anesthesiology Pain Medicine | DX: M79.18 Myalgia, other site (principal); M54.9 Dorsalgia, unspecified; M25.511 Pain in right shoulder; M50.90 Cervical disc disorder, unspecified, unspecified cervical region; M54.12 Radiculopathy, cervical region | CPT/HCPCS: 20553; 99214; J1030; J3490 ==

== ENCOUNTER 2023-04-27 13:45 | Outpatient (CLI) | payer MEDICARE, OTHER, SELFPAY ==
--- NOTE | 2023-04-27 14:00 | XR_ITS ---
WS: [id number] SCREENING DEXA SCAN [facility] CLINICAL INFORMATION: History of fractures with falls COMPARISON: 2018 FINDINGS: The L1-L4 bone mineral density measures 1.147 g/cm2. This corresponds to a T score score of -0.3 and Z score of 0.3. Left femoral neck bone mineral density measures 0.778 g/cm2. This corresponds to a T score of -1.8 an d Z score of -1.0. Right femoral neck bone mineral density measures 0.782 g/cm2. This corresponds to a T score -1.8of an d Z score of -0.9. Mean femoral neck bone mineral density measures 0.780 g/cm2. This corresponds to a T score of -1.8 an d Z score of -0.9. IMPRESSION: Normal bone mineralization lumbar spine. Osteopenia femoral necks. Patient's FRAX calculated 10 year probability for major osteoporotic fracture is 31.1% and osteoporot ic hip fracture is 17.4%. Bone mineral density lumbar spine decreased -7.6% Bone mineral density femoral necks decreased -15.9%
== END 2023-04-27 13:46 | disposition home or self-care (01) ==
LOC: RAD 13:46
PROVIDERS: PCP Family Medicine; Visit Provider Family Medicine
DX: Z13.820 Encounter for screening for osteoporosis (principal); Z78.0 Asymptomatic menopausal state; M85.852 Other specified disorders of bone density and structure, left thigh; M85.851 Other specified disorders of bone density and structure, right thigh; Z87.81 Personal history of (healed) traumatic fracture
CPT/HCPCS: 77080

== ENCOUNTER → 2023-04-29 10:23 | Outpatient (BNVA) | payer MEDICARE, OTHER, SELFPAY | PROVIDERS: PCP Family Medicine; Referring Provider Family Medicine; Visit Provider Student in an Organized Health Care Education/Training Program | DX: S49.91XA Unspecified injury of right shoulder and upper arm, initial encounter; S42.101A Fracture of unspecified part of scapula, right shoulder, initial encounter for closed fracture; W19.XXXA Unspecified fall, initial encounter; S42.91XA Fracture of right shoulder girdle, part unspecified, initial encounter for closed fracture | CPT/HCPCS: 73030 ==

== ENCOUNTER 2023-04-29 11:15 | Emergency (ER) | payer MEDICARE, OTHER, SELFPAY ==
[2023-04-29 11:40] VITALS: BP 139/80; PULSE 88; RESP 16; TEMP 36.6; O2SAT 96
--- NOTE | 2023-04-29 11:51 | CT_ITS ---
WS: [id number] NONCONTRAST CT BONY PELVIS TECHNIQUE: Noncontrast CT bony pelvis with coronal and sagittal reformatted images. CLINICAL INFORMATION: Fall, pelvic pain COMPARISON: None. DLP: 2354.[address] scans at [facility] use at least one of these dose optimization techniques: automated e xposure control; mA and/or kV adjustment per patient size (includes targeted exams where dose is matc hed to clinical indication); or iterative reconstruction. FINDINGS: Osteopenia. Mild lumbar curve. Disc space narrowing lower lumbar spine with vacuum disc phenomenon. S igmoid diverticulosis. Moderate degenerative narrowing both hips. No acute hip fractures. Normal pubi c rami. Sacral ala normal in appearance. Normal iliac wings. Normal midline sacrum. Normal sacrococcy geal junction. Chronic appearing callus formation and hypertrophic changes anteriorly in the sacrum a t S3-4. No acute appearing sacral fractures. IMPRESSION: No acute fractures
--- NOTE | 2023-04-29 11:51 | CT_ITS ---
WS: [id number] CT LUMBAR SPINE TECHNIQUE: Noncontrast CT of the lumbar spine with coronal and sagittal reformatted images. CLINICAL INFORMATION: fall COMPARISON: None. DLP: 2354.[address] scans at [facility] use at least one of these dose optimization techniques: automated e xposure control; mA and/or kV adjustment per patient size (includes targeted exams where dose is matc hed to clinical indication); or iterative reconstruction. FINDINGS: Advanced spondylitic changes lumbar spine with vacuum disc phenomenon and disc space narrowing throug hout the lumbar spine. Chronic appearing biconcave compression T12 vertebral body with anterior wedgi ng. This is unchanged since 2017 with mild retropulsion and mild central canal stenosis. Advanced disc space narrowing L2-L3 L3-L4 and L4-L5 with endplate sclerosis and subchondral cystic ch anges. No acute appearing compression fractures. Anterior hypertrophic changes. Mild lumbar curve. No high-grade central canal stenosis. L1-L2: Normal. L2-L3: Vacuum disc phenomenon. Mild facet arthropathy. Slight narrowing of the LEFT subarticular rece ss. Mild LEFT foraminal narrowing. L3-L4: Disc osteophytic ridging. Narrowing of the RIGHT subarticular recess. Mild RIGHT foraminal remedios rowing. Moderate facet arthropathy. L4-L5: Disc osteophytic ridging. Narrowing of the subarticular recess bilaterally RIGHT greater than LEFT. Moderate facet arthropathy. Moderate RIGHT and mild LEFT foraminal narrowing. L5-S1: Shallow LEFT paracentral protrusion. Spinal canal is patent. Advanced facet arthropathy. Sushma en are patent. Visualized pelvic bony structures: Normal. Paravertebral soft tissues: Normal. IMPRESSION: 1. Chronic compression fracture T12 unchanged since 2017 2. No acute fractures. 3. Advanced spondylitic changes lumbar spine
--- NOTE | 2023-04-29 11:51 | CT_ITS ---
WS: [id number] CT HEAD TECHNIQUE: Noncontrast CT of the head obtained from the skullbase to the vertex. CLINICAL INFORMATION: fall, head injury COMPARISON: None. DLP: 1528.[address] scans at [facility] use at least one of these dose optimization techniques: automated e xposure control; mA and/or kV adjustment per patient size (includes targeted exams where dose is matc hed to clinical indication); or iterative reconstruction. FINDINGS: No evidence of intracranial hemorrhage or mass effect. Ventricular system and basal cisterns are acuna nt. Mild small vessel changes with moderate parenchymal volume loss. No extra-axial fluid collections . No evidence of mass or mass effect. Intracranial vascular calcification. Trace mucosal thickening in the paranasal sinuses. Mastoid air cells are well aerated. IMPRESSION: 1. No evidence of intracranial hemorrhage or mass effect. 2. No acute intracranial findings.
--- NOTE | 2023-04-29 11:51 | CT_ITS ---
WS: [id number] CT CERVICAL TRAUMA TECHNIQUE: Noncontrast CT of the cervical spine with coronal and sagittal reformatted images. CLINICAL INFORMATION: fall, neck pain COMPARISON: None. DLP: 1528.[address] scans at [facility] use at least one of these dose optimization techniques: automated e xposure control; mA and/or kV adjustment per patient size (includes targeted exams where dose is matc hed to clinical indication); or iterative reconstruction. FINDINGS: Osteopenia. Moderate spondylitic changes. Straightening normal cervical lordosis. Disc space narrowin g throughout the cervical spine with anterior hypertrophic changes. Normal craniocervical junction. N ormal C1-C2 articulation. Dens is normal in appearance. Normal occipital condyles. No high-grade spin al canal narrowing. Normal C1 ring. No evidence of acute fracture or dislocation. Normal prevertebral soft tissues. Mastoids air cells are well aerated. IMPRESSION: No evidence of acute fracture or dislocation.
--- NOTE | 2023-04-29 13:21 | ED_ITS ---
HPI - Fall General: Chief Complaint: Fall Stated Complaint: fall, headache and butt pain Time Seen by Provider: 04/29/23 13:12 Source: patient Mode of arrival: wheelchair Limitations: no limitations History of Present Illness: Patient is a nice 72-year-old male presents to ED today with presumably her significant other here for evaluation following a fall. Patient was seeing Dr. Montgomery earlier today in regards to right shoulder pain from a fall back in February when she mentioned another fall that she took 2 days ago. She was reportedly ambulating up a wheelchair ramp when she tripped and fell. Patient states she struck the posterior aspect of her scalp. Unknown LOC. And feels like she bruised her hips. She states she has been ambulatory since the fall. She has continued to have some mild discomforts in her hips and some intermittent headaches. She has no complaints of neck or back pain. She reportedly has no other injuries. Tetanus is up-to-date. She is not on anticoagulation. MD complaint: fall Onset (ago): day(s) (2 days ago) Fall from: standing Fall witnessed: yes, by family Place fall occurred: home Loss of consciousness: Unsure Prolonged down time: no Symptoms prior to fall: none Context: tripped/slipped Location of injury: head Location of injury - extremities: Bilateral: thigh (hips) Severity: mild Associated symptoms-after fall: Reports no associated symptoms and headache(s); Denies abdominal pain, chest pain, hematuria, lightheadedness or neck pain Review of Systems Eyes: Denies: change in vision, blurry vision, photophobia, eye discharge, floaters or seeing flashes ENMT: Denies: throat pain, odynophagia, ear or mastoid pain, ear discharge, nasal discharge, epistaxis or sinus pain Card: Denies: chest pain, palpitations, lightheadedness, syncope or pre- syncope Resp: Denies: dyspnea or pain on inspiration GI: Denies: abdominal pain : Denies: flank pain or hematuria Musc: Reports: joint pain (bilateral hip pain); Denies: neck pain, back pain, extremity pain, extremity swelling, joint swelling, joint redness, joint warmth, limited range of motion, muscle weakness or deformity Neuro: Reports: headache(s); Denies: numbness in extremities, weakness in extremities, sensory changes or dizziness PFS ED PFSH: Medical History Closed fracture of left distal tibia Tibia/fibula fracture Surgery with plates placed - 11/2021 - [place] MCTD (mixed connective tissue disease) FOUZIA (acute kidney injury) Asthma exacerbation Pneumonia due to COVID-19 virus Asthma Hypertension Hypothyroidism Arthritis Anti-COST COORDINATOR antibodies present CKD (chronic kidney disease) MARCELLO positive Lupus Gout Surgical History History of surgery on lower extremity 11/2021 - left tib/fib fracture s/p plate/screw placement H/O tubal ligation (~1971) Hx of hysterectomy (~1983) Hx of bilateral oophorectomy (~2003) Hx of eye surgery (~2014) H/O abdominal surgery (~2004) Family History Grandfather CAD (coronary artery disease) Social History Smoking and tobacco/nicotine status: never used tobacco/nicotine Alcohol intake: current Alcohol intake frequency: holidays/special occasions only Substance/Drug Use: never Physical Exam Const: COMMON NORMALS: no acute distress, patient oriented x3, no limitations, alert and well nourished GENERAL APPEARANCE: cooperative NUTRITIONAL APPEARANCE: obese morbidly obese (BMI is 48.4) ORIENTATION/CONSCIOUSNESS: Yes awake, Yes oriented to person, Yes oriented to place and Yes oriented to time HENMT: COMMON NORMALS: normocephalic and TM's normal bilaterally HEAD & SCALP: normal to inspection, normocephalic and abrasion (small posterior scalp abrasion); no Williamson's sign, no hematoma and no raccoon eyes FACE & SINUS: normal facial exam TYMPANIC MEMBRANE: TM's normal bilaterally MOUTH: other (no intraoral injuries noted) Eye: COMMON NORMALS: Equal, round and reactive pupils present and EOMs intact bilaterally GENERAL EYE: appearance normal, both eyes and all related structures and normal light reflex PUPIL: Yes Equal, round and reactive pupils present DIRECT OPHTHALMOSCOPY: Yes normal light reflex Neck/C-Spine: COMMON NORMALS: full ROM GENERAL: Yes normal visual inspection CERVICAL SPINE: Yes cervical ROM normal, No pain with cervical ROM, No Cervical spine tenderness, No step off deformity and No Paracervical muscle tenderness Chest: COMMONS NORMALS: normal inspection of the chest and normal palpation of entire chest wall Resp: COMMON NORMALS: normal respiratory effort and clear to auscultation bilaterally AUSCULTATION: clear to auscultation bilaterally Cardio: COMMON NORMALS: regular rate and regular rhythm RATE: regular rate RHYTHM: regular rhythm GI: COMMON NORMALS: Normal to inspection, nondistended, normoactive bowel sounds present, Soft to palpation, non-tender, No hepatosplenomegaly present and no masses INSPECTION: Yes normal to inspection and No abdominal wall ecchymosis AUSCULTATION: Yes normoactive bowel sounds PALPATION: Yes Soft to palpation and Yes No hepatosplenomegaly present Back/Pelvis: COMMON NORMALS: thoracic and lumbar spine normal to inspection, no thoracic nor lumbar tenderness and thoraco-lumbar ROM normal Extremity: COMMON NORMALS: normal to inspection and full ROM GENERAL: Yes normal exam except as noted RIGHT LOWER EXTREMITY: Yes hip joint Right hip: Y es palpation (TTP posteriorly), Yes ROM (normal) and Yes neurovascular exam (normal) LEFT LOWER EXTREMITY: Yes hip joint Left hip: Yes palpation (TTP posteriorly), Yes ROM (normal) and Yes neurovascular exam (normal) Neuro: BRET COMA SCALE: document GCS findings Bret coma scale eye opening: Spontaneous Bret coma scale verbal response: Orientated Bret coma scale motor response: Obey commands [place] coma scale total score: 15 COMMON NORMALS: patient oriented x3, CN's II-XII intact bilaterally, moves all extremities, no focal motor deficits, no sensory deficits noted and gait normal SENSORIUM/ORIENTATION: Yes alert, Yes oriented to person, Yes oriented to place and Yes oriented to time SPEECH: speech normal GAIT: Yes Normal gait present Skin: TRAUMA: abrasion (scalp) and no lacerations Course Vital Signs: Vital signs: Vital Signs Temperature 97.9 F 04/29/23 11:40 Pulse Rate 88 04/29/23 11:40 Respiratory Rate 16 04/29/23 11:40 Blood Pressure 139/80 04/29/23 11:40 Pulse Oximetry 96 04/29/23 11:40 MDM - Fall Medical Decision Making Patient here following a fall [address] imaging ordered by another provider while patient was in the waiting room. CT head, cervical spine, lumbar spine, pelvis are all negative for acute injury/fracture. Patient has been ambulatory without difficulty or assistance since the fall. She will be allowed discharge at this time. Return ED precautions given. Otherwise she can follow- up with primary care in 1 to 2 weeks. All radiology interpretation(s) finalized by discharge Discharge Plan Discharge Patient Disposition: Home Clinical Impression: Fall on same level from tripping Contusion of hip Qualifiers: Encounter type: initial encounter Laterality: unspecified laterality Qualified Code(s): S70.00XA - Contusion of unspecified hip, initial encounter Contusion of scalp Qualifiers: Encounter type: initial encounter Qualified Code(s): S00.03XA - Contusion of scalp, initial encounter Condition: Stable Prescriptions: No Action ipratropium bromide 0.03 % spray,non-aerosol 2 spray INTRANASAL BID Rx Instructions: administer into each nostril multivitamin with minerals [Hair,Skin and Nails] Tablet 1 tab PO DAILY ferrous sulfate [iron] 325 mg (65 mg iron) tablet 325 mg PO DAILY Ocuvite Eye Plus Multi 200-15-150 mcg tablet 2 tab PO DAILY Rx Instructions: administer with a meal and a large glass of water bepotastine besilate [Bepreve] 1.5 % drops 1 drp ophthalmic (eye) BID PRN (Reason: UNKNOWN) ammonium lactate 12 % cream 1 applic topical BID Qty: 385 3RF Rx Instructions: neck down prednisone 20 mg tablet 20 mg PO DAILY Qty: 5 0RF doxycycline hyclate 100 mg capsule 100 mg PO BID Qty: 6 0RF prednisone 20 mg tablet See Rx Instructions PO DAILY Qty: 20 0RF Rx Instructions: Take 3 tabs PO daily for 3 days, then 2 tabs daily for 3 days, then 1 tab daily for 5 days then stop losartan 25 mg tablet 25 mg PO DAILY Qty: 90 3RF fluticasone propion-salmeterol [Advair Diskus] 250-50 mcg/dose blister with device 1 inh inhalation BID Qty: 180 3RF bumetanide 2 mg tablet See Rx Instructions PO BID Qty: 180 3RF Rx Instructions: Take one tab PO daily and take BID if swelling increasing atorvastatin 40 mg tablet See Rx Instructions .ROUTE .COMPLEX Qty: 90 3RF Dose Instruction: TAKE 1 TABLET EVERY EVENING FOR CHOLESTEROL Rx Instructions: TAKE 1 TABLET EVERY EVENING FOR CHOLESTEROL tramadol 50 mg tablet 50 mg PO BID Qty: 180 2RF hydroxychloroquine 200 mg tablet 200 mg PO BID Qty: 180 3RF ropinirole 1 mg tablet 1 mg PO BEDTIME Qty: 90 3RF zolpidem [Ambien] 10 mg tablet 10 mg PO BEDTIME Qty: 90 2RF allopurinol 300 mg tablet See Rx Instructions .ROUTE .COMPLEX Qty: 90 3RF Dose Instruction: TAKE 1 TABLET DAILY Rx Instructions: TAKE 1 TABLET DAILY meloxicam 7.5 mg tablet 7.5 mg PO DAILY (DME) Ankle Brace Misc See Rx Instructions .ROUTE .MEDSUPPLY Qty: 1 0RF Rx Instructions: As directed (DME) Low impact water aerobics See Rx Instructions .Route .MEDSUPPLY Qty: 1 0RF Rx Instructions: Twice a week to help with weight loss diltiazem HCl [Tiadylt ER] 180 mg capsule,extended release 24 hr 180 mg PO BID Qty: 180 3RF gabapentin 100 mg capsule 100 mg PO BID Qty: 180 3RF levofloxacin 500 mg tablet 500 mg PO DAILY Qty: 10 0RF Nucala 100 mg/mL auto-injector 100 mg SUBCUT .every 4 weeks Qty: 1 11RF Rx Instructions: Per Sandra Jones @ [facility], [place] approval #[id number] valid 07/26/21- 08/25/22 levothyroxine 125 mcg tablet 125 mcg PO DAILY Qty: 90 3RF omeprazole 20 mg capsule,delayed release(DR/EC) 20 mg PO BEDTIME Qty: 90 3RF albuterol sulfate 90 mcg/actuation HFA aerosol inhaler See Rx Instructions .ROUTE .COMPLEX Qty: 34 4RF Dose Instruction: USE 1 TO 2 INHALATIONS EVERY 4 TO 6 HOURS NEEDED FOR COUGH OR SHORTNESS Rx Instructions: USE 1 TO 2 INHALATIONS EVERY 4 TO 6 HOURS NEEDED FOR COUGH OR SHORTNESS potassium chloride 20 mEq tablet,ER particles/crystals See Rx Instructions .ROUTE .COMPLEX Qty: 180 3RF Dose Instruction: TAKE 1 TABLET TWICE A DAY WHEN TAKING LASIX Rx Instructions: TAKE 1 TABLET TWICE A DAY WHEN TAKING LASIX cyclobenzaprine 5 mg tablet See Rx Instructions .ROUTE .COMPLEX Qty: 90 3RF Dose Instruction: TAKE 1 TABLET DAILY, OCCASIONALLY NEEDED FOR MUSCLE SPASM Rx Instructions: TAKE 1 TABLET DAILY, OCCASIONALLY NEEDED FOR MUSCLE SPASM triamcinolone acetonide 0.1 % cream See Rx Instructions .ROUTE .COMPLEX Qty: 454 1RF Dose Instruction: APPLY TO THE AFFECTED AREA TWICE A DAY Rx Instructions: APPLY TO THE AFFECTED AREA TWICE A DAY cetirizine 10 mg tablet 10 mg PO DAILY Qty: 90 3RF montelukast [Singulair] 10 mg tablet 10 mg PO BEDTIME Qty: 90 3RF albuterol sulfate 2.5 mg /3 mL (0.083 %) solution for nebulization 2.5 mg inhalation Q6H PRN (Reason: Wheezing) Discharge Orders: Discharge ED (Routine); Ordered 04/29/23 Ordered By: Cat Rogers Referrals: Chip Savage MD [Primary Care Provider] - Activity Restrictions/Additional Instructions: As we discussed CT imaging of your head and cervical spine as well as imaging of your lumbar spine and pelvis were all negative for acute fracture. You may follow-up with primary care provider if needed if pain does not begin to improve over the next 1 to 2 weeks. Coding Level of Care Code ED Diplomatic Officer for Lokesh Cintron
== END 2023-04-29 13:31 | disposition home or self-care (01) ==
PROVIDERS: Emergency Provider Physician Assistant; PCP Family Medicine
DX: S00.03XA Contusion of scalp, initial encounter (principal); S70.00XA Contusion of unspecified hip, initial encounter; I12.9 Hypertensive chronic kidney disease with stage 1 through stage 4 chronic kidney disease, or unspecified chronic kidney disease; N18.9 Chronic kidney disease, unspecified; W01.0XXA Fall on same level from slipping, tripping and stumbling without subsequent striking against object, initial encounter; S49.91XA Unspecified injury of right shoulder and upper arm, initial encounter; S42.101A Fracture of unspecified part of scapula, right shoulder, initial encounter for closed fracture; W19.XXXA Unspecified fall, initial encounter
CPT/HCPCS: 70450; 72125; 72131; 72192; 73030; 99214; 99284

== ENCOUNTER 2023-05-03 10:26 | Outpatient (CLI) | payer MEDICARE, OTHER, SELFPAY ==
--- NOTE | 2023-05-03 10:30 | CT_ITS ---
WS: [id number] CT SHOULDER, NONCONTRAST, 3D HISTORY: rule out shoulder fracture due to injury/fall Technique: All CT scans at [facility] use at least one of these dose optimization techniques: automated exposure control; mA and/or kV adjustment per patient size (includes targeted exams where dose is matched to clinical indication); or iterative reconstruction. DLP: 745.33 mGy.cm COMPARISON: Radiograph 04/29/2023 Normal clavicle. No fracture. Mild AC joint narrowing. Normal acromion. Mild narrowing of the glenohumeral joint. There is a very subtle step-off and lucency through the inf erior most aspect of the glenoid. Very suspicious for a nondisplaced fracture. This is a very subtle finding and could be degenerative. No humeral head fracture. The humeral neck is normal. No rotator cuff muscle atrophy. No significant joint effusion. There is very mild distention of the s ubscapularis recess. This is also the site of the possible fracture involving the glenoid. Lung apice s clear. No acute rib fractures. IMPRESSION: 1. There is very slight cortical lucency and step-off involving the inferior glenoid. Highly suspici ous for fracture. Similar findings may be identified with degenerative arthropathy. 2. Clavicle is negative. No humeral head fracture.
== END 2023-05-03 10:27 | disposition home or self-care (01) ==
LOC: RAD 10:27
PROVIDERS: PCP Family Medicine; Visit Provider Student in an Organized Health Care Education/Training Program
DX: S42.91XA Fracture of right shoulder girdle, part unspecified, initial encounter for closed fracture (principal); W19.XXXA Unspecified fall, initial encounter; R93.7 Abnormal findings on diagnostic imaging of other parts of musculoskeletal system
CPT/HCPCS: 73200

== ENCOUNTER → 2023-05-09 12:43 | Outpatient (BNVA) | payer MEDICARE, OTHER, SELFPAY | PROVIDERS: PCP Family Medicine; Visit Provider Podiatrist Foot & Ankle Surgery | DX: S92.414D Nondisplaced fracture of proximal phalanx of right great toe, subsequent encounter for fracture with routine healing; S93.621D Sprain of tarsometatarsal ligament of right foot, subsequent encounter; W19.XXXD Unspecified fall, subsequent encounter | CPT/HCPCS: 73630; 99213 ==

== ENCOUNTER 2023-05-11 10:30 | Outpatient (CLI) | payer MEDICARE, OTHER, SELFPAY ==
--- NOTE | 2023-05-11 11:00 | MR_ITS ---
WS: [id number] MRI CERVICAL SPINE NONCONTRAST HISTORY: M54.12 - Radiculopathy, cervical region COMPARISON: C-spine CT 04/29/2023 Technique: Multiplanar, multisequence noncontrast imaging of the cervical spine. Straightening of the normal cervical lordosis. Disc spaces are mildly narrowed and desiccated. There is bone upon bone at the C4-5 disc level. There is a very small amount of marrow edema in the facets of C5 and C6 and also the posterior LEFT lateral vertebral body. Signal within the cervical cord is normal. Visualized posterior fossa is unremarkable. Craniocervical junction, C1 and C2 relationship, odontoid process and soft tissues are normal. C2-C3: No stenosis. C3-C4: Osteophytic ridging and a shallow central disc protrusion. Small foraminal osteophytes. Mild b ilateral foraminal stenosis. C4-C5: Marked osteophytic ridging encroaching upon the ventral thecal sac and foramina. Mild central and LEFT foraminal stenosis. Moderate RIGHT foraminal stenosis predominantly due to osteophyte diseas e. There is a small amount of fluid involving the facet joint along with the marrow edema. C5-C6: Mild osteophytic ridging. Mild central and bilateral foraminal stenosis, RIGHT greater than LE FT. C6-C7: Mild osteophytic ridging and facet joint arthritis. Mild central and moderate bilateral forami nal stenosis. C7-T1: Normal. Paravertebral soft tissues are limited by motion. There is edema in the soft tissues of the LEFT late ral neck surrounding the C4-5 facet joints and in the posterior paraspinal soft tissues. IMPRESSION: 1. Multifocal areas of central and bilateral foraminal stenosis throughout the cervical spine. There is advanced degenerative disc disease and facet arthritis. 2. Small amount of marrow edema noted in the LEFT articular facets in the lateral vertebral bodies o f C4 and C5 with facet joint fluid and edema in the soft tissues. This could be posttraumatic or due to acute synovitis. No fractures are identified or displacement. 3. No signal abnormality in the cord.
== END 2023-05-11 10:31 | disposition home or self-care (01) ==
LOC: RAD 10:30
PROVIDERS: PCP Family Medicine; Visit Provider Anesthesiology Pain Medicine
DX: M50.223 Other cervical disc displacement at C6-C7 level (principal); M54.12 Radiculopathy, cervical region
CPT/HCPCS: 72141

== ENCOUNTER 2023-05-23 06:00 | Outpatient (RCR) | payer MEDICARE, OTHER, SELFPAY | END 2023-06-19 23:59 | disposition home or self-care (01) | LOC: APT 06:00 | PROVIDERS: PCP Family Medicine; Visit Provider Family Medicine | DX: R29.6 Repeated falls (principal); M25.511 Pain in right shoulder | CPT/HCPCS: 97110; 97161; 97530 ==

== ENCOUNTER → 2023-06-03 12:22 | Outpatient (BNVA) | payer MEDICARE, OTHER, SELFPAY | PROVIDERS: PCP Family Medicine; Referring Provider Family Medicine; Visit Provider Physician Assistant | DX: M25.552 Pain in left hip (principal); M70.62 Trochanteric bursitis, left hip; M16.12 Unilateral primary osteoarthritis, left hip | CPT/HCPCS: 20610; 73502; 99213; J3301; J3490 ==

== ENCOUNTER → 2023-06-09 10:39 | Outpatient (BNVA) | payer MEDICARE, OTHER, SELFPAY | PROVIDERS: PCP Family Medicine; Referring Provider Family Medicine; Visit Provider Student in an Organized Health Care Education/Training Program | DX: S49.91XA Unspecified injury of right shoulder and upper arm, initial encounter; S42.143A Displaced fracture of glenoid cavity of scapula, unspecified shoulder, initial encounter for closed fracture; S42.153A Displaced fracture of neck of scapula, unspecified shoulder, initial encounter for closed fracture; M75.41 Impingement syndrome of right shoulder; W17.89XA Other fall from one level to another, initial encounter | CPT/HCPCS: 99214 ==

== ENCOUNTER → 2023-06-16 10:13 | Outpatient (BNVA) | payer MEDICARE, OTHER, SELFPAY | PROVIDERS: Visit Provider Anesthesiology Pain Medicine | DX: M25.511 Pain in right shoulder; M50.90 Cervical disc disorder, unspecified, unspecified cervical region; M54.12 Radiculopathy, cervical region; M48.02 Spinal stenosis, cervical region | CPT/HCPCS: 99214 ==

== ENCOUNTER 2023-06-20 06:00 | Outpatient (RCR) | payer MEDICARE, OTHER, SELFPAY | END 2023-07-19 23:59 | disposition home or self-care (01) | LOC: APT 06:00 | PROVIDERS: PCP Family Medicine; Visit Provider Family Medicine | DX: R29.6 Repeated falls (principal); M25.511 Pain in right shoulder | CPT/HCPCS: 97110; 97164 ==

== ENCOUNTER 2023-06-20 06:00 | Outpatient (RCR) | payer MEDICARE, OTHER, SELFPAY | END 2023-07-19 23:59 | disposition home or self-care (01) | LOC: APT 06:00 | PROVIDERS: PCP Family Medicine; Visit Provider Student in an Organized Health Care Education/Training Program | DX: M25.511 Pain in right shoulder (principal) | CPT/HCPCS: 97110; 97164 ==

== ENCOUNTER 2023-07-06 09:01 | Outpatient (CLI) | payer MEDICARE, OTHER, SELFPAY ==
--- NOTE | 2023-07-06 09:30 | MR_ITS ---
WS: [id number] MRI RIGHT SHOULDER HISTORY: labral tear COMPARISON: Shoulder CT 05/03/2023 TECHNIQUE: Multiplanar sequences of the shoulder joint are submitted. This MRI is significantly compromised by patient's body habitus and motion artifact. Numerous extra s equences were added to improve imaging. Mild AC joint arthritis with mild encroachment upon the supraspinatus. Small amount of fluid in the s ubacromial and subdeltoid bursa. Humeral head is also very slightly high riding. Mild subacromial imp ingement. Biceps tendon does appear to be in the bicipital groove. Moderate high riding humeral head. Marked narrowing of the glenohumeral joint. Osteophytic ridging ar ound the humeral head. Loss of cartilage. Focal marrow edema involving the superior humeral head but no fracture. There is focal edema in the anterior inferior glenoid with loss of the overlying cartila ge and normal cortex. This corresponds to the findings on the prior CT. Consistent with glenoid fract ure without displacement. Lucent fracture line is noted on the coronal T1 sequence. No edema or volume loss in the rotator cuff muscles. There is edema along the articular and bursal dia rfaces of the distal supraspinatus tendon beginning at the medial humeral head. The distal tendon is very difficult to visualize but I believe is intact. No full-thickness tear is identified. Significan t increased T2 signal in the subscapularis tendon. The distal subscapularis tendon is very difficult to visualize Abnormal signal in the distal subscapularis tendon. Near the coracohumeral interval and distally the tendon appears torn. Suspect high-grade if not complete tear. Increased signal also in the rotator cu ff interval. The relationship of the biceps tendon to the subscapularis tendon is not well visualized . Anterior labrum is not visualized. Suspect there is avulsion of the anterior labrum associated with the glenoid tear. Overall very limited evaluation of the labrum. IMPRESSION: 1. This study is significantly compromised by patient's body habitus and motion. 2. Nondisplaced fracture involving the inferior glenoid. Corresponds to the findings on the recent C T. Marrow edema along the anterior inferior glenoid. 3. Additional marrow edema in the superior humeral head is probably from the recent trauma. No fract ure. 4. Moderate high riding humeral head. Marked increased signal in the subscapularis tendon beginning medial to the humeral head. The entire tendon is not well visualized. No definite full-thickness tear with retraction. Suspect marked tendinopathy. 5. Abnormal anterior labrum. Suspect the anterior labrum is avulsed from the recent trauma. This delgado s also correspond to the location of the glenoid fracture.
== END 2023-07-06 09:02 | disposition home or self-care (01) ==
LOC: RAD 09:03
PROVIDERS: PCP Family Medicine; Visit Provider Student in an Organized Health Care Education/Training Program
DX: S43.431A Superior glenoid labrum lesion of right shoulder, initial encounter (principal); M25.511 Pain in right shoulder; S42.144A Nondisplaced fracture of glenoid cavity of scapula, right shoulder, initial encounter for closed fracture; X58.XXXA Exposure to other specified factors, initial encounter
CPT/HCPCS: 73221; 80053; 80061; 82306; 83735; 84439; 84443; 85025

== ENCOUNTER → 2023-07-12 14:52 | Outpatient (BNVA) | payer MEDICARE, OTHER, SELFPAY | PROVIDERS: PCP Family Medicine; Visit Provider Student in an Organized Health Care Education/Training Program | DX: M75.41 Impingement syndrome of right shoulder; S42.141A Displaced fracture of glenoid cavity of scapula, right shoulder, initial encounter for closed fracture; S42.151A Displaced fracture of neck of scapula, right shoulder, initial encounter for closed fracture; X58.XXXA Exposure to other specified factors, initial encounter | CPT/HCPCS: 99213 ==

== ENCOUNTER 2023-07-20 06:00 | Outpatient (RCR) | payer MEDICARE, OTHER, SELFPAY | END 2023-08-19 23:59 | disposition home or self-care (01) | LOC: APT 06:00 | PROVIDERS: PCP Family Medicine; Visit Provider Family Medicine | DX: R29.6 Repeated falls (principal); M25.511 Pain in right shoulder | CPT/HCPCS: 97110; 97112; 97116; 97530 ==

== ENCOUNTER 2023-08-02 14:58 | Outpatient (CLI) | payer MEDICARE, OTHER, SELFPAY ==
[2023-08-02 16:00] LABS: Basophils # 0.1 10^3/uL (0.0-0.1); Basophils % 1.2 %; Eosinophils % 0.7 %; Hematocrit 36.9 % (36-47); Lymphocytes # 1.8 10^3/uL (0.8-4.8); Lymphocytes % 29.5 %; Mean Corpuscular HGB Conc 32.8 g/dL (30-55); Mean Corpuscular Hemoglobin 32.2 pg (27-33); Mean Corpuscular Volume 98.1 fl (85-98); Mean Platelet Volume 9.6 fL (7.4-10.4); Monocytes # 0.5 10^3/uL (0.2-0.9); Monocytes % 8.5 %; Neutrophils % 59.8 %; Nucleated Red Blood Cells % 0 %; Platelet Count 268 10^3/cmm (157-399); Red Blood Count 3.76 10^6/uL (3.85-5.65); Red Cell Distribution Width 14.5 % (12.1-15.1); White Blood Count 6.01 10^3/uL (3.29-11.43)
[2023-08-02 16:17] LABS: Albumin Level 3.6 g/dL (3.5-5.2); Anion Gap 15.1 (5-19); Blood Urea Nitrogen 20 mg/dL (8-23); Calcium 7.8 mg/dL (8.5-10.5); Carbon Dioxide 29 mmol/L (22-29); Chloride 100 mmol/L (98-107); Glucose 93 mg/dL (65-115); Potassium 4.1 mmol/L (3.5-5.1); Sodium 140 mmol/L (136-145)
[2023-08-02 17:01] LABS: Creatinine Urine, Random 200 mg/dL (28-217); Microalbum Creatinine Ratio Ur 25 mg/dL (0-20); Microalbumin Random Urine 5 ug/dL (0-20)
[2023-08-02 17:15] LABS: Parathyroid Hormone 223.1 pg/mL (15-65)
[2023-08-02 17:19] LABS: Calcium 7.9 mg/dL (8.5-10.5)
== END 2023-08-02 14:59 | disposition home or self-care (01) ==
LOC: LAB 15:03
PROVIDERS: PCP Family Medicine; Visit Provider Internal Medicine Nephrology
DX: N18.32 Chronic kidney disease, stage 3b (principal); Z79.899 Other long term (current) drug therapy
CPT/HCPCS: 36415; 80069; 82044; 82310; 83970; 85025

== ENCOUNTER 2023-08-11 10:23 | Outpatient (CLI) | payer MEDICARE, OTHER, SELFPAY ==
[2023-08-11 11:10] LABS: Basophils % 0.9 %; Eosinophils % 0.6 %; Hematocrit 34.9 % (36-47); Lymphocytes # 1.6 10^3/uL (0.8-4.8); Lymphocytes % 34.5 %; Mean Corpuscular HGB Conc 32.1 g/dL (30-55); Mean Corpuscular Hemoglobin 31.5 pg (27-33); Mean Corpuscular Volume 98.3 fl (85-98); Mean Platelet Volume 9.8 fL (7.4-10.4); Monocytes # 0.4 10^3/uL (0.2-0.9); Monocytes % 8.7 %; Neutrophils # 2.59 10^3/uL (1.8-7.7); Neutrophils % 55.1 %; Nucleated Red Blood Cells % 0 %; Platelet Count 278 10^3/cmm (157-399); Red Blood Count 3.55 10^6/uL (3.85-5.65); Red Cell Distribution Width 14.8 % (12.1-15.1)
[2023-08-11 11:12] LABS: Bacteria Urine TRACE /hpf; Bilirubin Urine Neg (Negative); Blood Urine Neg (Negative); Glucose Urine UA Norm (Normal); Hyaline Casts Urine 0-4 /lpf; Ketones Urine Negative (Negative); Leukocyte Esterase Urine Negative (Negative); Nitrate Urine Negative (Negative); Protein Urine Neg (Negative); RBC Urine 0-4 /hpf (0-2); Specific Gravity, Urine 1.015 (1.005-1.030); Squamous Epithelial Cell Urine 0-4 /hpf (0-5); Urine Appearance Clear (CLEAR); Urine Color Yellow (Yellow); Urobilinogen Urine Norm (Negative); WBC Urine 0-4 /hpf (0-5); pH Urine 5 (5-7)
[2023-08-11 11:16] LABS: Urine Creatinine 80 mg/dL (28-217); Urine Protein Random 5 mg/dL
[2023-08-11 11:21] LABS: UPRO/UCREAT Ratio 0.06 mg/mg CR
[2023-08-11 11:28] LABS: Albumin Level 3.5 g/dL (3.5-5.2); Anion Gap 12.6 (5-19); Blood Urea Nitrogen 25 mg/dL (8-23); Carbon Dioxide 29 mmol/L (22-29); Chloride 102 mmol/L (98-107); Glucose 92 mg/dL (65-115); Phosphorus 3.9 mg/dL (2.5-4.5); Potassium 3.6 mmol/L (3.5-5.1); Sodium 140 mmol/L (136-145)
[2023-08-11 11:44] LABS: 25 Hydroxy Vitamin D 39 ng/mL (30-100)
[2023-08-12 09:58] LABS: PROTEIN, TOTAL 5.7 g/dL (6.1-8.1)
[2023-08-12 10:50] LABS: KAPPA LIGHT CHAIN, FREE, SERUM 38.6 mg/L (3.3-19.4); KAPPA/LAMBDA LIGHT CHAINS FREE 1.35 (0.26-1.65); LAMBDA LIGHT CHAIN, FREE, SERU 28.6 mg/L (5.7-26.3)
[2023-08-12 13:29] LABS: Anti-Double Strand DNA AB <1 IU/mL; Jo-1 Antibody <1.0 NEG AI (<1.0 NEG); SS-B/LA IGG <1.0 NEG AI (<1.0 NEG); Scleroderma Ab(Scl-70) Ab <1.0 NEG AI (<1.0 NEG); Ss-A/Ro Igg <1.0 NEG AI (<1.0 NEG)
[2023-08-12 16:18] LABS: ALBUMIN 3.1 g/dL (3.8-4.8); ALPHA 1 GLOBULIN 0.4 g/dL (0.2-0.3); ALPHA 2 GLOBULIN 0.9 g/dL (0.5-0.9); BETA 1 GLOBULIN 0.4 g/dL (0.4-0.6); BETA 2 GLOBULIN 0.4 g/dL (0.2-0.5); GAMMA GLOBULIN 0.6 g/dL (0.8-1.7)
[2023-08-14 02:40] LABS: ANCA Screen NEGATIVE (NEGATIVE)
== END 2023-08-11 10:24 | disposition home or self-care (01) ==
PROVIDERS: PCP Family Medicine; Visit Provider Registered Nurse
DX: E55.9 Vitamin D deficiency, unspecified (principal)
CPT/HCPCS: 36415; 80069; 81001; 82306; 82570; 83883; 84155; 84156; 84165; 85025; 86036; 86225; 86235

== ENCOUNTER 2023-08-20 06:00 | Outpatient (RCR) | payer MEDICARE, OTHER, SELFPAY | END 2023-09-18 23:59 | disposition home or self-care (01) | LOC: APT 06:00 | PROVIDERS: PCP Family Medicine; Visit Provider Family Medicine | DX: R29.6 Repeated falls (principal); M25.511 Pain in right shoulder | CPT/HCPCS: 97110 ==

== ENCOUNTER → 2023-09-09 08:33 | Outpatient (BNVA) | payer MEDICARE, OTHER, SELFPAY | PROVIDERS: PCP Family Medicine; Visit Provider Student in an Organized Health Care Education/Training Program | DX: M75.41 Impingement syndrome of right shoulder (principal); S43.431A Superior glenoid labrum lesion of right shoulder, initial encounter; M19.011 Primary osteoarthritis, right shoulder; X58.XXXA Exposure to other specified factors, initial encounter | CPT/HCPCS: 20610; 77002; 99213; J3301 ==

== ENCOUNTER 2023-09-12 10:19 | Outpatient (CLI) | payer MEDICARE, OTHER, SELFPAY ==
[2023-09-12 10:52] LABS: Basophils # 0.1 10^3/uL (0.0-0.1); Basophils % 0.9 %; Eosinophils % 0.3 %; Hematocrit 36.3 % (36-47); Lymphocytes # 2.1 10^3/uL (0.8-4.8); Lymphocytes % 32.2 %; Mean Corpuscular Hemoglobin 31.7 pg (27-33); Mean Corpuscular Volume 99.2 fl (85-98); Mean Platelet Volume 9.4 fL (7.4-10.4); Monocytes # 0.6 10^3/uL (0.2-0.9); Monocytes % 8.5 %; Neutrophils # 3.76 10^3/uL (1.8-7.7); Neutrophils % 57.9 %; Nucleated Red Blood Cells % 0 %; Platelet Count 306 10^3/cmm (157-399); Red Blood Count 3.66 10^6/uL (3.85-5.65); White Blood Count 6.49 10^3/uL (3.29-11.43)
[2023-09-12 11:21] LABS: Alanine Aminotransferase 16 U/L (0-33); Albumin Level 3.9 g/dL (3.5-5.2); Alkaline Phosphatase 102 U/L (35-105); Anion Gap 18.3 (5-19); Aspartate Amino Transferase 14 U/L (0-32); Blood Urea Nitrogen 26 mg/dL (8-23); Calcium 8.7 mg/dL (8.5-10.5); Carbon Dioxide 28 mmol/L (22-29); Chloride 101 mmol/L (98-107); Free T4 Free Thyroxine 1.49 ng/dL (0.82-1.77); Globulin 2.5 g/dL (1.3-4.6); Glucose 85 mg/dL (65-115); Osmolality Calculated 300 mOsm/kg (285-295); Potassium 4.3 mmol/L (3.5-5.1); Sodium 143 mmol/L (136-145); Thyroid Stimulating Hormone 3.15 uIU/mL (0.27-4.20); Total Bilirubin 0.3 mg/dL (0.15-1.2); Total Protein 6.4 g/dL (6.6-8.7)
[2023-09-12 11:43] LABS: Erythrocyte Sedimentation Rate 47 mm/hr (0-15)
== END 2023-09-12 10:20 | disposition home or self-care (01) ==
LOC: LAB 10:22
PROVIDERS: Internal Medicine; PCP Family Medicine; Visit Provider Internal Medicine Rheumatology
DX: E03.9 Hypothyroidism, unspecified (principal); R76.8 Other specified abnormal immunological findings in serum; M19.90 Unspecified osteoarthritis, unspecified site; M79.89 Other specified soft tissue disorders; T78.40XA Allergy, unspecified, initial encounter
CPT/HCPCS: 36415; 80053; 84439; 84443; 85025; 85651; 86140

== ENCOUNTER 2023-09-16 13:46 | Outpatient (CLI) | payer MEDICARE, OTHER, SELFPAY ==
--- NOTE | 2023-09-16 14:15 | US_ITS ---
WS: [id number] THYROID ULTRASOUND HISTORY: Voice changes, possible thyroid nodule COMPARISON: None available. Right lobe: 1.1 cm x 1.4 cm x 3.2 cm (w x ap x l). Volume: 2.5 cm3. Mild heterogeneity. Very ill defined thyroid. No nodule. Left lobe: 1.4 cm x 1.3 cm x 3.6 cm (w x ap x l). Volume: 3.1 cm3. Mild heterogeneity. Very ill-defined thyroid. No nodule. Isthmus: 0.2 cm. US/US thyroid [id number] IMPRESSION: 1. Mildly heterogeneous gland. No nodules are identified.
== END 2023-09-16 13:47 | disposition home or self-care (01) ==
LOC: RAD 13:47
PROVIDERS: PCP Family Medicine; Visit Provider Family Medicine
DX: E04.1 Nontoxic single thyroid nodule (principal)
CPT/HCPCS: 76536

== ENCOUNTER 2023-09-19 06:00 | Outpatient (RCR) | payer MEDICARE, OTHER, SELFPAY | END 2023-10-19 23:59 | disposition home or self-care (01) | LOC: APT 06:00 | PROVIDERS: PCP Family Medicine; Visit Provider Family Medicine | DX: R29.6 Repeated falls (principal); M25.511 Pain in right shoulder | CPT/HCPCS: 99214 ==

== ENCOUNTER → 2023-09-19 10:27 | Outpatient (BNVA) | payer MEDICARE, OTHER, SELFPAY | PROVIDERS: PCP Family Medicine; Visit Provider Internal Medicine Rheumatology | DX: E03.9 Hypothyroidism, unspecified (principal) | CPT/HCPCS: 36415; 84439; 84443 ==

== ENCOUNTER → 2023-10-05 14:27 | Outpatient (BNVA) | payer MEDICARE, OTHER, SELFPAY | PROVIDERS: PCP Family Medicine; Visit Provider Internal Medicine Cardiovascular Disease | DX: I35.8 Other nonrheumatic aortic valve disorders (principal); I51.89 Other ill-defined heart diseases; R07.9 Chest pain, unspecified | CPT/HCPCS: 93005; 99204 ==

== ENCOUNTER 2023-10-20 11:49 | Outpatient (CLI) | payer MEDICARE, OTHER, SELFPAY ==
[2023-10-20 12:41] LABS: Basophils % 0.6 %; Eosinophils % 0.5 %; Hematocrit 39.1 % (36-47); Lymphocytes # 2.4 10^3/uL (0.8-4.8); Lymphocytes % 36.3 %; Mean Corpuscular HGB Conc 32.2 g/dL (30-55); Mean Corpuscular Hemoglobin 31.7 pg (27-33); Mean Corpuscular Volume 98.5 fl (85-98); Mean Platelet Volume 10.5 fL (7.4-10.4); Monocytes # 0.5 10^3/uL (0.2-0.9); Monocytes % 8.2 %; Neutrophils % 54.2 %; Nucleated Red Blood Cells % 0 %; Platelet Count 261 10^3/cmm (157-399); Red Blood Count 3.97 10^6/uL (3.85-5.65); White Blood Count 6.62 10^3/uL (3.29-11.43)
[2023-10-20 12:56] LABS: Calcium 8.8 mg/dL (8.5-10.5)
[2023-10-20 12:57] LABS: Albumin Level 3.7 g/dL (3.5-5.2); Anion Gap 13.5 (5-19); Blood Urea Nitrogen 23 mg/dL (8-23); Calcium 8.7 mg/dL (8.5-10.5); Carbon Dioxide 31 mmol/L (22-29); Chloride 103 mmol/L (98-107); Glucose 95 mg/dL (65-115); Phosphorus 3.3 mg/dL (2.5-4.5); Potassium 4.5 mmol/L (3.5-5.1); Sodium 143 mmol/L (136-145)
[2023-10-20 13:01] LABS: Urine Creatinine 171 mg/dL (28-217); Urine Protein Random 12 mg/dL
[2023-10-20 13:02] LABS: UPRO/UCREAT Ratio 0.07 mg/mg CR
[2023-10-20 13:04] LABS: Parathyroid Hormone 209.6 pg/mL (15-65)
[2023-10-22 02:45] LABS: PROTEIN, TOTAL 5.6 g/dL (6.1-8.1)
[2023-10-24 14:30] LABS: ALBUMIN 3.1 g/dL (3.8-4.8); ALPHA 1 GLOBULIN 0.3 g/dL (0.2-0.3); ALPHA 2 GLOBULIN 0.8 g/dL (0.5-0.9); BETA 1 GLOBULIN 0.4 g/dL (0.4-0.6); BETA 2 GLOBULIN 0.4 g/dL (0.2-0.5); GAMMA GLOBULIN 0.6 g/dL (0.8-1.7)
[2023-10-24 19:39] LABS: Immunofixation Serum Normal pattern.
== END 2023-10-20 11:50 | disposition home or self-care (01) ==
LOC: LAB 11:53
PROVIDERS: PCP Family Medicine; Visit Provider Registered Nurse
DX: N18.32 Chronic kidney disease, stage 3b (principal)
CPT/HCPCS: 36415; 80069; 82310; 82570; 83970; 84155; 84156; 84165; 85025; 86334; 86335

== ENCOUNTER → 2023-11-01 09:53 | Outpatient (BNVA) | payer MEDICARE, OTHER, SELFPAY | PROVIDERS: PCP Family Medicine; Visit Provider Physician Assistant | DX: M70.62 Trochanteric bursitis, left hip (principal); M16.12 Unilateral primary osteoarthritis, left hip | CPT/HCPCS: 20610; 99213; J2795; J3301 ==

== ENCOUNTER 2023-11-08 07:41 | Outpatient (RCR) | payer MEDICARE, OTHER, SELFPAY ==
[2023-11-08 09:23] LABS: Reticulocyte % 1.5 % (0.5-2.0)
[2023-11-08 09:24] LABS: Eosinophils % 0.3 %; Hematocrit 38.4 % (36-47); Lymphocytes # 1.5 10^3/uL (0.8-4.8); Lymphocytes % 19.9 %; Mean Corpuscular HGB Conc 32.8 g/dL (30-55); Mean Corpuscular Hemoglobin 31.7 pg (27-33); Mean Corpuscular Volume 96.7 fl (85-98); Monocytes # 0.6 10^3/uL (0.2-0.9); Monocytes % 7.7 %; Neutrophils # 5.12 10^3/uL (1.8-7.7); Neutrophils % 70.3 %; Nucleated Red Blood Cells % 0 %; Platelet Count 230 10^3/cmm (157-399); Red Blood Count 3.97 10^6/uL (3.85-5.65); Red Cell Distribution Width 14.3 % (12.1-15.1); White Blood Count 7.28 10^3/uL (3.29-11.43)
[2023-11-08 09:38] LABS: Erythrocyte Sedimentation Rate 34 mm/hr (0-15)
[2023-11-08 09:51] LABS: Alanine Aminotransferase 19 U/L (0-33); Albumin Level 3.5 g/dL (3.5-5.2); Alkaline Phosphatase 84 U/L (35-105); Anion Gap 14.6 (5-19); Aspartate Amino Transferase 14 U/L (0-32); Blood Urea Nitrogen 24 mg/dL (8-23); Calcium 8.1 mg/dL (8.5-10.5); Carbon Dioxide 25 mmol/L (22-29); Chloride 103 mmol/L (98-107); Creatinine Clr Calc Pharmacy 54.2446; Free T4 Free Thyroxine 1.46 ng/dL (0.82-1.77); Globulin 2.7 g/dL (1.3-4.6); Glucose 114 mg/dL (65-115); Immunoglobulin IGA 216 mg/dL (70-400); Immunoglobulin IGG 589 mg/dL (700-1600); Immunoglobulin IGM 58 mg/dL (40-230); Lactate Dehydrogenase 327 U/L (135-214); Osmolality Calculated 291 mOsm/kg (285-295); Potassium 4.6 mmol/L (3.5-5.1); Sodium 138 mmol/L (136-145); T3 Free 1.5 PG/ML (2.0-4.4); Thyroid Stimulating Hormone 0.77 uIU/mL (0.27-4.20); Total Bilirubin 0.3 mg/dL (0.15-1.2); Total Protein 6.2 g/dL (6.6-8.7)
[2023-11-08 10:06] LABS: Folate Level 9.6 ng/mL (4.8-37.3)
[2023-11-08 10:11] LABS: Ferritin 106 ng/mL (15-150); Iron 58 ug/dL (37-145); Total Iron Binding Capacity 241 mcg/dl; Unsaturated Iron Binding 183 ug/dL (112-347)
[2023-11-08 10:27] LABS: Vitamin B12 590 pg/mL (232-1245)
[2023-11-10 11:19] LABS: Copper Level 119 mcg/dL (70-175)
== END 2023-11-24 23:59 | disposition home or self-care (01) ==
LOC: ONCMED 07:41
PROVIDERS: Internal Medicine Medical Oncology; PCP Family Medicine; Visit Provider Family Medicine
DX: D80.1 Nonfamilial hypogammaglobulinemia (principal); E03.9 Hypothyroidism, unspecified; M25.532 Pain in left wrist; I10 Essential (primary) hypertension; R76.8 Other specified abnormal immunological findings in serum
CPT/HCPCS: 36415; 80053; 82525; 82607; 82728; 82746; 82784; 83010; 83540; 83550; 83615; 84439; 84443; 84481; 85025; 85045; 85651; 86140; 99204

== ENCOUNTER 2023-11-11 10:50 | Outpatient (CLI) | payer MEDICARE, OTHER, SELFPAY ==
--- NOTE | 2023-11-11 11:15 | USCV_ITS ---
Rebecca Olivera Age: 73 Gender: F : 1950 Exam Date: 11/11/2023 11:08 Ordering Phys: Alina Campos MD ([email or web address]) Technologist: CT Exam Location: [facility] – [place], [place] Indication: cp BP: 122 / 70 HR: 75 Rhythm: Sinus Technical Quality: Adequate MEASUREMENTS (Male / Female) Normal Values 2D ECHO LVOT Diameter 2.0 cm LV Ejection Fraction MOD 4C 46.9 % LV Ejection Fraction MOD 2C 60.2 % LV Ejection Fraction 2C AL 66.7 % LA Diameter 3.6 cm RA Systolic Volume 4C AL 33.1 ml RA Systolic Volume 4C MOD 31.3 ml LA Sys Volume AL 62.2 cm cubed LA Sys Volume Index AL 26.3 cm cubed/m squared Aorta at Sinotubular Diameter 2.5 cm IVC Diameter 1.8 cm M-MODE LA Ao Ratio MM 1.5 AV Cusp Separation MM 1.9 cm DOPPLER AV Peak Velocity 239.0 cm/s LVOT Peak Velocity 96.0 cm/s AV Area Cont Eq vti 1.4 cm squared AV Area Cont Eq pk 1.3 cm squared MV Peak Velocity 83.0 cm/s MV Area PHT 4.3 cm squared Mitral E to A Ratio 0.7 TR Peak Velocity 195.0 cm/s TR Peak Gradient 15.2 mmHg TV Peak E Velocity 63.0 cm/s Right Atrial Pressure 3.0 mmHg Pulmonary Artery Systolic Pressu 18.2 mmHg PV Peak Velocity 83.5 cm/s FINDINGS Left Ventricle Normal LV size with slightly diminished ejection fraction of 50 to 55%. Grade I/IV diastolic dysfunction (abnormal relaxation filling pattern), normal to mildly elevated filling pressures. Right Ventricle The right ventricle is normal in size and function. Right Atrium The right atrium is normal in size. Left Atrium Normal left atrial size. Mitral Valve Trace to mild mitral valve regurgitation. Aortic Valve Thickened aortic valve. Trace aortic valve regurgitation. Peak velocity of 2.34 m/s Tricuspid Valve No gross abnormalities noted Pulmonic Valve No gross abnormalities noted Pericardium No pericardial effusion. Aorta Normal aortic annulus size. IVC Normal inferior vena cava. CONCLUSIONS Normal LV size with slightly diminished ejection fraction of 50 to 55%. Grade I/IV diastolic dysfunction (abnormal relaxation filling pattern), normal to mildly elevated filling pressures. Trace to mild mitral valve regurgitation. Features of aortic valve sclerosis There is no pericardial effusion. There are no intracardiac masses. Compared to the study from 11/27/2022, there may not be a significant change Dr Alina Campos MD FAC (Electronically Signed) Final Date: 12 November 2023 13:03 S
== END 2023-11-11 10:51 | disposition home or self-care (01) ==
LOC: RAD 10:51
PROVIDERS: PCP Family Medicine; Visit Provider Internal Medicine Cardiovascular Disease
DX: R07.9 Chest pain, unspecified (principal); R06.09 Other forms of dyspnea; I34.0 Nonrheumatic mitral (valve) insufficiency
CPT/HCPCS: 93005; 93306; 99204

== ENCOUNTER 2023-11-25 10:49 | Outpatient (RCR) | payer MEDICARE, OTHER, SELFPAY | END 2023-12-19 23:59 | disposition home or self-care (01) | LOC: SPT 10:49 | PROVIDERS: PCP Family Medicine; Visit Provider Registered Nurse | DX: R60.9 Edema, unspecified (principal) | CPT/HCPCS: 97140; 97161 ==

== ENCOUNTER → 2023-12-05 11:05 | Outpatient (BNVA) | payer MEDICARE, OTHER, SELFPAY | PROVIDERS: PCP Family Medicine; Visit Provider Family Medicine | DX: Z01.89 Encounter for other specified special examinations (principal) | CPT/HCPCS: 93005 ==

== ENCOUNTER 2023-12-12 09:27 | Oncology outpatient (recurring) (ONCR) | payer MEDICARE, OTHER, SELFPAY ==
[2023-12-12 10:10] LABS: Basophils # 0.1 10^3/uL (0.0-0.1); Basophils % 1.1 %; Eosinophils % 0.2 %; Lymphocytes # 1.7 10^3/uL (0.8-4.8); Lymphocytes % 33.3 %; Mean Corpuscular HGB Conc 31.6 g/dL (30-55); Mean Corpuscular Hemoglobin 31.8 pg (27-33); Mean Corpuscular Volume 100.5 fl (85-98); Mean Platelet Volume 9.1 fL (7.4-10.4); Monocytes # 0.4 10^3/uL (0.2-0.9); Neutrophils # 2.98 10^3/uL (1.8-7.7); Nucleated Red Blood Cells % 0 %; Platelet Count 285 10^3/cmm (157-399); Red Blood Count 3.68 10^6/uL (3.85-5.65); Red Cell Distribution Width 14.8 % (12.1-15.1); White Blood Count 5.23 10^3/uL (3.29-11.43)
[2023-12-12 12:07] LABS: Alanine Aminotransferase 15 U/L (0-33); Albumin Level 3.5 g/dL (3.5-5.2); Alkaline Phosphatase 93 U/L (35-105); Anion Gap 12.7 (5-19); Aspartate Amino Transferase 15 U/L (0-32); Blood Urea Nitrogen 14 mg/dL (8-23); Calcium 8.5 mg/dL (8.5-10.5); Carbon Dioxide 32 mmol/L (22-29); Chloride 102 mmol/L (98-107); Creatinine Clr Calc Pharmacy 49.9417; Globulin 2.6 g/dL (1.3-4.6); Glucose 113 mg/dL (65-115); Immunoglobulin IGA 185 mg/dL (70-400); Immunoglobulin IGG 487 mg/dL (700-1600); Immunoglobulin IGM 47 mg/dL (40-230); Osmolality Calculated 297 mOsm/kg (285-295); Potassium 3.7 mmol/L (3.5-5.1); Sodium 143 mmol/L (136-145); Total Bilirubin 0.3 mg/dL (0.15-1.2); Total Protein 6.1 g/dL (6.6-8.7)
== END 2023-12-19 23:59 | disposition home or self-care (01) ==
PROVIDERS: Internal Medicine Medical Oncology; PCP Family Medicine; Visit Provider Nurse Practitioner Family
DX: D80.1 Nonfamilial hypogammaglobulinemia (principal); R53.83 Other fatigue; K59.09 Other constipation; M25.511 Pain in right shoulder; R29.6 Repeated falls
CPT/HCPCS: 36415; 80053; 82784; 85025; 99214

== ENCOUNTER → 2023-12-13 10:25 | Outpatient (BNVA) | payer MEDICARE, OTHER, SELFPAY | PROVIDERS: PCP Family Medicine; Visit Provider Student in an Organized Health Care Education/Training Program | DX: M54.2 Cervicalgia (principal); M19.011 Primary osteoarthritis, right shoulder | CPT/HCPCS: 72050; 99213 ==

== ENCOUNTER → 2023-12-15 13:00 | Outpatient (BNVA) | payer MEDICARE, OTHER, SELFPAY | PROVIDERS: PCP Family Medicine; Visit Provider Orthopaedic Surgery | DX: M54.2 Cervicalgia (principal) | CPT/HCPCS: 99204 ==

== ENCOUNTER 2023-12-20 06:00 | Outpatient (RCR) | payer MEDICARE, OTHER, SELFPAY | END 2023-12-21 23:59 | disposition home or self-care (01) | LOC: SPT 06:00 | PROVIDERS: Visit Provider Registered Nurse | DX: R60.9 Edema, unspecified (principal) | CPT/HCPCS: 97140 ==

== ENCOUNTER 2023-12-20 06:30 | Outpatient (RCR) | payer MEDICARE, OTHER, SELFPAY | END 2024-01-19 23:59 | disposition home or self-care (01) | LOC: APT 06:30 | PROVIDERS: Visit Provider Orthopaedic Surgery | DX: M54.2 Cervicalgia (principal); G89.29 Other chronic pain | CPT/HCPCS: 97110; 97112; 97163; 97530 ==

== ENCOUNTER → 2023-12-27 09:12 | Outpatient (BNVA) | payer MEDICARE, OTHER, SELFPAY | PROVIDERS: Visit Provider Thoracic Surgery (Cardiothoracic Vascular Surgery) | DX: S80.811D Abrasion, right lower leg, subsequent encounter (principal); W19.XXXD Unspecified fall, subsequent encounter | CPT/HCPCS: 97597; 99213 ==

== ENCOUNTER → 2024-01-04 09:52 | Outpatient (BNVA) | payer MEDICARE, OTHER, SELFPAY | PROVIDERS: Visit Provider Thoracic Surgery (Cardiothoracic Vascular Surgery) | DX: I96 Gangrene, not elsewhere classified (principal); S80.811D Abrasion, right lower leg, subsequent encounter; W19.XXXD Unspecified fall, subsequent encounter | CPT/HCPCS: 97597; A6248 ==

== ENCOUNTER → 2024-01-05 13:50 | Outpatient (BNVA) | payer MEDICARE, OTHER, SELFPAY | PROVIDERS: PCP Family Medicine; Visit Provider Internal Medicine Cardiovascular Disease | DX: R06.02 Shortness of breath (principal); M79.89 Other specified soft tissue disorders; M25.562 Pain in left knee; I42.2 Other hypertrophic cardiomyopathy; R01.1 Cardiac murmur, unspecified; I12.9 Hypertensive chronic kidney disease with stage 1 through stage 4 chronic kidney disease, or unspecified chronic kidney disease; N18.9 Chronic kidney disease, unspecified | CPT/HCPCS: 36415; 80048; 83880; 99214 ==

== ENCOUNTER → 2024-01-11 09:01 | Outpatient (BNVA) | payer MEDICARE, OTHER, SELFPAY | PROVIDERS: PCP Family Medicine; Visit Provider Thoracic Surgery (Cardiothoracic Vascular Surgery) | DX: I96 Gangrene, not elsewhere classified (principal); S80.811D Abrasion, right lower leg, subsequent encounter; W19.XXXD Unspecified fall, subsequent encounter | CPT/HCPCS: 97597 ==

== ENCOUNTER 2024-01-16 09:50 | Outpatient (CLI) | payer MEDICARE, OTHER, SELFPAY ==
--- NOTE | 2024-01-16 09:55 | XRR_ITS ---
PROCEDURE INFORMATION: Exam: XR Right Knee Exam date and time: 01/16/2024 10:10 AM Age: 73 years old Clinical indication: Right; Patient HX: Bilat knee pain after fall 7 weeks ago, HX of multiple falls in past 6 mo; Additional info: Right knee pain after fall. No history of surgery is provided. TECHNIQUE: Imaging protocol: Radiologic exam of the right knee. 3image(s) are provided. Views: 3 views. COMPARISON: No previous knee radiograph is currently available of the right. Left report same day. Right ankle report 05/09/2023. FINDINGS: Bones/joints: There appears to be some trace joint fluid. Posterior fabella is demonstrated. There is some multi compartmental degeneration including spurring and narrowing with patellofemoral and medial predominance. No displaced fracture or dislocation is appreciated. Soft tissues: No radiopaque foreign body or subcutaneous emphysema is appreciated. There is some prominence of the soft tissues overall. There is some soft tissue calcific appearance for example anteriorly. XR/XR knee RT 3V* [id number] IMPRESSION: Osseous alignment is maintained with some chronic degeneration overall. No fracture or dislocation is appreciated.
--- NOTE | 2024-01-16 09:55 | XRR_ITS ---
PROCEDURE INFORMATION: Exam: XR Left Knee Exam date and time: 01/16/2024 10:10 AM Age: 73 years old Clinical indication: Injury or trauma; Fall; Blunt trauma; Knee; Left; Injury date: 7 weeks ago; Additional info: Knee pain left TECHNIQUE: Imaging protocol: Radiologic exam of the left knee. 3image(s) are provided. Views: 3 views. COMPARISON: CR XR ankle LT min 3V* [id number] 12/16/2022 11:37 AM. No previous left knee radiograph is currently available. Previous tibia 03/29/2022. FINDINGS: Bones/joints: Osseous alignment is maintained.There appears to be some trace joint fluid. Fabella is demonstrated. No interval displaced fracture or dislocation is appreciated. There is some multi compartmental degeneration present with spurring and narrowing including patellofemoral and medial predominance. There is also some chronic appearing spurring of the medial femoral epicondyle. Soft tissues: No radiopaque foreign body or subcutaneous emphysema is appreciated. There is slight prominence of the soft tissues overall. Other findings: No other significant interval changes are appreciated. XR/XR knee LT 3V* [id number] IMPRESSION: There is multi compartmental degeneration present similar overall. No interval fracture or dislocation is appreciated.
--- NOTE | 2024-01-16 09:55 | XRR_ITS ---
PROCEDURE INFORMATION: Exam: XR Right Hand Exam date and time: 01/16/2024 10:10 AM Age: 73 years old Clinical indication: Hand; Right; Patient HX: Bilat knee pain after fall 7 weeks ago, HX of multiple falls in past 6 mo; Additional info: Right hand pain after fall at 5th metacarpal. No history of recent trauma or surgery is otherwise provided. TECHNIQUE: Imaging protocol: Radiologic exam of the right hand. 2image(s) are provided. Views: 1 or 2 views. COMPARISON: CR XR hand RT 2V [id number] 12/24/2019 12:37 PM FINDINGS: Bones/joints: There is slightly decreased bone mineralization overall.Osseous alignment is maintained. No interval displaced fracture or dislocation is appreciated. There is some radiocarpal level narrowing along with some degenerative appearance of the 1st carpometacarpal junction and intercarpal junction. There is some subtle ulnar positive variance versus positioning. There is some subtle cortical thickening suggestive of previous injury of the proximal 5th metacarpal bone similar overall. Soft tissues: No radiopaque foreign body or subcutaneous emphysema is appreciated. There is some prominence of the soft tissues overall. There is some skin fold averaging. No other significant interval changes are appreciated. XR/XR hand RT 2V [id number] IMPRESSION: Osseous alignment is maintained. No interval displaced fracture or dislocation is appreciated.
--- NOTE | 2024-01-16 10:45 | USCV_ITS ---
Blunt, Rebecca Age: 73 Gender: F : 1950 Exam Date: 01/16/2024 10:31 Ordering Phys: Chip Savage MD Technologist: CT [place] [facility] [place]: PE PROCEDURES: Venous duplex imaging was performed in bilateral lower extremities. Bilaterally, the common femoral, superficial femoral, profunda femoral, popliteal, posterior tibial, greater saphenous veins, and the peroneal trunk were identified and interrogated in the standard fashion. These veins were found to be easily compressible with spontaneous blood flow. No evidence of insufficiency or thrombus noted. FINDINGS: Normal 2-D Doppler and augmentation and compressibility throughout the lower extremity venous structures. Additional imaging through the proximal calf veins also reveals no thrombus. Limited evaluation of the greater saphenous vein is patent with no thrombus. Small, irregular fluid collection in the area of an injury measures 3.2 cm. CONCLUSIONS No DVT bilateral lower extremities. Dr. Ericka Haas DO (Electronically Signed) Final Date: 16 January 2024 13:40 S
== END 2024-01-16 09:51 | disposition home or self-care (01) ==
LOC: RAD 09:52
PROVIDERS: PCP Family Medicine; Visit Provider Family Medicine
DX: M17.12 Unilateral primary osteoarthritis, left knee (principal); M19.041 Primary osteoarthritis, right hand; M79.89 Other specified soft tissue disorders; W19.XXXA Unspecified fall, initial encounter
CPT/HCPCS: 73120; 73562; 93970

== ENCOUNTER 2024-01-18 06:00 | Outpatient (RCR) | payer MEDICARE, OTHER, SELFPAY | END 2024-01-19 23:59 | disposition home or self-care (01) | LOC: APT 06:00 | PROVIDERS: PCP Family Medicine; Visit Provider Family Medicine | DX: R26.9 Unspecified abnormalities of gait and mobility (principal); R29.6 Repeated falls; Z09 Encounter for follow-up examination after completed treatment for conditions other than malignant neoplasm; Z87.2 Personal history of diseases of the skin and subcutaneous tissue | CPT/HCPCS: 97110; 97163; 99212 ==

== ENCOUNTER 2024-01-20 06:00 | Outpatient (RCR) | payer MEDICARE, OTHER, SELFPAY | END 2024-02-18 23:59 | disposition home or self-care (01) | LOC: APT 06:00 | PROVIDERS: PCP Family Medicine; Visit Provider Orthopaedic Surgery | DX: M54.2 Cervicalgia (principal); G89.29 Other chronic pain | CPT/HCPCS: 97110 ==

== ENCOUNTER 2024-01-20 06:00 | Outpatient (RCR) | payer MEDICARE, OTHER, SELFPAY | END 2024-02-18 23:59 | disposition home or self-care (01) | LOC: APT 06:00 | PROVIDERS: PCP Family Medicine; Visit Provider Family Medicine | DX: R26.9 Unspecified abnormalities of gait and mobility (principal) | CPT/HCPCS: 97110; 97112; 97530 ==

== ENCOUNTER → 2024-01-23 10:42 | Outpatient (BNVA) | payer MEDICARE, OTHER, SELFPAY | PROVIDERS: PCP Family Medicine; Visit Provider Internal Medicine Rheumatology | DX: M47.812 Spondylosis without myelopathy or radiculopathy, cervical region (principal); M47.816 Spondylosis without myelopathy or radiculopathy, lumbar region; R76.8 Other specified abnormal immunological findings in serum; M19.90 Unspecified osteoarthritis, unspecified site; Z79.899 Other long term (current) drug therapy; Z71.85 Encounter for immunization safety counseling | CPT/HCPCS: 99214 ==

== ENCOUNTER → 2024-01-26 12:43 | Outpatient (BNVA) | payer MEDICARE, OTHER, SELFPAY | PROVIDERS: PCP Family Medicine; Visit Provider Orthopaedic Surgery | DX: M54.2 Cervicalgia (principal); M47.12 Other spondylosis with myelopathy, cervical region | CPT/HCPCS: 99214 ==

== ENCOUNTER 2024-02-17 12:00 | Outpatient (CLI) | payer MEDICARE, OTHER, SELFPAY ==
[2024-02-17 12:33] LABS: Basophils # 0.1 10^3/uL (0.0-0.1); Basophils % 1.4 %; Eosinophils # 0.1 10^3/uL (0.0-0.8); Eosinophils % 1.2 %; Hematocrit 33.2 % (36-47); Lymphocytes # 1.6 10^3/uL (0.8-4.8); Lymphocytes % 36.7 %; Mean Corpuscular HGB Conc 31.9 g/dL (30-55); Mean Corpuscular Volume 97.1 fl (85-98); Mean Platelet Volume 9.1 fL (7.4-10.4); Monocytes # 0.4 10^3/uL (0.2-0.9); Monocytes % 9.3 %; Neutrophils % 51.2 %; Nucleated Red Blood Cells % 0 %; Platelet Count 322 10^3/cmm (157-399); Red Blood Count 3.42 10^6/uL (3.85-5.65); Red Cell Distribution Width 14.7 % (12.1-15.1)
[2024-02-17 12:54] LABS: Albumin Level 3.7 g/dL (3.5-5.2); Anion Gap 11.6 (5-19); Blood Urea Nitrogen 13 mg/dL (8-23); Calcium 9.1 mg/dL (8.5-10.5); Carbon Dioxide 32 mmol/L (22-29); Chloride 100 mmol/L (98-107); Glucose 114 mg/dL (65-115); Phosphorus 3.9 mg/dL (2.5-4.5); Potassium 3.6 mmol/L (3.5-5.1); Sodium 140 mmol/L (136-145)
[2024-02-17 13:01] LABS: Creatinine Urine, Random 145 mg/dL (28-217); Microalbum Creatinine Ratio Ur 7 mg/dL (0-20); Microalbumin Random Urine 1 ug/dL (0-20)
[2024-02-17 13:09] LABS: 25 Hydroxy Vitamin D 33 ng/mL (30-100)
[2024-02-17 15:02] LABS: Parathyroid Hormone 158.3 pg/mL (15-65)
== END 2024-02-17 12:01 | disposition home or self-care (01) ==
LOC: LAB 12:01
PROVIDERS: PCP Family Medicine; Visit Provider Registered Nurse
DX: N18.32 Chronic kidney disease, stage 3b (principal); N25.81 Secondary hyperparathyroidism of renal origin; E55.9 Vitamin D deficiency, unspecified
CPT/HCPCS: 36415; 80069; 82044; 82306; 82310; 83970; 85025

== ENCOUNTER 2024-02-19 06:00 | Outpatient (RCR) | payer MEDICARE, OTHER, SELFPAY | END 2024-03-20 23:59 | disposition home or self-care (01) | LOC: APT 06:00 | PROVIDERS: PCP Family Medicine; Visit Provider Family Medicine | DX: R26.9 Unspecified abnormalities of gait and mobility (principal) | CPT/HCPCS: 97110; 97530 ==

== ENCOUNTER → 2024-03-27 10:06 | Outpatient (BNVA) | payer MEDICARE, OTHER, SELFPAY | PROVIDERS: PCP Family Medicine; Visit Provider Anesthesiology Pain Medicine | DX: M50.90 Cervical disc disorder, unspecified, unspecified cervical region; M54.9 Dorsalgia, unspecified; M25.511 Pain in right shoulder; M54.12 Radiculopathy, cervical region | CPT/HCPCS: 99214 ==